=== PATIENT | female | born 1970 | race Caucasian/White ===

== ENCOUNTER 2016-04-28 16:58 | Emergency (ER) | payer SELFPAY ==
[~2016-04-28] VITALS: Ht 162.6 cm; Wt 142.9 kg
[~2016-04-28 16:58] MED LIST: CALC-927 PO; CETI10TA20 PO; CITA20TA12 PO; CYAN250010 PO; FISH1CAP15 PO; HYDR-3729 PO; HYDR12.56 PO; IBUP-1773 PO; IBUP200C75 PO; LISI10TA2 PO; ORLI120C22 PO
--- NOTE | 2016-04-28 17:51 | ED Back Pain ---
General Chief Complaint: Back Problems Stated Complaint: BACK PAIN Nursing Triage Note: AMBULATED TO ROOM 03 WITH COMPLAINTS OF NON INJURY MID BACK PAIN X1 WEEK. Nursing Sepsis Screen: No Definite Risk Source of Information: Patient Exam Limitations: No Limitations History of Present Illness Time Seen by Provider: 17:48 Initial Comments 45-year-old female patient presents to the emergency department complaining to mid to low back pain beginning one week ago. Patient states symptoms began the evening have a mock trauma drill that she was involved in. Location: Lumbar Spine, Paraspinous Muscles Timing/Duration: 1 Week, Constant Pain/Injury Location: Back Radiation: Other Method of Injury: Unknown Modifying Factors: Improves With Immobilization, Worse With Movement Associated Symptoms: muscle spasmsNo fever, No weakness, No numbness in legs/ feet, No tingling in legs/feet, No sensory/motor loss, lower back painNo loss of bladder control, No loss of bowel control Allergies and Home Medications Allergies Coded Allergies: Vezqbzb-Hqf-Tdc Reductase Inhibitor (Verified Allergy, Intermediate, FATIGUE, 11/08/15) Home Medications Calcium Carb/Mag Ox/Zinc Sulf 1 Each Tablet 1 EACH PO DAILY (Reported) Cetirizine HCl 10 Mg Tablet 10 MG PO DAILY (Reported) Citalopram Hydrobromide 20 Mg Tablet 20 MG PO DAILY (Reported) Cyanocobalamin (Vitamin B-12) 2,500 Mcg Tablet 2,500 MCG PO DAILY (Reported) Fish Oil/Dha/Epa 1 Each Capsule 1 EACH PO DAILY (Reported) Hydrochlorothiazide 12.5 Mg Tablet 12.5 MG PO DAILY (Reported) Hydrocodone/Acetaminophen 1 Each Tablet #20 1-2 EACH PO Q4H PRN PRN PAIN Prescribed by: MAGNOLIA ADAM on 01/14/16 1232 Ibuprofen 600 Mg Tablet #30 600 MG PO Q6H Prescribed by: MAGNOLIA ADAM on 01/14/16 1232 Lisinopril 10 Mg Tablet 10 MG PO DAILY (Reported) Orlistat 120 Mg Capsule 120 MG PO TID (Reported) Prednisone 20 Mg Tab #10 40 MG PO DAILY Prescribed by: UNA BURKETT on 04/28/161913 Tramadol HCl 50 Mg Tablet #14 50 MG PO Q4H PRN PRN PAIN Prescribed by: UNA BURKETT on 04/28/161913 Constitutional: no symptoms reported Respiratory: no symptoms reported Cardiovascular: no symptoms reported Gastrointestinal: No abdominal pain, No constipation, No diarrhea, No nausea, No vomiting Genitourinary: No decreased output, No dysuria, No frequency, No hematuria, No pain Musculoskeletal: back painNo joint pain, No neck pain Skin: no symptoms reported Psychiatric/Neurological: Denies Numbness, Denies Paresthesia, Denies Tingling , Denies Weakness All Other Systems Reviewed Negative Unless Noted: Yes (Negative excepted noted.) Past Sgnmcvs-Ukkvmz-Sroqcz Hx Patient Social History Type Used: Cigarettes Recent Foreign Travel: No Contact w/Someone Who Travel: No Recent Infectious Disease Expo: No Recent Hopitalizations: No Seasonal Allergies Seasonal Allergies: Yes Surgeries HX Surgeries: Yes (PINS IN LEFT HIP, BOWEL REPAIR FROM C-SECTON, FATTY TUMOR ABDOMEN, WISDOM T) Surgeries: Section Respiratory Hx Respiratory Disorders: Yes (SEASONAL) Respiratory Disorders: Asthma Cardiovascular Hx Cardiac Disorders: Yes Cardiac Disorders: Hypertension Neurological Hx Neurological Disorders: No Reproductive System Hx Reproductive Disorders: Yes (MENORRHAGIA) Sexually Transmitted Disease: No HIV/AIDS: No Female Reproductive Disorders: Menstrual Problems, Endometriosis Genitourinary Hx Genitourinary Disorders: No Gastrointestinal Hx Gastrointestinal Disorders: Yes (FATTY LIVER) Gastrointestinal Disorders: Chronic Constipation Musculoskeletal Hx Musculoskeletal Disorders: Yes (HIP PAIN) Musculoskeletal Disorders: Arthritis Endocrine Hx Endocrine Disorders: Yes (HYPOGLYCEMIC EPISODES) HEENT HX ENT Disorders: Yes (PARTIAL) Loss of Vision: Denies Hearing Impairment: Denies Cancer Hx Cancer: No Psychosocial Hx Psychiatric Problems: Yes Behavioral Health Disorders: Anxiety Integumentary HX Skin/Integumentary Disorder: Yes (STRESS RELATED) Skin/Integumentary Disorders: Eczema Blood Transfusions Hx Blood Disorders: Yes (HX ANEMIA) Adverse Reaction to a Blood Tr: No Reviewed Nursing Assessment Reviewed/Agree w Nursing PMH: Yes Family Medical History Significant Family History: No Pertinent Family Hx Physical Exam Vital Signs Vital Sign - Last 12Hours 04/28/16 17:15 Temp 98.0 Pulse 81 Resp 16 B/P 147/87 Pulse Ox 98 Capillary Refill : Less Than 3 Seconds General Appearance: No Apparent Distress WD/WN Cardiovascular: Regular Rate, Rhythm No Edema No Murmur Normal Peripheral Pulses Respiratory: Lungs Clear Normal Breath Sounds No Respiratory Distress Peripheral Pulses: 2+ Dorsalis Pedis (R), 2+ Left Dors-Pedis (L) Gastrointestinal: Non Tender SoftNo Distended Back: Normal Inspection Decreased Range of Motion Muscle Spasm Vertebral Tenderness (lumbar tenderness. ) Extremity: Normal Capillary Refill Normal Inspection Normal Range of Motion Non Tender Neurologic/Psychiatric: Alert Oriented x3 No Motor/Sensory Deficits Normal Mood/Affect Skin: Normal Color Warm/Dry Progress/Results/Core Measures Results/Orders My Orders Orders-UNA BURKETT Hydrocodone/Apap 5/325 Tablet (Lortab 5 (04/28/16 18:26) T-Spine 3v-Ap, Lat, Swimmers (04/28/16 18:26) Vital Signs/I&O Vital Sign - Last 12Hours 04/28/16 04/28/16 17:15 19:32 Temp 98.0 98.0 Pulse 81 81 Resp 16 16 B/P 147/87 Pulse Ox 98 98 Blood Pressure Mean: 107 Diagnostic Imaging Diagonstic Imaging: Xray Plain Films/CT/US/NM/MRI: other (thoracic spine) Comments FINDINGS: Alignment of the thoracic spine appears within normal limits. The vertebral body heights appear maintained. There are multilevel degenerative endplate changes present as well as some anterolateral mid thoracic osteophytes. The visualized portion of lungs is clear. Heart size appears normal. IMPRESSION: 1. Normal height and alignment of the thoracic spine. 2. Multilevel degenerative endplate changes with multilevel anterolateral bridging osteophytes. Dictated on workstation # [id number] Reviewed: Reviewed by Me (radiology report reviewed by me) Departure Communication Progress Notes Diagnostic findings discussed with the patient. Patient reports improvement in symptoms with medications. Plan for discharge to home. All return precautions were discussed with the patient as described in the discharge instructions of this report. Patient voices understanding and agrees with the treatment plan. Impression Impression: Primary Impression: Thoracic back pain Qualified Code: M54.6 - Pain in thoracic spine Disposition: HOME, SELF-CARE Condition: Improved Departure-Patient Inst. Decision time for Depature: 19:12 Referrals: HEIDY SHIPMAN DO (PCP) Primary Care Physician DIANN OROZCO (Family) Primary Care Physician Patient Instructions: Upper Back Pain (DC), Muscle Strain (DC) Add. Discharge Instructions: All discharge instructions reviewed with patient and/or family. Voiced understanding. Medications as instructed. Ibuprofen 800 mg by mouth every 8 hours as needed for pain. Ice packs or heating pads as needed for pain. No heavy lifting, pushing, pulling, twisting, bending, climbing 7 days. Follow- up with her family practitioner if no improvement in symptoms in 7-10 days. Return to the emergency department for worsened pain, numbness, weakness, bowel incontinence, bladder incontinence, or any other concerns. Scripts Tramadol HCl 50 Mg Bnvblj36 Mg PO Q4H PRN PAIN #14 TAB Ref 0 Prov:UNA BURKETT 04/28/16 Prednisone 20 Mg Tab40 Mg PO DAILY #10 TAB Ref 0 Prov:UNA BURKETT 04/28/16 UNA BURKETT Apr 28, 2016 17:51
[2016-04-28] MEDS ORDERED: HYDROcodone/APAP 5 MG/325 MG (LORTAB) TAB PO STA (18:26)
--- NOTE | 2016-04-28 19:05 | Diagnostic Imaging Report ---
INDICATION: Upper back pain. No known trauma. FINDINGS: Alignment of the thoracic spine appears within normal limits. The vertebral body heights appear maintained. There are multilevel degenerative endplate changes present as well as some anterolateral mid thoracic osteophytes. The visualized portion of lungs is clear. Heart size appears normal. IMPRESSION: 1. Normal height and alignment of the thoracic spine. 2. Multilevel degenerative endplate changes with multilevel anterolateral bridging osteophytes. Dictated by: Dictated on workstation # [id number]
[2016-04-28] MEDS ORDERED: PRD20T PO (19:14)
[2016-04-28] MEDS ORDERED: TRAM50TA2 PO (19:14)
[2016-04-28 19:32] VITALS: BP 147/87
== END 2016-04-28 19:32 | disposition home or self-care (01) ==
LOC: EDUNIT# 16:58 → ER 17:00
DX: M47.814 Spondylosis without myelopathy or radiculopathy, thoracic region (principal); I10 Essential (primary) hypertension; Z79.899 Other long term (current) drug therapy
CPT/HCPCS: 72072; 99281

== ENCOUNTER → 2017-07-25 | Outpatient (CLI) | payer SELFPAY ==
[~2017-07-25] MED LIST changes: +PRD20T PO; +TRAM50TA2 PO
--- NOTE | 2017-07-25 10:15 | Diagnostic Imaging Report ---
EXAMINATION: Two views of the left hip INDICATION: Left hip pain. FINDINGS: There has been prior fixation of the left femoral neck. There is abnormal morphology demonstrated of the humeral head with a flattened superior margin and advanced arthritic changes present within the left hip with acetabular osteophyte formation and sclerosis. There is no evidence of an acute fracture or suspicious bone lesion. IMPRESSION: 1. Remote fixation of the left femoral neck, with morphologically abnormal left femoral head and advanced secondary left hip osteoarthritic changes. Dictated by: Dictated on workstation # [id number]
--- NOTE | 2017-07-25 10:19 | Diagnostic Imaging Report ---
EXAMINATION: Two views of the right hip INDICATION: Right hip pain. FINDINGS: There are some mild osteoarthritic changes within the right hip. There is no dislocation. There is no acute fracture. There is some small calcification at the acetabular roof which could relate to underlying labral pathology. Visualized portions of the pelvic ring unremarkable. IMPRESSION: 1. Mild right hip osteoarthritic changes without evidence of an acute fracture or dislocation. Some calcification at the lateral acetabular roof may be reflective of underlying acetabular labral pathology. Dictated by: Dictated on workstation # [id number]
== END ==
LOC: RAD 08:41
PROVIDERS: ATTEND Nurse Practitioner Family
DX: M16.0 Bilateral primary osteoarthritis of hip (principal)
CPT/HCPCS: 73502

== ENCOUNTER 2018-06-10 17:00 | Emergency (ER) | payer SELFPAY ==
[~2018-06-10] VITALS: Ht 162.6 cm; Wt 143.8 kg
[~2018-06-10 17:00] MED LIST changes: +IBUP-2185 PO; -IBUP200C75 PO
--- OUTSIDE RECORDS SUMMARY | 2018-06-10 17:05 | XMS REPORT ---
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 Role Phone DIANN OROZCO Unavailable PROBLEMS Type Condition ICD9-CM Code LTD84-FJ Code Onset Dates Condition Status SNOMED Code Problem Anxiety F41.9 Active 91411782 Problem Colon cancer screening Z12.11 Active 864225637 Problem Metabolic syndrome X E88.81 Active 677985220 Problem Primary osteoarthritis of left hip M16.12 Active 336593938 Problem Slow transit constipation K59.01 Active 56794415 Problem BMI 45.0-49.9, adult Z68.42 Active 177520478 Problem Essential (primary) hypertension I10 Active 90958396 Problem Breast cancer screening Z12.31 Active 002586027 Problem Gynecologic exam normal Z01.419 Active 773170160 Problem Influenza A J10.1 Active 885818588 Problem External hemorrhoid, bleeding K64.4 Active 66747052 Problem Right upper quadrant abdominal pain R10.11 Active 695989295 Problem Constipation, chronic K59.00 Active 055063632 Problem Fatty liver K76.0 Active 606576243 Problem Hip pain, left M25.552 Active 16498988 Problem Maida-menopausal N95.1 Active 389556620718813 Problem Morbid obesity, unspecified obesity type E66.01 Active 780418041 Problem Right lateral abdominal pain R10.9 Active 458129430 Problem Vaginal candidiasis B37.3 Active 58375558 Problem Urinary incontinence, unspecified type R32 Active 064174308 Problem Lumbago with sciatica, left side M54.42 Active 781398611 ALLERGIES No Information ENCOUNTERS [facility]counter Location Date [facility] [address] [id number] [place] [id number] Jan, [facility] [address] [id number] [place] [id number] Jan, Encounter for immunization Z23 [facility] [address] [id number][place] [id number] Dec, [facility] [address] [id number], [place] [id number] Dec, Dyshidrotic eczema L30.1 [facility] [address] [facility] [id number] [place] [address] Sep, Primary osteoarthritis of left hip M16.12 and Trochanteric bursitis, left hip M70.[address] [facility] [address] [id number], [place] [id number] Sep, [facility] [address] [id number][place] [address] Aug, Hip pain, left M25.552 [facility] [address] [id number][place] [id number] Jul, Hip pain, left M25.[address] [facility] [address] [id number], [place] [id number] Jul, Metabolic syndrome X E88.81 ; Hip pain, left M25.552 ; Morbid obesity, unspecified obesity type E66.01 and BMI 50.0-59.9, adult Z68.[address] [facility] [address] [id number][place] [id number] Apr, [facility] [address] [id number], [place] [id number] Apr, Lumbago with sciatica, left side M54.42 [facility] [address] [id number], [place] [id number] Apr, [facility] [address] [id number], [place] [id number] Mar, Metabolic syndrome X E88.81 ; Anxiety F41.9 ; BMI 45.0-49.9, adult Z68.42 and Encounter for [facility] Z23 [facility] [address] [id number], [place] [id number] Jan, Influenza A J10.1 ; BMI 45.0-49.9, adult Z68.42 and External hemorrhoid, bleeding K64.[address] [facility] [address] [id number], [place] [address] Jan, Colon cancer screening Z12.11 [facility] [address] [id number], [place] [id number] Jan, Gynecologic exam normal Z01.419 ; Breast cancer screening Z12.31 ; Colon cancer screening Z12.11 and BMI 50.0-59.9, adult Z68.[address] [facility] [address] [id number], [place] [id number] Jan, [facility] [address] [id number], [place] [id number] Jan, [facility] [address] [id number], [place] [id number] Nov, Lumbago with sciatica, left side M54.42 [facility] [id number], [place] [id number] Nov, Lumbago with sciatica, left side M54.42 [facility] [address] [id number], [place] [id number] Sep, Metabolic syndrome X E88.81 ; Anxiety F41.9 and Lumbago with sciatica, left side M54.[address] [facility] [address] [id number], [place] [id number] Sep, [facility] [address] [id number], [place] [address] Sep, [facility] [address] [id number], [place] [id number] Sep, Lumbago with sciatica, left side M54.42 [facility] [address] [id number], [place] [id number] Aug, [facility] [address] [id number], [place] [id number] Aug, [facility] [address] [id number], [place] [id number] Jul, Lumbago with sciatica, left side M54.[address] [facility] [address] [id number], [place] [id number] Jul, Anxiety F41.[address] [facility] [address] [id number], [place] [id number] Jul, Lumbago with sciatica, left side M54.42 and Anxiety F41.[address] [facility] [address] [id number] [place] [id number] May, Lumbago with sciatica, left side M54.[address] [facility] [address] [id number], [place] [id number] Feb, Dermatitis L30.9 and Dysuria R30.[address] [facility] [address] [id number], [place] [id number] Jan, Vaginal candidiasis B37.[address] [facility] [address] [id number], [place] [id number] Dec, [facility] [address] [id number], [place] [id number] Dec, Dyshidrotic eczema L30.1 [facility] [address] [address] [id number], [place] [id number] Nov, [facility] [address] [id number], [place] [address] Nov, Unexplained endometrial cells on cervical Pap smear R87.618 and Maida-menopausal N95.1 [facility] [address] [id number], [place] [id number] Oct, Well woman exam with routine gynecological exam Z01.419 ; Urinary incontinence, unspecified type R32 ; Breast cancer screening Z12.39 ; Morbid obesity, unspecified obesity type E66.01 and Maida-menopausal N95.1 [facility] [address] [id number], [place] [id number] Sep, Right lateral abdominal pain R10.9 [facility] [address] [id number][place] [id number] Aug, Fatigue, unspecified type R53.[address] [facility] [address] [id number], [place] [address] Aug, [facility] [address] [id number], [place] [id number] Jul, Essential (primary) hypertension I10 and Right upper quadrant pain R10.[address] [facility] [address] [id number], [place] [id number] Jul, [facility] [address] [address] [id number], [place] [id number] Jul, Acute pain of right knee M25.561 ; Slow transit constipation K59.01 and Fatty liver K76.0 [facility] [address] [id number], [place] [id number] May, [facility] [address] [id number], [place] [id number] Apr, Dental examination Z01.20 [facility] [address] [id number], [place] [id number] Apr, Encounter for dental examination Z01.20 and Dental caries, unspecified K02.9 [facility] [address] [address] [id number], [place] [id number] Mar, Encounter for dental examination Z01.20 [facility] [address] [id number], [place] [id number] Feb, Encounter for dental examination Z01.[address] [facility] [address] [id number], [place] [id number] Jan, [facility] [address] [address] [id number], [place] [id number] Jan, Encounter for dental examination Z01.20 [facility] [address] [place] [address] AVE [id number], [place] [id number] Jan, Right upper quadrant abdominal pain R10.11 ; Fatty liver K76.0 ; Constipation, chronic K59.00 and Morbid obesity due to excess calories E66.01 [facility] [id number], [place] [id number] Dec, [facility] [address] [id number], [place] [id number] Dec, Fatty liver K76.0 ; Slow transit constipation K59.01 and Hip pain , left M25.552 [facility] [id number], [place] [id number] Nov, [facility] [id number], [place] [id number] Nov, Essential (primary) hypertension I10 [facility] [id number], [place] [id number] Oct, [facility] [address] [id number], [place] [id number] Oct, Abdominal pain, right upper quadrant 789.01 ; Constipation 564.00 and Hypertension 401.9 [facility] [address] [id number], [place] [id number] Sep, Right upper quadrant abdominal pain 789.01 IMMUNIZATIONS No Known Immunizations SOCIAL HISTORY Never Assessed REASON FOR VISIT multiple refills PLAN OF CARE VITAL SIGNS MEDICATIONS Medication Instructions Dosage Frequency Start Date End Date Duration Status Gabapentin 300 MG TAKE ONE CAPSULE BY MOUTH ONCE DAILY AT BEDTIME 90 Active Lisinopril 2.5 MG TAKE 1 TABLET BY MOUTH ONCE DAILY 90 Active Hydrochlorothiazide 12.5 MG TAKE 1 CAPSULE BY MOUTH ONCE DAILY 90 Active RESULTS No Results PROCEDURES No Known procedures INSTRUCTIONS MEDICATIONS ADMINISTERED No Known Medications MEDICAL (GENERAL) HISTORY Type Description Date Medical History hypertension Medical History anxiety Medical History asthma Medical History obesity Medical History constipation Medical History fatty liver disease Medical History CT of the abdomen showing fatty liver disease and mild spleenomeagly Medical History high blood pressure Medical History external hemorrhoids Surgical History left hip repair age 11 Surgical History section 1994 Surgical History bowel surgery 1996 Surgical History fatty tumor abdomen 1999 Surgical History Colonscopy Normal 11/2015 Surgical History DNC and Biopsy 2016 Hospitalization History Surgery(s)/Childbirth(s)
--- OUTSIDE RECORDS SUMMARY | 2018-06-10 17:05 | XMS REPORT ---
Author Author DIANN OROZCO [facility] Address [address] [place] [address] Care Team Providers Care Flow Manager Name Role Phone DIANN OROZCO Unavailable PROBLEMS Type Condition ICD9-CM Code AIV63-TY Code Onset Dates Condition Status SNOMED Code Problem Anxiety F41.9 Active 85782562 Problem Colon cancer screening Z12.11 Active 097770220 Problem Metabolic syndrome X E88.81 Active 770027049 Problem Primary osteoarthritis of left hip M16.12 Active 950068071 Problem Slow transit constipation K59.01 Active 97429712 Problem BMI 45.0-49.9, adult Z68.42 Active 063423116 Problem Essential (primary) hypertension I10 Active 15054868 Problem Breast cancer screening Z12.31 Active 023560510 Problem Gynecologic exam normal Z01.419 Active 836133733 Problem Influenza A J10.1 Active 096877660 Problem External hemorrhoid, bleeding K64.4 Active 07827358 Problem Right upper quadrant abdominal pain R10.11 Active 392131892 Problem Constipation, chronic K59.00 Active 924887281 Problem Fatty liver K76.0 Active 445119010 Problem Hip pain, left M25.552 Active 70225127 Problem Maida-menopausal N95.1 Active 796682648245711 Problem Morbid obesity, unspecified obesity type E66.01 Active 337224780 Problem Right lateral abdominal pain R10.9 Active 270803403 Problem Vaginal candidiasis B37.3 Active 40510675 Problem Urinary incontinence, unspecified type R32 Active 126217602 Problem Lumbago with sciatica, left side M54.42 Active 152440058 ALLERGIES No Information ENCOUNTERS Encounter Location Date Diagnosis [facility] [address] [address] [id number] [place] [id number] Jan, [facility] [address] [id number] [place] [id number] Jan, Encounter for immunization Z23 [facility] [address] [id number] [id number] Dec, [facility] [address] [id number], [place] [id number] Dec, Dyshidrotic eczema L30.1 [facility] [address] [facility] [id number] [place] [address] Sep, Primary osteoarthritis of left hip M16.12 and Trochanteric bursitis, left hip M70.[address] [facility] [address] [id number][place] [id number] Sep, [facility] [address] [id number], [place] 986391570 Aug, Hip pain, left M25.552 [facility] [address] [id number], [place] 259639093 Jul, Hip pain, left M25.[address] [facility] [address] [id number], [place] 158278574 Jul, Metabolic syndrome X E88.81 ; Hip pain, left M25.552 ; Morbid obesity, unspecified obesity type E66.01 and BMI 50.0-59.9, adult Z68.[address] [facility] [address] [id number], [place] [id number] Apr, [facility] [address] [id number], [place] [id number] Apr, Lumbago with sciatica, left side M54.42 [facility] [address] [id number], [place] [id number] Apr, [facility] [address] [id number], [place] [id number] Mar, Metabolic syndrome X E88.81 ; Anxiety F41.9 ; BMI 45.0-49.9, adult Z68.42 and Encounter for immunization Z23 [facility] [address] [id number], [place] [id number] Jan, Influenza A J10.1 ; BMI 45.0-49.9, adult Z68.42 and External hemorrhoid, bleeding K64.[address] [facility] [address] [id number], [place] 579412115 Jan, Colon cancer screening Z12.11 [facility] [address] [id number], [place] [id number] Jan, Gynecologic exam normal Z01.419 ; Breast cancer screening Z12.31 ; Colon cancer screening Z12.11 and BMI 50.0-59.9, adult Z68.[address] [facility] [address] [id number], [place] [id number] Jan, [facility] [address] [id number], [place] [id number] Jan, [facility] [address] [id number], [place] [id number] Nov, Lumbago with sciatica, left side M54.42 [facility] [address] [id number], [place] [id number] Nov, Lumbago with sciatica, left side M54.42 [facility] [address] [id number], [place] [id number] Sep, Metabolic syndrome X E88.81 ; Anxiety F41.9 and Lumbago with sciatica, left side M54.[address] [facility] [address] [id number], [place] 190815625 Sep, [facility] [address] [id number], [place] 115497021 Sep, [facility] [address] [id number], [place] 407404012 Sep, Lumbago with sciatica, left side M54.42 [facility] [address] [id number], [place] [id number] Aug, [facility] [address] [id number], [place] [id number] Aug, [facility] [address] [id number], [place] 456979932 Jul, Lumbago with sciatica, left side M54.[address] [facility] [address] [id number], [place] 813669030 Jul, Anxiety F41.9 [facility] [address] [id number], [place] [id number] Jul, Lumbago with sciatica, left side M54.42 and Anxiety F41.9 [facility] [address] [id number] [facility] [id number] May, Lumbago with sciatica, left side M54.[address] [facility] [address] [id number], [place] 520587731 Feb, Dermatitis L30.9 and Dysuria R30.[address] [facility] [address] [id number], [place] 287993893 Jan, Vaginal candidiasis B37.[address] [facility] [address] [id number], [place] 193538884 Dec, [facility] [address] [id number], [place] [id number] Dec, Dyshidrotic eczema L30.1 [facility] [address] [id number], [place] [id number] Nov, [facility] [address] [id number], [place] 855512599 Nov, Unexplained endometrial cells on cervical Pap smear R87.618 and Maida-menopausal N95.1 [facility] [address] [id number], [place] 476915933 Oct, Well woman exam with routine gynecological exam Z01.419 ; Urinary incontinence, unspecified type R32 ; Breast cancer screening Z12.39 ; Morbid obesity, unspecified obesity type E66.01 and Maida-menopausal N95.1 [facility] [address] [id number], [place] 739350137 Sep, Right lateral abdominal pain R10.9 [facility] [address] [id number], [place] [id number] Aug, Fatigue, unspecified type R53.[address] [facility] [address] [id number], [place] 955062204 Aug, [facility] [address] [id number], [place] 933314855 Jul, Essential (primary) hypertension I10 and Right upper quadrant pain R10.[address] [facility] [address] [id number], [place] 407743157 Jul, [facility] [address] [id number], [place] 067505365 Jul, Acute pain of right knee M25.561 ; Slow transit constipation K59.01 and Fatty liver K76.0 [facility] [address] [id number], [place] [id number] May, [facility] [address] [id number], [place] [id number] Apr, Dental examination Z01.20 [facility] [address] [id number], [place] 854383031 Apr, Encounter for dental examination Z01.20 and Dental caries, unspecified K02.9 [facility] [address] [id number], [place] 784836707 Mar, Encounter for dental examination Z01.20 [facility] [address] [id number], [place] 428145780 Feb, Encounter for dental examination Z01.[address] [facility] [address] [id number], [place] [id number] Jan, [facility] [address] [id number], [place] 852741719 Jan, Encounter for dental examination Z01.20 [facility] Sam[facility]go [facility] [address] [id number], [place] 691669771 Jan, Right upper quadrant abdominal pain R10.11 ; Fatty liver K76.0 ; Constipation, chronic K59.00 and Morbid obesity due to excess calories E66.01 [facility] R[address]am[address] [place] [address] AVE [id number], [place] [id number] Dec, [facility] LabsRODRIGUEZ[address] [id number], [place] 284036043 Dec, Fatty liver K76.0 ; Slow transit constipation K59.01 and Hip pain , left M25.552 [facility] Banegas[address] [place] [address] AVE [id number], [place] [id number] Nov, [facility] [address] [id number], [place] 887066383 Nov, Essential (primary) hypertension I10 [facility] LabsRODRIGUEZ [employer] [place] [address] AVE [id number], [place] [id number] Oct, [facility] [address] [id number], [place] 750776960 Oct, Abdominal pain, right upper quadrant 789.01 ; Constipation 564.00 and Hypertension 401.9 [facility] [address] [id number], [place] 991138649 Sep, Right upper quadrant abdominal pain 789.01 IMMUNIZATIONS Vaccine Route Administration Date Status FLULAVAL QUAD 0.5ML (6 MO AND UP) 2017 IM Intramuscular Jan 12, 2018 Administered SOCIAL HISTORY Never Assessed REASON FOR VISIT Flu injection Loraine RN PLAN OF CARE VITAL SIGNS MEDICATIONS Unknown Medications RESULTS No Results PROCEDURES Procedure Date Ordered Result Body Site FLULAVAL QUAD 0.5ML (6 MO AND UP) 2018 Jan 12, 2018 SINGLE IMMUNIZATION ADMIN Jan 12, 2018 INSTRUCTIONS MEDICATIONS ADMINISTERED No Known Medications MEDICAL [...]
--- OUTSIDE RECORDS SUMMARY | 2018-06-10 17:06 | XMS REPORT ---
Author Author DIANN OROZCO [facility] Address [address] [place] [address] Care Team Providers Care Wood Boat Builder Supervisor Name Role Phone DIANN OROZCO Unavailable PROBLEMS Type Condition ICD9-CM Code ONM29-BR Code Onset Dates Condition Status SNOMED Code Problem Anxiety F41.9 Active 96208098 Problem Colon cancer screening Z12.11 Active 714072345 Problem Metabolic syndrome X E88.81 Active 817651392 Problem Primary osteoarthritis of left hip M16.12 Active 156399224 Problem Slow transit constipation K59.01 Active 58592779 Problem BMI 45.0-49.9, adult Z68.42 Active 442617919 Problem Essential (primary) hypertension I10 Active 29971621 Problem Breast cancer screening Z12.31 Active 982237607 Problem Gynecologic exam normal Z01.419 Active 312674160 Problem Influenza A J10.1 Active 993874723 Problem External hemorrhoid, bleeding K64.4 Active 45538943 Problem Right upper quadrant abdominal pain R10.11 Active 933708583 Problem Constipation, chronic K59.00 Active 296670730 Problem Fatty liver K76.0 Active 823761187 Problem Hip pain, left M25.552 Active 39223631 Problem Maida-menopausal N95.1 Active 371985086243724 Problem Morbid obesity, unspecified obesity type E66.01 Active 690547306 Problem Right lateral abdominal pain R10.9 Active 008639063 Problem Vaginal candidiasis B37.3 Active 70984715 Problem Urinary incontinence, unspecified type R32 Active 153441884 Problem Lumbago with sciatica, left side M54.42 Active 043886056 ALLERGIES No Information ENCOUNTERS Encounter Location Date Diagnosis [facility] [address] [facility] [id number] [place] [address] Sep, Primary osteoarthritis of left hip M16.12 and Trochanteric bursitis, left hip M70.62 [facility] [address] [id number], [place] [id number] Sep, [facility] [id number], [place] [id number] Aug, Hip pain, left M25.552 [facility] [address] [id number], [place] [id number] Jul, Hip pain, left M25.552 [facility] MICHAEL Banegas[address] [place] [address] AVE [id number], [place] 123238950 Jul, Metabolic syndrome X E88.81 ; Hip pain, left M25.552 ; Morbid obesity, unspecified obesity type E66.01 and BMI 50.0-59.9, adult Z68.43 [facility] [address] [id number], [place] [id number] Apr, [facility] Banegas[address] [place] [address] AVE [id number], [place] 636672473 Apr, Lumbago with sciatica, left side M54.42 [facility] Banegas[address] [place] [address] AVE [id number], [place] [id number] Apr, [facility] Baneg[address] [place] [address] AVE [id number], [place] 147735956 Mar, Metabolic syndrome X E88.81 ; Anxiety F41.9 ; BMI 45.0-49.9, adult Z68.42 and Encounter for immunization Z23 [facility] [address] [place] [address] AVE [id number], [place] [id number] Jan, Influenza A J10.1 ; BMI 45.0-49.9, adult Z68.42 and External hemorrhoid, bleeding K64.4 [facility] [employer] [place] [address] AVE [id number], [place] [id number] Jan, Colon cancer screening Z12.11 [facility] [employer] [place] [address] AVE [id number], [place] 241124637 Jan, Gynecologic exam normal Z01.419 ; Breast cancer screening Z12.31 ; Colon cancer screening Z12.11 and BMI 50.0-59.9, adult Z68.[address] [facility] [address] [id number] [place] [id number] Jan, [facility] [address] [id number] [facility] [place] [id number] Jan, [facility] [address] [id number] [place] [id number] Nov, Lumbago with sciatica, left side M54.[address] [facility] [address] [id number] [place] [id number] Nov, Lumbago with sciatica, left side M54.42 [facility] [address] [id number] [facility] [place] [address] Sep, Metabolic syndrome X E88.81 ; Anxiety F41.9 and Lumbago with sciatica, left side M54.42 [facility] [address] [id number] [facility] [place] [id number] Sep, [facility] [address] [id number] [facility] [place] [id number] Sep, [facility] [address] [id number] [facility] [address]571247[address] Sep, Lumbago with sciatica, left side M54.42 [facility] [address] [id number] [place] [id number] Aug, [facility] [address] [id number] [place] [id number] Aug, [facility] [address] [id number] [place] [id number] Jul, Lumbago with sciatica, left side M54.[address] [facility] [address] [id number] [place] [address] Jul, Anxiety F41.9 [facility] [address] [id number] [place] 667164582 Jul, Lumbago with sciatica, left side M54.42 and Anxiety F41.9 [facility] [address] [id number], [place] 039401092 May, Lumbago with sciatica, left side M54.[address] [facility] [address] [id number], [place] 217773745 Feb, Dermatitis L30.9 and Dysuria R30.[address] [facility] [address] [id number], [place] 182171385 Jan, Vaginal candidiasis B37.3 [facility] [address] [id number], [place] [id number] Dec, [facility] [address] [id number], [place] 976852482 Dec, Dyshidrotic eczema L30.[address] [facility] [address] [id number], [place] 940452277 Nov, [facility] [address] [id number], [place] 652238378 Nov, Unexplained endometrial cells on cervical Pap smear R87.618 and Maida-menopausal N95.1 [facility] [address] [id number], [place] 445498248 Oct, Well woman exam with routine gynecological exam Z01.419 ; Urinary incontinence, unspecified type R32 ; Breast cancer screening Z12.39 ; Morbid obesity, unspecified obesity type E66.01 and Maida-menopausal N95.1 [facility] [address] [id number], [place] 324408561 Sep, Right lateral abdominal pain R10.9 [facility] [address] [id number], [place] [id number] Aug, Fatigue, unspecified type R53.[address] [facility] [address] [id number], [place] 341265108 Aug, [facility] [address] [id number], [place] 351718917 Jul, Essential (primary) hypertension I10 and Right upper quadrant pain R10.11 [facility] [address] [id number], [place] 498675996 Jul, [facility] [address] [id number], [place] 936838278 Jul, Acute pain of right knee M25.561 ; Slow transit constipation K59.01 and Fatty liver K76.0 [facility] [address] [id number], [place] [id number] May, [facility] [address] [id number], [place] 715086809 Apr, Dental examination Z01.20 [facility] [address] [id number], [place] 567251206 Apr, Encounter for dental examination Z01.20 and Dental caries, unspecified K02.9 [facility] [address] [id number], [place] [id number] Mar, Encounter for dental examination Z01.20 [facility] [address] [id number], [place] 832396926 Feb, Encounter for dental examination Z01.20 [facility] [address] [id number], [place] [id number] Jan, [facility] [address] [id number], [place] [id number] Jan, Encounter for dental examination Z01.20 [facility] [address] [id number], [place] 059429460 Jan, Right upper quadrant abdominal pain R10.11 ; Fatty liver K76.0 ; Constipation, chronic K59.00 and Morbid obesity due to excess calories E66.[address] [facility] [address] [id number], [place] 582694974 Dec, [facility] [address] [id number], [place] 492797868 Dec, Fatty liver K76.0 ; Slow transit constipation K59.01 and Hip pain , left M25.552 [facility] [address] [id number], [place] 539676352 Nov, [facility] [address] [id number], [place] [id number] Nov, Essential (primary) hypertension I10 [facility] Banegas[address] [place] [address] AVE [id number], [place] [id number] Oct, [facility] [address] [id number], [place] 630442461 Oct, Abdominal pain, right upper quadrant 789.01 ; Constipation 564.00 and Hypertension 401.9 [facility] [address] [place] [address] AVE [id number] [place], [place] 122389131 Sep, Right upper quadrant abdominal pain 789.01 IMMUNIZATIONS No Known Immunizations SOCIAL HISTORY Never Assessed REASON FOR VISIT pals celebrex PLAN OF CARE VITAL SIGNS MEDICATIONS Medication Instructions Dosage Frequency Start Date End Date Duration Status Celebrex 200 mg Orally Once a day for pain 1 capsule with food May, Active RESULTS No Results PROCEDURES No Known [...]
--- OUTSIDE RECORDS SUMMARY | 2018-06-10 17:06 | XMS REPORT ---
Author Author DIANN OROZCO [facility] Address [address] [place] [address] Care Team Providers Care Mandolin Repair Person Name Role Phone DIANN OROZCO Unavailable PROBLEMS Type Condition ICD9-CM Code QNQ47-PM Code Onset Dates Condition Status SNOMED Code Problem Anxiety F41.9 Active 29013342 Problem Colon cancer screening Z12.11 Active 970947646 Problem Metabolic syndrome X E88.81 Active 852198803 Problem Primary osteoarthritis of left hip M16.12 Active 117960646 Problem Slow transit constipation K59.01 Active 26280832 Problem BMI 45.0-49.9, adult Z68.42 Active 502923857 Problem Essential (primary) hypertension I10 Active 68872481 Problem Breast cancer screening Z12.31 Active 301417033 Problem Gynecologic exam normal Z01.419 Active 045618931 Problem Influenza A J10.1 Active 155501325 Problem External hemorrhoid, bleeding K64.4 Active 78952259 Problem Right upper quadrant abdominal pain R10.11 Active 836379336 Problem Constipation, chronic K59.00 Active 834502645 Problem Fatty liver K76.0 Active 902366871 Problem Hip pain, left M25.552 Active 28580192 Problem Maida-menopausal N95.1 Active 904509714449371 Problem Morbid obesity, unspecified obesity type E66.01 Active 033590796 Problem Right lateral abdominal pain R10.9 Active 633732933 Problem Vaginal candidiasis B37.3 Active 18883513 Problem Urinary incontinence, unspecified type R32 Active 814273738 Problem Lumbago with sciatica, left side M54.42 Active 243790426 ALLERGIES No Information ENCOUNTERS Encounter Location Date Diagnosis [facility] [address] [facility] [id number] [place] [address] Sep, Primary osteoarthritis of left hip M16.12 and Trochanteric bursitis, left hip M70.62 [facility] [address] [id number], [place] [id number] Sep, [facility] [address] [id number], [place] [address] Aug, Hip pain, left M25.552 [facility] [address] [id number], [place] [id number] Jul, Hip pain, left M25.552 [facility] [address] [place] [address] AVE [id number], [place] 825888920 Jul, Metabolic syndrome X E88.81 ; Hip pain, left M25.552 ; Morbid obesity, unspecified obesity type E66.01 and BMI 50.0-59.9, adult Z68.43 [facility] [address] [id number], [place] [address]24230[address] Apr, [facility] [address] [place] [address] AVE [id number], [place] [id number] Apr, Lumbago with sciatica, left side M54.42 [facility] [address] [place] [address] AVE [id number], [place] [id number] Apr, [facility] [address] [place] [address] AVE [id number], [place] [id number] Mar, Metabolic syndrome X E88.81 ; Anxiety F41.9 ; BMI 45.0-49.9, adult Z68.42 and Encounter for immunization Z23 [facility] [address] [place] [address] AVE [id number], [place] [id number] Jan, Influenza A J10.1 ; BMI 45.0-49.9, adult Z68.42 and External hemorrhoid, bleeding K64.4 [facility] [address] [place] [address] AVE [id number], [place] 764477084 Jan, Colon cancer screening Z12.11 [facility] [address] [place] [address] AVE [id number], [place] 129452952 Jan, Gynecologic exam normal Z01.419 ; Breast cancer screening Z12.31 ; Colon cancer screening Z12.11 and BMI 50.0-59.9, adult Z68.[address] [facility] [address] [id number] [place]IG[place] [employer] [id number] Jan, [facility] [address] [id number] [facility] [place] [address] Jan, [facility] [address] [id number] [place] [employer], [place] [id number] Nov, Lumbago with sciatica, left side M54.[address] [facility] [address] [id number] [place] [address] Nov, Lumbago with sciatica, left side M54.[address] [facility] [address] [id number] [facility] [place] [id number] Sep, Metabolic syndrome X E88.81 ; Anxiety F41.9 and Lumbago with sciatica, left side M54.[address] [facility] [address] [id number] [facility] [place] [id number] Sep, [facility] [address] [id number] [facility] [place] [id number] Sep, [facility] [address] [id number]. [facility]ANCIS [facility] [id number] Sep, Lumbago with sciatica, left side M54.[address] [facility] [address] [id number] [place] [id number] Aug, [facility] [address] [id number] [place] [employer] [id number] Aug, [facility] [address] [id number] [place] [address] Jul, Lumbago with sciatica, left side M54.42 [facility] [address] [id number] RODRIGUEZ [employer] [id number] Jul, Anxiety F41.9 [facility] [address] [id number] [place] [employer], [place] [id number] Jul, Lumbago with sciatica, left side M54.42 and Anxiety F41.9 [facility] [address] [id number], [place] 932702544 May, Lumbago with sciatica, left side M54.[address] [facility] [address] [id number], [place] 953977793 Feb, Dermatitis L30.9 and Dysuria R30.[address] [facility] [address] [id number], [place] 5497296[address] Jan, Vaginal candidiasis B37.[address] [facility] [address] [id number], [place] 9877333[address] Dec, [facility] [address] [id number], [place] 023689476 Dec, Dyshidrotic eczema L30.[address] [facility] [address] [id number], [place] [address] Nov, [facility] [address] [id number], [place] 575[address]507 Nov, Unexplained endometrial cells on cervical Pap smear R87.618 and Maida-menopausal N95.[address] [facility] [address] [id number], [place] 055617894 Oct, Well woman exam with routine gynecological exam Z01.419 ; Urinary incontinence, unspecified type R32 ; Breast cancer screening Z12.39 ; Morbid obesity, unspecified obesity type E66.01 and Maida-menopausal N95.[address] [facility] [address] [id number], [place] 844947691 Sep, Right lateral abdominal pain R10.9 [facility] CRISTOPHER [address] [id number][place] [address]489[address] Aug, Fatigue, unspecified type R53.[address] [facility] [address] [id number], [place] 0795565[address] Aug, [facility] [address] [id number], [place] 379015524 Jul, Essential (primary) hypertension I10 and Right upper quadrant pain R10.11 [facility] [address] [id number], [place] 782407412 Jul, [facility] [address] [id number], [place] 821785776 Jul, Acute pain of right knee M25.561 ; Slow transit constipation K59.01 and Fatty liver K76.0 [facility] [address] [id number], [place] 178670141 May, [facility] [address] [id number], [place] [id number] Apr, Dental examination Z01.20 [facility] [address] [id number], [place] 343061455 Apr, Encounter for dental examination Z01.20 and Dental caries, unspecified K02.9 [facility] [address] [id number], [place] 957715691 Mar, Encounter for dental examination Z01.20 [facility] [address] [id number], [place] 514324331 Feb, Encounter for dental examination Z01.20 [facility] [address] [id number], [place] [id number] Jan, [facility] [address] [id number], [place] 163439735 Jan, Encounter for dental examination Z01.20 [facility] [address] [id number], [place] 302529307 Jan, Right upper quadrant abdominal pain R10.11 ; Fatty liver K76.0 ; Constipation, chronic K59.00 and Morbid obesity due to excess calories E66.[address] [facility] [address] [id number], [place] 989625602 Dec, [facility] [address] [id number], [place] [id number] Dec, Fatty liver K76.0 ; Slow transit constipation K59.01 and Hip pain , left M25.552 [facility] [address] [id number], [place] [id number] Nov, [facility] [address] [id number], [place] [id number] Nov, Essential (primary) hypertension I10 [facility] [address] [place] [address] AVE [id number], [place] [id number] Oct, [facility] [address] [id number], [place] 049305980 Oct, Abdominal pain, right upper quadrant 789.01 ; Constipation 564.00 and Hypertension 401.9 [facility] [address] [place] [address] AVE [id number] [place], [place] [id number] Sep, Right upper quadrant abdominal pain 789.01 IMMUNIZATIONS No Known Immunizations SOCIAL HISTORY Never Assessed REASON FOR VISIT Test results PLAN OF CARE VITAL SIGNS MEDICATIONS Unknown Medications RESULTS No Results PROCEDURES No Known procedures [...]
--- OUTSIDE RECORDS SUMMARY | 2018-06-10 17:06 | XMS REPORT ---
Author Author DIANN OROZCO [facility] Address [address] [place] [address] Care Team Providers Care Adding Machine Operator Name Role Phone DIANN OROZCO Unavailable PROBLEMS Type Condition ICD9-CM Code ZHB48-RF Code Onset Dates Condition Status SNOMED Code Problem Anxiety F41.9 Active 86732751 Problem Colon cancer screening Z12.11 Active 432588491 Problem Metabolic syndrome X E88.81 Active 232814345 Problem Primary osteoarthritis of left hip M16.12 Active 589185389 Problem Slow transit constipation K59.01 Active 32531721 Problem BMI 45.0-49.9, adult Z68.42 Active 917515393 Problem Essential (primary) hypertension I10 Active 40943792 Problem Breast cancer screening Z12.31 Active 311757626 Problem Gynecologic exam normal Z01.419 Active 459294250 Problem Influenza A J10.1 Active 106078920 Problem External hemorrhoid, bleeding K64.4 Active 84649859 Problem Right upper quadrant abdominal pain R10.11 Active 587962453 Problem Constipation, chronic K59.00 Active 451112917 Problem Fatty liver K76.0 Active 264569650 Problem Hip pain, left M25.552 Active 83250942 Problem Maida-menopausal N95.1 Active 403388858069428 Problem Morbid obesity, unspecified obesity type E66.01 Active 499653809 Problem Right lateral abdominal pain R10.9 Active 606938259 Problem Vaginal candidiasis B37.3 Active 11481602 Problem Urinary incontinence, unspecified type R32 Active 430722749 Problem Lumbago with sciatica, left side M54.42 Active 012838779 ALLERGIES No Information ENCOUNTERS Encounter Location Date Diagnosis [facility] [address] [id number] [place] [id number] Dec, Dyshidrotic eczema L30.1 [facility] [address] [facility] [id number] [place] [address] Sep, Primary osteoarthritis of left hip M16.12 and Trochanteric bursitis, left hip M70.62 [facility] [address] [id number], [place] [id number] Sep, [facility] [address] [address] [id number], [place] 379554991 Aug, Hip pain, left M25.552 [facility] [address] [id number], [place] [id number] Jul, Hip pain, left M25.552 [facility] [place] [address] AVE [id number], [place] 891274135 Jul, Metabolic syndrome X E88.81 ; Hip pain, left M25.552 ; Morbid obesity, unspecified obesity type E66.01 and BMI 50.0-59.9, adult Z68.43 [facility] [address] [id number], [place] [id number] Apr, [facility] [address] [employer] [id number], [place] 412980[address] Apr, Lumbago with sciatica, left side M54.42 [facility] [employer] [facility] [address] [id number], [place] [id number] Apr, [facility] R[facility] [address] [place] [address] AVE [id number], [place] 718672535 Mar, Metabolic syndrome X E88.81 ; Anxiety F41.9 ; BMI 45.0-49.9, adult Z68.42 and Encounter for immunization Z23 [facility] [employer] [facility] [address] [id number], [place] 567[address]8880 Jan, Influenza A J10.1 ; BMI 45.0-49.9, adult Z68.42 and External hemorrhoid, bleeding K64.4 [facility] [address] [id number], [place] 769869208 Jan, Colon cancer screening Z12.11 [facility] [address] [id number], [place] [id number] Jan, Gynecologic exam normal Z01.419 ; Breast cancer screening Z12.31 ; Colon cancer screening Z12.11 and BMI 50.0-59.9, adult Z68.43 [facility] [address] [id number] [place] 0490[address] Jan, [facility] [address] [address] [id number] [place] [id number] Jan, [facility] [address] [address] [id number] [place] 2440[address]641 Nov, Lumbago with sciatica, left side M54.[address] [facility] [address] [id number], [place] 921402322 Nov, Lumbago with sciatica, left side M54.42 [facility] [address] [id number], [place] 595666635 Sep, Metabolic syndrome X E88.81 ; Anxiety F41.9 and Lumbago with sciatica, left side M54.42 [facility] [address] [id number], [place] 678657277 Sep, [facility] [address] [id number], [place] [id number] Sep, [facility] [address] [address] [id number], [place] 234157791 Sep, Lumbago with sciatica, left side M54.42 [facility] [address] [id number], [place] [id number] Aug, [facility] [address] [id number], [place] [id number] Aug, [facility] [address] [id number], [place] 205013699 Jul, Lumbago with sciatica, left side M54.[address] [facility] [address] [id number], [place] 393643666 Jul, Anxiety F41.9 [facility] [address] [id number], [place] 181725462 Jul, Lumbago with sciatica, left side M54.42 and Anxiety F41.9 [facility] [address] [id number], [place] 375730225 May, Lumbago with sciatica, left side M54.42 [facility] [address] [id number], [place] 943315710 Feb, Dermatitis L30.9 and Dysuria R30.[address] [facility] [address] [id number], [place] [id number] Jan, Vaginal candidiasis B37.3 [facility] [address] [facility] [address] [id number], [place] 329734250 Dec, [facility] [address] [address] [id number], [place] [id number] Dec, Dyshidrotic eczema L30.1 [facility] [address] [facility] [address] [id number], [place] [id number] Nov, [facility] [address] [facility] [address] [id number], [place] 813279066 Nov, Unexplained endometrial cells on cervical Pap smear R87.618 and Maida-menopausal N95.1 [facility] [address] [facility] [address] [id number], [place] [id number] Oct, Well woman exam with routine gynecological exam Z01.419 ; Urinary incontinence, unspecified type R32 ; Breast cancer screening Z12.39 ; Morbid obesity, unspecified obesity type E66.01 and Maida-menopausal N95.1 [facility] [address] [id number], [place] 817765024 Sep, Right lateral abdominal pain R10.9 [facility] [address] [id number] [place] [address] Aug, Fatigue, unspecified type R53.83 [facility] [address] [id number], [place] 427092711 Aug, [facility] [address] [id number], [place] 448880423 Jul, Essential (primary) hypertension I10 and Right upper quadrant pain R10.11 [facility] [address] [id number], [place] 611546172 Jul, [facility] [address] [id number], [place] 302788194 Jul, Acute pain of right knee M25.561 ; Slow transit constipation K59.01 and Fatty liver K76.0 [facility] [address] [id number], [place] [id number] May, [facility] [address] [facility] [id number] [place] 146407032 Apr, Dental examination Z01.20 [facility] [address] [id number], [place] 897534837 Apr, Encounter for dental examination Z01.20 and Dental caries, unspecified K02.9 [facility] [address] [id number], [place] 786495624 Mar, Encounter for dental examination Z01.20 [facility] [address] [id number], [place] [id number] Feb, Encounter for dental examination Z01.20 [facility] [address] [id number], [place] [id number] Jan, [facility] [address] [id number], [place] 375377672 Jan, Encounter for dental examination Z01.20 [facility] [address] [id number], [place] [id number] Jan, Right upper quadrant abdominal pain R10.11 ; Fatty liver K76.0 ; Constipation, chronic K59.00 and Morbid obesity due to excess calories E66.01 [facility] [address] [id number] [place] [address]15[address] Dec, [facility] [address] [id number], [place] [id number] Dec, Fatty liver K76.0 ; Slow transit constipation K59.01 and Hip pain , left M25.552 [facility] [address] [id number], [place] [address]2091 Nov, [facility] [address] [id number], [place] [id number] Nov, Essential (primary) hypertension I10 [facility] [address]egas[address] [address] AVE [id number], [place] [id number] Oct, [facility] Sam[facility]go [facility] [id number], [place] 842147414 Oct, Abdominal pain, right upper quadrant 789.01 ; Constipation 564.00 and Hypertension 401.9 [facility] [address]egas[address] [address] AVE [id number], [place] 512654467 Sep, Right upper quadrant abdominal pain 789.01 IMMUNIZATIONS No Known Immunizations SOCIAL HISTORY Never Assessed REASON FOR VISIT med refill PLAN OF CARE VITAL SIGNS MEDICATIONS Medication Instructions Dosage Frequency Start Date End Date Duration Status Triamcinolone Acetonide 0.1 % Externally Twice a day 1 application to affected area 12h Dec, 10 days Active RESULTS No Results PROCEDURES No Known [...]
--- OUTSIDE RECORDS SUMMARY | 2018-06-10 17:06 | XMS REPORT ---
Author Author DIANN OROZCO [facility] Address [address] [place] [address] Care Team Providers Care Instructional Supervisor Name Role Phone DIANN OROZCO Unavailable PROBLEMS Type Condition ICD9-CM Code EAW38-OJ Code Onset Dates Condition Status SNOMED Code Problem Anxiety F41.9 Active 16743449 Problem Colon cancer screening Z12.11 Active 482575921 Problem Metabolic syndrome X E88.81 Active 216710125 Problem Primary osteoarthritis of left hip M16.12 Active 387232356 Problem Slow transit constipation K59.01 Active 27227460 Problem BMI 45.0-49.9, adult Z68.42 Active 922805185 Problem Essential (primary) hypertension I10 Active 64775971 Problem Breast cancer screening Z12.31 Active 656191777 Problem Gynecologic exam normal Z01.419 Active 045151705 Problem Influenza A J10.1 Active 143207845 Problem External hemorrhoid, bleeding K64.4 Active 17194699 Problem Right upper quadrant abdominal pain R10.11 Active 457170527 Problem Constipation, chronic K59.00 Active 391378798 Problem Fatty liver K76.0 Active 096581190 Problem Hip pain, left M25.552 Active 99545235 Problem Maida-menopausal N95.1 Active 676842781184580 Problem Morbid obesity, unspecified obesity type E66.01 Active 199331616 Problem Right lateral abdominal pain R10.9 Active 573628971 Problem Vaginal candidiasis B37.3 Active 00327016 Problem Urinary incontinence, unspecified type R32 Active 508402522 Problem Lumbago with sciatica, left side M54.42 Active 853513938 ALLERGIES No Information ENCOUNTERS Encounter Location Date Diagnosis [facility] [address] [id number] [place] [id number] Dec, [address] [id number] [place] [id number] Dec, Dyshidrotic eczema L30.1 [facility] [address] [facility] [id number] [place] [address] Sep, Primary osteoarthritis of left hip M16.12 and Trochanteric bursitis, left hip M70.62 [facility] [address] [id number], [place] [id number] Sep, [facility] [address] [id number], [place] [address] Aug, Hip pain, left M25.552 [facility] [address] [id number], [place] [id number] Jul, Hip pain, left M25.552 [facility] [address] [employer] [address] [id number], [place] [id number] Jul, Metabolic syndrome X E88.81 ; Hip pain, left M25.552 ; Morbid obesity, unspecified obesity type E66.01 and BMI 50.0-59.9, adult Z68.43 [facility] [address] [id number], [place] [id number] Apr, [facility] [address] [employer] [address] [id number], [place] [id number] Apr, Lumbago with sciatica, left side M54.42 [facility] [address] [place] [address] AVE [id number], [place] [id number] Apr, [facility] [address] [employer] [address] [id number], [place] [id number] Mar, Metabolic syndrome X E88.81 ; Anxiety F41.9 ; BMI 45.0-49.9, adult Z68.42 and Encounter for immunization Z23 [facility] [address] [employer] [address] [id number], [place] [address] Jan, Influenza A J10.1 ; BMI 45.0-49.9, adult Z68.42 and External hemorrhoid, bleeding K64.4 [facility] [address] [employer] [address] [id number], [place] [id number] Jan, Colon cancer screening Z12.[address] [facility] [address] [id number], [place] [address]65[address]53[address] Jan, Gynecologic exam normal Z01.419 ; Breast cancer screening Z12.31 ; Colon cancer screening Z12.11 and BMI 50.0-59.9, adult Z68.[address] [facility] [address] [id number], [place] [id number] Jan, [facility] [address] [id number], [place] [address] Jan, [facility] [address] [id number], [place] [id number] Nov, Lumbago with sciatica, left side M54.[address] [facility] [address] [id number], [place] [id number] Nov, Lumbago with sciatica, left side M54.[address] [facility] [address] [id number], [place] 675947577 Sep, Metabolic syndrome X E88.81 ; Anxiety F41.9 and Lumbago with sciatica, left side M54.[address] [facility] [address] [id number], [place] [address] Sep, [facility] [address] [id number], [place] [id number] Sep, [facility] [address] [id number], [place] [address]563718[address] Sep, Lumbago with sciatica, left side M54.[address] [facility] [address] [id number], [place] [id number] Aug, [facility] [address] [id number], [place] 360457637 Aug, [facility] [address] [id number], [place] [address] Jul, Lumbago with sciatica, left side M54.[address] [facility] [address] [id number] [place] [address] Jul, Anxiety F41.[address] [facility] [address] [id number], [place] [id number] Jul, Lumbago with sciatica, left side M54.42 and Anxiety F41.9 [facility] [address] [id number], [place] [address]57[address] May, Lumbago with sciatica, left side M54.[address] [facility] [address] [id number], [place] [address]684[address] Feb, Dermatitis L30.9 and Dysuria R30.[address] [facility] [address] [id number], [place] [address] Jan, Vaginal candidiasis B37.[address] [facility] [address] [id number], [place] [address] Dec, [facility] [address] [id number], [place] [address] Dec, Dyshidrotic eczema L30.1 [facility] [address] [id number], [place] [id number] Nov, [facility] [address] [facility] [address] [id number], [place] [address] Nov, Unexplained endometrial cells on cervical Pap smear R87.618 and Maida-menopausal N95.1 [facility] [address] [id number], [place] [id number] Oct, Well woman exam with routine gynecological exam Z01.419 ; Urinary incontinence, unspecified type R32 ; Breast cancer screening Z12.39 ; Morbid obesity, unspecified obesity type E66.01 and Maida-menopausal N95.[address] [facility] [address] [id number], [place] [address] Sep, Right lateral abdominal pain R10.9 [facility] [address] [id number], [place] [id number] Aug, Fatigue, unspecified type R53.83 [facility] [address] [id number], [place] [id number] Aug, [facility] [address] [id number], [place] [address] Jul, Essential (primary) hypertension I10 and Right upper quadrant pain R10.11 [facility] [address] [id number], [place] [id number] Jul, [facility] [address] [id number], [place] [address] Jul, Acute pain of right knee M25.561 ; Slow transit constipation K59.01 and Fatty liver K76.0 [facility] [address] [id number], [place] [id number] May, [facility] [address] [facility] [id number], [place] [id number] Apr, Dental examination Z01.20 [facility] [address] [id number], [place] [id number] Apr, Encounter for dental examination Z01.20 and Dental caries, unspecified K02.9 [facility] [address] [id number], [place] [id number] Mar, Encounter for dental examination Z01.20 [facility] [address] [id number], [place] [id number] Feb, Encounter for dental examination Z01.20 [facility] [address] [id number], [place] 720[address] Jan, [facility] [address] [id number], [place] [id number] Jan, Encounter for dental examination Z01.20 [facility] [address] [id number], [place] [address]34[address] Jan, Right upper quadrant abdominal pain R10.11 ; Fatty liver K76.0 ; Constipation, chronic K59.00 and Morbid obesity due to excess calories E66.01 [facility] [address] [id number], [place] [address] Dec, [facility] [address] [id number], [place] [id number] Dec, Fatty liver K76.0 ; Slow transit constipation K59.01 and Hip pain , left M25.552 [facility] [address] [id number], [place] [id number] Nov, [facility] [address] [id number], [place] [id number] Nov, Essential (primary) hypertension I10 [facility] [address] [place] [address] AVE [id number], [place] [id number] Oct, [facility] [address] [place] [address] AVE [id number], [place] [id number] Oct, Abdominal pain, right upper quadrant 789.01 ; Constipation 564.00 and Hypertension 401.9 [facility] [address] [place] [address] AVE [id number], [place] [id number] Sep, Right upper quadrant abdominal pain 789.01 IMMUNIZATIONS No Known Immunizations SOCIAL HISTORY Never Assessed REASON FOR VISIT pals arrived PLAN OF CARE VITAL SIGNS MEDICATIONS Unknown [...]
--- OUTSIDE RECORDS SUMMARY | 2018-06-10 17:06 | XMS REPORT ---
Author Author DIANN OROZCO [facility] Address [address] [place] [address] Care Team Providers Care Yeast Maker Name Role Phone DIANN OROZCO Unavailable PROBLEMS Type Condition ICD9-CM Code TPE38-KM Code Onset Dates Condition Status SNOMED Code Problem Anxiety F41.9 Active 47672665 Problem Colon cancer screening Z12.11 Active 287684942 Problem Metabolic syndrome X E88.81 Active 619786407 Problem Primary osteoarthritis of left hip M16.12 Active 610145539 Problem Slow transit constipation K59.01 Active 24883897 Problem BMI 45.0-49.9, adult Z68.42 Active 650199753 Problem Essential (primary) hypertension I10 Active 86264354 Problem Breast cancer screening Z12.31 Active 669596028 Problem Gynecologic exam normal Z01.419 Active 993991579 Problem Influenza A J10.1 Active 238173779 Problem External hemorrhoid, bleeding K64.4 Active 10406384 Problem Right upper quadrant abdominal pain R10.11 Active 556960222 Problem Constipation, chronic K59.00 Active 732615031 Problem Fatty liver K76.0 Active 821125793 Problem Hip pain, left M25.552 Active 57079706 Problem Maida-menopausal N95.1 Active 438619052371413 Problem Morbid obesity, unspecified obesity type E66.01 Active 705955497 Problem Right lateral abdominal pain R10.9 Active 588049318 Problem Vaginal candidiasis B37.3 Active 34186333 Problem Urinary incontinence, unspecified type R32 Active 069279209 Problem Lumbago with sciatica, left side M54.42 Active 453460193 ALLERGIES No Information ENCOUNTERS Encounter Location Date Diagnosis [facility] [address] [facility] [id number] [place] [address] Sep, Primary osteoarthritis of left hip M16.12 and Trochanteric bursitis, left hip M70.62 [facility] [address] [id number], [place] [id number] Sep, [facility] [address] [id number], [place] [id number] Aug, Hip pain, left M25.[address] [id number], [place] [id number] Jul, Hip pain, left M25.552 [facility] [address] [place] [address] AVE [id number], [place] [id number] Jul, Metabolic syndrome X E88.81 ; Hip pain, left M25.552 ; Morbid obesity, unspecified obesity type E66.01 and BMI 50.0-59.9, adult Z68.[address] [id number], [place] [id number] Apr, [facility] [address] [place] [address] AVE [id number], [place] [id number] Apr, Lumbago with sciatica, left side M54.42 [facility] [address] [place] [address] AVE [id number], [place] [id number] Apr, [facility] [address] [place] [address] AVE [id number], [place] [id number] Mar, Metabolic syndrome X E88.81 ; Anxiety F41.9 ; BMI 45.0-49.9, adult Z68.42 and Encounter for immunization Z23 [facility] [address] [place] [address] AVE [id number], [place] [id number] Jan, Influenza A J10.1 ; BMI 45.0-49.9, adult Z68.42 and External hemorrhoid, bleeding K64.4 [facility] [address] [place] [address] AVE [id number], [place] [id number] Jan, Colon cancer screening Z12.11 [facility] [employer] [place] [address] A[address] [id number], [place] [id number] Jan, Gynecologic exam normal Z01.419 ; Breast cancer screening Z12.31 ; Colon cancer screening Z12.11 and BMI 50.0-59.9, adult Z68.[address] [facility] [address] [id number] [place] [id number] Jan, [facility] [address] [id number] [facility] [place] [id number] Jan, [facility] [address] [id number] [place] [id number] Nov, Lumbago with sciatica, left side M54.[address] [facility] [address] [id number] [place] [address] Nov, Lumbago with sciatica, left side M54.[address] [facility] [address] [id number] [facility] [place] [address] Sep, Metabolic syndrome X E88.81 ; Anxiety F41.9 and Lumbago with sciatica, left side M54.42 [facility] [address] [id number] [facility] [id number] Sep, [facility] [address] [id number] [facility] [id number] Sep, [facility] [address] [id number] [id number] Sep, Lumbago with sciatica, left side M54.42 [facility] [address] [id number] [place] [id number] Aug, [facility] [address] [id number] [place] [id number] Aug, [facility] [address] [id number] [place] [address] Jul, Lumbago with sciatica, left side M54.[address] [facility] [address] [id number] [place] [address] Jul, Anxiety F41.9 [facility] [address] [id number] [place] [address] Jul, Lumbago with sciatica, left side M54.42 and Anxiety F41.9 [facility] [address] [id number], [place] [id number] May, Lumbago with sciatica, left side M54.[address] [facility] [address] [id number], [place] [address]40696162 Feb, Dermatitis L30.9 and Dysuria R30.[address] [facility] [address] [id number], [place] 084438391 Jan, Vaginal candidiasis B37.3 [facility] [address] [id number], [place] [id number] Dec, [facility] [address] [id number], [place] 696752599 Dec, Dyshidrotic eczema L30.[address] [facility] [address] [id number], [place] 485584482 Nov, [facility] [address] [id number], [place] 976278366 Nov, Unexplained endometrial cells on cervical Pap smear R87.618 and Maida-menopausal N95.1 [facility] [address] [id number], [place] 6658[address] Oct, Well woman exam with routine gynecological exam Z01.419 ; Urinary incontinence, unspecified type R32 ; Breast cancer screening Z12.39 ; Morbid obesity, unspecified obesity type E66.01 and Maida-menopausal N95.1 [facility] [address] [id number], [place] 46666[address] Sep, Right lateral abdominal pain R10.9 [facility] [address] [id number], [place] [id number] Aug, Fatigue, unspecified type R53.83 [facility] [address] [id number], [place] 108088276 Aug, [facility] [address] [id number], [place] [id number] Jul, Essential (primary) hypertension I10 and Right upper quadrant pain R10.11 [facility] [address] [id number], [place] [id number] Jul, [facility] [address] [id number], [place] 005341068 Jul, Acute pain of right knee M25.561 ; Slow transit constipation K59.01 and Fatty liver K76.0 [facility] [address] [id number], [place] [id number] May, [facility] [address] [id number], [place] [address] Apr, Dental examination Z01.20 [facility] [address] [id number], [place] [id number] Apr, Encounter for dental examination Z01.20 and Dental caries, unspecified K02.9 [facility] [address] [id number], [place] [id number] Mar, Encounter for dental examination Z01.20 [facility] [address] [id number], [place] [id number] Feb, Encounter for dental examination Z01.20 [facility] [address] [id number], [place] [id number] Jan, [facility] [address] [id number], [place] [id number] Jan, Encounter for dental examination Z01.20 [facility] [address] [id number], [place] 478238218 Jan, Right upper quadrant abdominal pain R10.11 ; Fatty liver K76.0 ; Constipation, chronic K59.00 and Morbid obesity due to excess calories E66.01 [facility] [address] [id number], [place] [id number] Dec, [facility] [address] [id number], [place] [id number] Dec, Fatty liver K76.0 ; Slow transit constipation K59.01 and Hip pain , left M25.552 [facility] [address] [id number], [place] 695[address] Nov, [facility] [address] [id number], [place] 844[address]13[address] Nov, Essential (primary) hypertension I10 [facility] [address] [id number], [place] [id number] Oct, [facility] [address] [id number], [place] [id number] Oct, Abdominal pain, right upper quadrant 789.01 ; Constipation 564.00 and Hypertension 401.9 [facility] [address] [place] [address] A[address] [id number] [place] [id number] Sep, Right upper quadrant abdominal pain 789.01 IMMUNIZATIONS No Known Immunizations SOCIAL HISTORY Never Assessed REASON FOR VISIT pals celebrex PLAN OF CARE VITAL SIGNS MEDICATIONS Unknown [...]
--- OUTSIDE RECORDS SUMMARY | 2018-06-10 17:07 | XMS REPORT ---
Author Author DIANN OROZCO Organization [facility]RODRIGUEZ Address [address] [place] [address] Care Team Providers Care Digital Media Planner Name Role Phone DIANN OROZCO Unavailable PROBLEMS Type Condition ICD9-CM Code PRB64-OV Code Onset Dates Condition Status SNOMED Code Problem Lumbago with sciatica, left side M54.42 Active 112638740 Problem Metabolic syndrome X E88.81 Active 289056503 Problem Anxiety F41.9 Active 87862679 Problem BMI 45.0-49.9, adult Z68.42 Active 880032666 Problem Essential (primary) hypertension I10 Active 66742087 Problem Influenza A J10.1 Active 765140606 Problem Gynecologic exam normal Z01.419 Active 098600253 Problem Colon cancer screening Z12.11 Active 446741173 Problem External hemorrhoid, bleeding K64.4 Active 81112277 Problem Breast cancer screening Z12.31 Active 743820548 Problem Hip pain, left M25.552 Active 28468806 Problem Right upper quadrant abdominal pain R10.11 Active 846466504 Problem Slow transit constipation K59.01 Active 14256343 Problem Fatty liver K76.0 Active 422403403 Problem Maida-menopausal N95.1 Active 297547106181051 Problem Urinary incontinence, unspecified type R32 Active 857014300 Problem Constipation, chronic K59.00 Active 342834624 Problem Morbid obesity, unspecified obesity type E66.01 Active 093469096 Problem Right lateral abdominal pain R10.9 Active 572766546 Problem Vaginal candidiasis B37.3 Active 80357454 ALLERGIES No Information ENCOUNTERS Encounter Location Date Diagnosis [facility] [address] [address] [id number] [place] [id number] Apr, [facility] [address] [id number] [place], [place] [id number] Apr, Lumbago with sciatica, left side M54.[address] [facility] [address] [id number], [place] [id number] Apr, [facility] [address] [place] [address] AVE [id number], [place] [id number] Mar, Metabolic syndrome X E88.81 ; Anxiety F41.9 ; BMI 45.0-49.9, adult Z68.42 and Encounter for immunization Z23 [facility] [address] [place] [address] AVE [id number], [place] [id number] Jan, Influenza A J10.1 ; BMI 45.0-49.9, adult Z68.42 and External hemorrhoid, bleeding K64.4 [facility] [address] [id number], [place] [id number] Jan, Colon cancer screening Z12.11 [facility] [address] [place] [address] AVE [id number], [place] [id number] Jan, Gynecologic exam normal Z01.419 ; Breast cancer screening Z12.31 ; Colon cancer screening Z12.11 and BMI 50.0-59.9, adult Z68.43 [facility] [address] [facility] [address] [id number], [place] [id number] Jan, [facility] [address] [place] [address] A[address] [id number], [place] [id number] Jan, [facility] [address] [place] [address] AVE [id number], [place] [id number] Nov, Lumbago with sciatica, left side M54.42 [facility] [address] [id number], [place] [id number] Nov, Lumbago with sciatica, left side M54.42 [facility] [address] [id number], [place] [address]86[address] Sep, Metabolic syndrome X E88.81 ; Anxiety F41.9 and Lumbago with sciatica, left side M54.42 [facility] [address] [id number], [place] [id number] Sep, [facility] [address] [id number] [place] [id number] Sep, [facility] [address] [id number] [place] [id number] Sep, Lumbago with sciatica, left side M54.[address] [facility] [address] [id number] [place] [id number] Aug, [facility] [address] [id number] [place] [id number] Aug, [facility] [address] [id number] [place] [id number] Jul, Lumbago with sciatica, left side M54.[address] [facility] [address] [id number] [place] [id number] Jul, Anxiety F41.9 [facility] [address] [id number] [place] [id number] Jul, Lumbago with sciatica, left side M54.42 and Anxiety F41.9 [facility] [address] [id number] HOSPITAL, [place] [id number] May, Lumbago with sciatica, left side M54.[address] [facility] [address] [id number] [facility]OSPITAL, [place] [id number] Feb, Dermatitis L30.9 and Dysuria R30.[address] [facility] [address] [id number], [place] [id number] Jan, Vaginal candidiasis B37.[address] [facility] [address] [id number] [place] [id number] Dec, [facility] [address] [id number] HOSPITAL, [place] [id number] Dec, Dyshidrotic eczema L30.[address] [facility] [address] [id number] [place] [address] Nov, [facility] [address] [id number], [place] [address] 13 Nov, 2015 Unexplained endometrial cells on cervical Pap smear R87.618 and Maida-menopausal N95.1 [facility] [address] [id number], [place] [id number] 28 Oct, 2015 Well woman exam with routine gynecological exam Z01.419 ; Urinary incontinence, unspecified type R32 ; Breast cancer screening Z12.39 ; Morbid obesity, unspecified obesity type E66.01 and Maida-menopausal N95.1 [facility] [address] [id number], [place] [address] Sep, Right lateral abdominal pain R10.9 [facility] CRISTOPHER [address] [id number], [place] [address] Aug, Fatigue, unspecified type R53.83 [facility] [address] [id number], [place] [id number] Aug, [facility] [address] [id number], [place] [address] Jul, Essential (primary) hypertension I10 and Right upper quadrant pain R10.11 [facility] [address] [id number], [place] [id number] Jul, [facility] [address] [id number], [place] [id number] Jul, Acute pain of right knee M25.561 ; Slow transit constipation K59.01 and Fatty liver K76.0 [facility] [address] [id number], [place] [id number] May, [facility] [address] [id number], [place] [id number] Apr, Dental examination Z01.20 [facility] [address] [id number], [place] [id number] 03 Apr, 2015 Encounter for dental examination Z01.20 and Dental caries, unspecified K02.9 [facility] [address] [id number], [place] [id number] Mar, Encounter for dental examination Z01.20 [facility] [address] [id number], [place] [id number] Feb, Encounter for dental examination Z01.[address] [facility] [address] [id number], [place] [id number] Jan, [facility] [address] [id number], [place] [id number] Jan, Encounter for dental examination Z01.20 [facility] [address] [id number], [place] [id number] Jan, Right upper quadrant abdominal pain R10.11 ; Fatty liver K76.0 ; Constipation, chronic K59.00 and Morbid obesity due to excess calories E66.01 [facility] [address] [id number], [place] [id number] Dec, [facility] [address] [address] [id number], [place] [address]26[address] Dec, Fatty liver K76.0 ; Slow transit constipation K59.01 and Hip pain , left M25.552 [facility] [address] [facility] [address] [id number], [place] [address] Nov, [facility] [address] [id number], [place] [id number] Nov, Essential (primary) hypertension I10 [facility] [address] [place] [address] AVE [id number], [place] [id number] Oct, [facility] [address] [id number], [place] [id number] Oct, Abdominal pain, right upper quadrant 789.01 ; Constipation 564.00 and Hypertension 401.9 [facility] R[facility] [address] [place] [address] AVE [id number], [place] 15068[address]70 Sep, Right upper quadrant abdominal pain 789.01 IMMUNIZATIONS No Known Immunizations SOCIAL HISTORY Never Assessed REASON FOR VISIT Baclofen refill PLAN OF CARE VITAL SIGNS MEDICATIONS Medication Instructions Dosage Frequency Start Date End Date Duration Status Baclofen 20 MG Orally every 8 hrs 1/2 tablet with food or milk as needed 8h 20 May, 2016 Active RESULTS No Results PROCEDURES No Known [...]
--- OUTSIDE RECORDS SUMMARY | 2018-06-10 17:07 | XMS REPORT ---
Author Author DIANN OROZCO Organization [employer] Address Unknown Phone Unavailable Care Team Providers Care Elderly Companion Name Role Phone DIANN OROZCO CP Unavailable Allergies No Known Allergies Problems Problem Type Condition Code Onset Dates Condition Status Problem Slow transit constipation K59.01 Active Problem Hip pain, left M25.552 Active Problem Fatty liver K76.0 Active Problem Essential (primary) hypertension I10 Active Medications No Known Medications Results No Known Results Summary Purpose [employer] Submission
--- OUTSIDE RECORDS SUMMARY | 2018-06-10 17:07 | XMS REPORT ---
Author Author DIANN OROZCO [facility] Address [address] [place] [address] Care Team Providers Care Blue Print Control Clerk Name Role Phone DIANN OROZCO Unavailable PROBLEMS Type Condition ICD9-CM Code QTX25-HC Code Onset Dates Condition Status SNOMED Code Problem Lumbago with sciatica, left side M54.42 Active 744234842 Problem Metabolic syndrome X E88.81 Active 142284784 Problem Anxiety F41.9 Active 59601272 Problem BMI 45.0-49.9, adult Z68.42 Active 013740253 Problem Essential (primary) hypertension I10 Active 64448456 Problem Influenza A J10.1 Active 818261935 Problem Gynecologic exam normal Z01.419 Active 234860399 Problem Colon cancer screening Z12.11 Active 272047246 Problem External hemorrhoid, bleeding K64.4 Active 86583696 Problem Breast cancer screening Z12.31 Active 729263125 Problem Hip pain, left M25.552 Active 04151941 Problem Right upper quadrant abdominal pain R10.11 Active 649041160 Problem Slow transit constipation K59.01 Active 97938797 Problem Fatty liver K76.0 Active 259878067 Problem Maida-menopausal N95.1 Active 078558084393742 Problem Urinary incontinence, unspecified type R32 Active 977929029 Problem Constipation, chronic K59.00 Active 444793065 Problem Morbid obesity, unspecified obesity type E66.01 Active 210624354 Problem Right lateral abdominal pain R10.9 Active 468706169 Problem Vaginal candidiasis B37.3 Active 71951513 ALLERGIES No Information ENCOUNTERS Encounter Location Date Diagnosis [facility] [address] [facility] [id number] [place] [address] Sep, [facility] [address] [facility] [address] [id number] [place] [id number] Aug, Hip pain, left M25.552 [facility] [address] [id number] [place] [id number] Jul, Hip pain, left M25.552 [facility] [address] [id number] [place] [address] Jul, Metabolic syndrome X E88.81 ; Hip pain, left M25.552 ; Morbid obesity, unspecified obesity type E66.01 and BMI 50.0-59.9, adult Z68.43 [facility] [address] [id number] [place] [id number] Apr, [facility] [address] [id number] [place] [id number] Apr, Lumbago with sciatica, left side M54.42 [facility] [address] [place] [address] AVE [id number] [place] [id number] Apr, [facility] [employer] [place] [address] AVE [id number] [place] 16087[address] Mar, Metabolic syndrome X E88.81 ; Anxiety F41.9 ; BMI 45.0-49.9, adult Z68.42 and Encounter for immunization Z23 [facility] [employer] [place] [address] AVE [id number] [place] [id number] Jan, Influenza A J10.1 ; BMI 45.0-49.9, adult Z68.42 and External hemorrhoid, bleeding K64.4 [facility] [employer] [place] [address] AVE [id number] [place] [id number] Jan, Colon cancer screening Z12.11 [facility] [employer] [place] [address] AVE [id number] [place] [id number] Jan, Gynecologic exam normal Z01.419 ; Breast cancer screening Z12.31 ; Colon cancer screening Z12.11 and BMI 50.0-59.9, adult Z68.43 [facility] [address] [employer])[address] [id number] [place] [id number] Jan, [facility] [address] [employer]) A[address] [id number] [place] [id number] Jan, [facility] [address] [id number] [place] [id number] Nov, Lumbago with sciatica, left side M54.[address] [facility] [address] [id number] [place] 919[address] Nov, Lumbago with sciatica, left side M54.[address] [facility] [address] [id number] [place] [id number] Sep, Metabolic syndrome X E88.81 ; Anxiety F41.9 and Lumbago with sciatica, left side M54.[address] [facility] [address] [id number] [place] [address] Sep, [facility] [address] [id number] [place] 880569226 Sep, [facility] [address] [id number] [place] [id number] Sep, Lumbago with sciatica, left side M54.[address] [facility] [address] [id number] [place] [id number] Aug, [facility] [address] [id number] [place] [id number] Aug, [facility] [address] [id number] [place] [id number] Jul, Lumbago with sciatica, left side M54.[address] [facility] [address] [id number] [place] [address] Jul, Anxiety F41.9 [facility] [address] [id number] [place] [id number] Jul, Lumbago with sciatica, left side M54.42 and Anxiety F41.9 [facility] [address] [id number] [place] [id number] May, Lumbago with sciatica, left side M54.[address] [facility] [address] [id number] [place] [address]80543461 Feb, Dermatitis L30.9 and Dysuria R30.0 [facility] [address] [id number] [place] 439383471 Jan, Vaginal candidiasis B37.3 [facility] [address] [place] [address] AVE [id number] [place] [id number] Dec, [facility] [address] [id number] [place] [id number] Dec, Dyshidrotic eczema L30.1 [facility] [address] [place] [address] AVE [id number] [place] [id number] Nov, [facility] R[address]Z [address] [place] [address] AVE [id number] [place] 038294819 Nov, Unexplained endometrial cells on cervical Pap smear R87.618 and Maida-menopausal N95.1 [facility] [address] [place] [address] AVE [id number] [place] [id number] Oct, Well woman exam with routine gynecological exam Z01.419 ; Urinary incontinence, unspecified type R32 ; Breast cancer screening Z12.39 ; Morbid obesity, unspecified obesity type E66.01 and Maida-menopausal N95.1 [facility] R[address] [place] [address] AV [id number] [place] 695[address]3359 Sep, Right lateral abdominal pain R10.9 [facility] [address] [id number] ANGELES, [place] 538[address] Aug, Fatigue, unspecified type R53.83 [facility] [address] [id number] [place] [id number] Aug, [facility] [address] [facility] [address] [id number] [place] [id number] Jul, Essential (primary) hypertension I10 and Right upper quadrant pain R10.11 [facility] [address] [id number] [place] [id number] Jul, [facility] [address] [id number] [place] 029152235 Jul, Acute pain of right knee M25.561 ; Slow transit constipation K59.01 and Fatty liver K76.0 [facility] [address] [id number] [place] [id number] May, [facility] [address] [facility] [id number] [place] [id number] Apr, Dental examination Z01.20 [facility] [address] [id number] [place] [id number] Apr, Encounter for dental examination Z01.20 and Dental caries, unspecified K02.9 [facility] [address] [id number] [place] [id number] Mar, Encounter for dental examination Z01.20 [facility] [address] [id number] [place] 855106449 Feb, Encounter for dental examination Z01.20 [facility] [address] [id number] [place] [id number] Jan, [facility] [address] [id number] [place] [id number] Jan, Encounter for dental examination Z01.20 [facility] [address] [id number] [place] 954[address]43[address] Jan, Right upper quadrant abdominal pain R10.11 ; Fatty liver K76.0 ; Constipation, chronic K59.00 and Morbid obesity due to excess calories E66.[address] [facility] [address] [id number] [place] 859[address]1440 Dec, [facility] [address] [id number] [place], [place] 515343807 Dec, Fatty liver K76.0 ; Slow transit constipation K59.01 and Hip pain , left M25.[address] [facility] [address] [id number] [place] [id number] Nov, [facility] [address] [id number] [place] [id number] Nov, Essential (primary) hypertension I10 [facility] [address] [facility] [address] [id number] [place] [id number] Oct, [facility] [facility] [address] [id number] [place] [address] Oct, Abdominal pain, right upper quadrant 789.01 ; Constipation 564.00 and Hypertension 401.9 [facility] [address] [id number] [place] [id number] Sep, Right upper quadrant abdominal pain 789.01 IMMUNIZATIONS No Known Immunizations SOCIAL HISTORY Never Assessed REASON FOR VISIT Medication refill request PLAN OF CARE VITAL SIGNS MEDICATIONS Medication Instructions Dosage Frequency Start Date End Date Duration Status Baclofen 10 mg Orally every 8 hrs as needed 1 tablet with food or milk May, Active RESULTS No Results PROCEDURES No [...]
--- OUTSIDE RECORDS SUMMARY | 2018-06-10 17:07 | XMS REPORT ---
Author Author PAM DIANN [facility] Address [address] [place] [address] Care Team Providers Care Sausage Mixer Name Role Phone DIANN OROZCO Unavailable PROBLEMS Type Condition ICD9-CM Code XSC07-SC Code Onset Dates Condition Status SNOMED Code Problem Anxiety F41.9 Active 85496216 Problem Colon cancer screening Z12.11 Active 886362931 Problem Metabolic syndrome X E88.81 Active 047353420 Problem Primary osteoarthritis of left hip M16.12 Active 245456965 Problem Slow transit constipation K59.01 Active 95354179 Problem BMI 45.0-49.9, adult Z68.42 Active 316881274 Problem Essential (primary) hypertension I10 Active 86844062 Problem Breast cancer screening Z12.31 Active 818441243 Problem Gynecologic exam normal Z01.419 Active 758146013 Problem Influenza A J10.1 Active 938250673 Problem External hemorrhoid, bleeding K64.4 Active 94565250 Problem Right upper quadrant abdominal pain R10.11 Active 503508650 Problem Constipation, chronic K59.00 Active 054719546 Problem Fatty liver K76.0 Active 024400329 Problem Hip pain, left M25.552 Active 09569177 Problem Maida-menopausal N95.1 Active 960731112406370 Problem Morbid obesity, unspecified obesity type E66.01 Active 540317225 Problem Right lateral abdominal pain R10.9 Active 685847991 Problem Vaginal candidiasis B37.3 Active 84094028 Problem Urinary incontinence, unspecified type R32 Active 031532868 Problem Lumbago with sciatica, left side M54.42 Active 094953684 ALLERGIES Substance Reaction Event Type Date Status Simvastatin fatigue Drug Allergy Jul, Active Lovastatin fatigue Drug Allergy Jul, Active ENCOUNTERS Encounter Location Date Diagnosis [facility] [address] [facility] [id number] [place] [address] Sep, Primary osteoarthritis of left hip M16.12 and Trochanteric bursitis, left hip M70.62 [facility] [address] [id number], [place] [address] Sep, [facility] [address] [id number], [place] [id number] Aug, Hip pain, left M25.552 [facility] [address] [place] [address] AVE [id number], [place] [id number] Jul, Hip pain, left M25.552 [facility] [address] [id number], [place] [address]7079[address] Jul, Metabolic syndrome X E88.81 ; Hip pain, left M25.552 ; Morbid obesity, unspecified obesity type E66.01 and BMI 50.0-59.9, adult Z68.43 [facility] [address] [place] [address] AVE [id number], [place] [id number] Apr, [facility] [address] [facility] A[address] [id number], [place] [id number] Apr, Lumbago with sciatica, left side M54.42 [facility] [address] [place] [address] AVE [id number], [place] [id number] Apr, [facility] [address] [place] [address] AVE [id number], [place] [id number] Mar, Metabolic syndrome X E88.81 ; Anxiety F41.9 ; BMI 45.0-49.9, adult Z68.42 and Encounter for immunization Z23 [facility] [address] [place] [address] AVE [id number], [place] [id number] Jan, Influenza A J10.1 ; BMI 45.0-49.9, adult Z68.42 and External hemorrhoid, bleeding K64.4 [facility] [address] [id number], [place] [id number] Jan, Colon cancer screening Z12.11 [facility] [address] [place] [address] AVE [id number], [place] 116016936 Jan, Gynecologic exam normal Z01.419 ; Breast cancer screening Z12.31 ; Colon cancer screening Z12.11 and BMI 50.0-59.9, adult Z68.[address] [facility] [address] [id number] [place] [address] Jan, [facility] [address] [id number] [place] [id number] Jan, [facility] [address] [id number] [place] [address]46[address] Nov, Lumbago with sciatica, left side M54.[address] [facility] [address] [id number] [place] 8989[address] Nov, Lumbago with sciatica, left side M54.[address] [facility] [address] [id number], [place] [id number] Sep, Metabolic syndrome X E88.81 ; Anxiety F41.9 and Lumbago with sciatica, left side M54.[address] [facility] [address] [id number], [place] [id number] Sep, [facility] [address] [id number], [place] [id number] Sep, [facility] [address] [id number], [place] [id number] Sep, Lumbago with sciatica, left side M54.42 [facility] [address] [id number], [place] [id number] Aug, [facility] [address] [id number] [place] 802807[address] Aug, [facility] [address] [id number], [place] 810962878 Jul, Lumbago with sciatica, left side M54.[address] [facility] [address] [id number], [place] 125201843 Jul, Anxiety F41.9 [facility] [address] [id number], [place] 309221977 Jul, Lumbago with sciatica, left side M54.42 and Anxiety F41.9 [facility] [address] [id number], [place] 503196275 May, Lumbago with sciatica, left side M54.[address] [facility] [address] [id number], [place] 956426785 Feb, Dermatitis L30.9 and Dysuria R30.[address] [facility] [address] [id number], [place] 926506741 Jan, Vaginal candidiasis B37.3 [facility] [address] [id number], [place] [address] Dec, [facility] [address] [id number], [place] 229878546 Dec, Dyshidrotic eczema L30.1 [facility] [address] [id number], [place] 401010113 Nov, [facility] [address] [address] [facility] [address] [id number], [place] 693[address] Nov, Unexplained endometrial cells on cervical Pap smear R87.618 and Maida-menopausal N95.1 [facility] [address] [facility] [address] [id number], [place] [id number] Oct, Well woman exam with routine gynecological exam Z01.419 ; Urinary incontinence, unspecified type R32 ; Breast cancer screening Z12.39 ; Morbid obesity, unspecified obesity type E66.01 and Maida-menopausal N95.1 [facility] [address] [id number], [place] [id number] Sep, Right lateral abdominal pain R10.9 [facility] CRISTOPHER [address] [id number], [place] [address]55969696 Aug, Fatigue, unspecified type R53.83 [facility] [address] [id number], [place] 355907741 Aug, [facility] [address] [id number], [place] 502506739 Jul, Essential (primary) hypertension I10 and Right upper quadrant pain R10.11 [facility] [address] [id number], [place] 920372324 Jul, [facility] [address] [place] [address] AVE [id number], [place] 022872892 Jul, Acute pain of right knee M25.561 ; Slow transit constipation K59.01 and Fatty liver K76.0 [facility] [address] [id number], [place] [id number] May, [facility] [address] [facility] [id number] [place] 53488[address] Apr, Dental examination Z01.20 [facility] [address] [id number], [place] 730581231 Apr, Encounter for dental examination Z01.20 and Dental caries, unspecified K02.9 [facility] [address] [id number], [place] 820484728 Mar, Encounter for dental examination Z01.20 [facility] [address] [id number], [place] [id number] Feb, Encounter for dental examination Z01.20 [facility] [address] [id number], [place] [id number] Jan, [facility] [address] [id number], [place] 343879314 Jan, Encounter for dental examination Z01.20 [facility] [address] [id number], [place] 189168968 Jan, Right upper quadrant abdominal pain R10.11 ; Fatty liver K76.0 ; Constipation, chronic K59.00 and Morbid obesity due to excess calories E66.01 [facility] [address] [id number], [place] [address]23204926 Dec, [facility] [id number], [place] 460366813 Dec, Fatty liver K76.0 ; Slow transit constipation K59.01 and Hip pain , left M25.552 [facility] [address] [id number], [place] [id number] Nov, [facility]goRODRIGUEZ[address]ISCOLL[address] [place] [address] AVE [id number], [place] [id number] Nov, Essential (primary) hypertension I10 [facility] [address] [place] [address] AVE [id number], [place] [id number] Oct, [facility] [address] [place] [address] AVE [id number], [place] 453209900 Oct, Abdominal pain, right upper quadrant 789.01 ; Constipation 564.00 and Hypertension 401.9 [facility] [address] [id number], [place] [id number] Sep, Right upper quadrant abdominal pain 789.01 IMMUNIZATIONS No Known Immunizations SOCIAL HISTORY Never Assessed REASON FOR VISIT Diabetes bferrisma PLAN OF CARE Activity Details Follow Up 6 Months Reason:metabolic syndrome VITAL SIGNS Height 65.25 in 2017-07-21 Weight 309.5 lbs 2017-07-21 Temperature 98.1 degrees Fahrenheit 2017-07-21 Heart Rate 76 bpm 2017-07-21 Respiratory Rate 16 2017-07-21 Oximetry 96 % 2017-07-21 BMI 51.10 kg/m2 2017-07-21 Blood pressure systolic 118 mmHg 2017-07-21 Blood pressure diastolic 76 mmHg 2017-07-21 MEDICATIONS Medication Instructions Dosage Frequency Start Date End Date Duration Status Triamcinolone Acetonide 0.1 % Externally Twice a day 1 application to affected area 12h Dec, 10 days Active Albuterol Sulfate (2.5 MG/3ML) 0.083% Inhalation every 6 hrs as needed 3 ml Aug, 30 days Active Celebrex 200 mg Orally Once a day for pain 1 capsule with food May, Active ProAir HFA 108 (90 Base) MCG/ACT Inhalation every 4 hrs 2 puffs as needed 4h Active BusPIRone HCl 10 mg Orally Twice a day 1 tablet 12h Jul, Active Baclofen 10 mg Orally every 8 hrs as needed 1 tablet with food or milk May, Active Xenical 120 MG Orally 3 times a day with meals 1 capsule with meals Jan, 17 Oct, 2017 90 days Active Gabapentin 300 MG TAKE ONE CAPSULE BY MOUTH ONCE DAILY AT BEDTIME 90 Active Lisinopril 2.5 MG TAKE 1 TABLET BY MOUTH ONCE DAILY 90 Active Promethazine VC/Codeine 6.25-5-10 MG/5ML Orally every 6 hrs 5 ml as needed for congestion and cough 6h 19 Jan, 2017 Active Citalopram Hydrobromide 20 MG TAKE ONE TABLET BY MOUTH DAILY. 90 Active Ultram 50 mg Orally 2 times a day 1 tablet as needed for severe back pain only 12h Jul, Active Voltaren 1 % Transdermal 4 times a day as directed 6h Dec, Active Hydrochlorothiazide 12.5 MG TAKE 1 CAPSULE BY MOUTH ONCE DAILY 90 Active Zyrtec Allergy 10 MG Active Ibuprofen 800 MG TAKE ONE TABLET BY MOUTH THREE TIMES DAILY NEEDED FOR PAIN. 30 Not-Taking RESULTS Name Result Date Reference Range A1C (IN HOUSE) 2017-07-21 A1C IN HOUSE 5.4 4.3 - 5.6 % Previous A1c 6.3 Lot [id number] Exp date 05/29 PROCEDURES Procedure Date Ordered Result Body Site GLYCATED HEMOGLOBIN TEST July 21, 2017 INSTRUCTIONS MEDICATIONS ADMINISTERED No Known Medications MEDICAL [...]
--- OUTSIDE RECORDS SUMMARY | 2018-06-10 17:07 | XMS REPORT ---
Author Author DIANN OROZCO [facility] Address [address] [place] [address] Care Team Providers Care Knitter Operator Name Role Phone DIANN OROZCO Unavailable PROBLEMS Type Condition ICD9-CM Code RNH78-DL Code Onset Dates Condition Status SNOMED Code Problem Lumbago with sciatica, left side M54.42 Active 578037349 Problem Metabolic syndrome X E88.81 Active 751984677 Problem Anxiety F41.9 Active 35771007 Problem BMI 45.0-49.9, adult Z68.42 Active 807109462 Problem Essential (primary) hypertension I10 Active 45183929 Problem Influenza A J10.1 Active 609125885 Problem Gynecologic exam normal Z01.419 Active 901408052 Problem Colon cancer screening Z12.11 Active 939578850 Problem External hemorrhoid, bleeding K64.4 Active 47772342 Problem Breast cancer screening Z12.31 Active 516867611 Problem Hip pain, left M25.552 Active 51662431 Problem Right upper quadrant abdominal pain R10.11 Active 100414162 Problem Slow transit constipation K59.01 Active 19042170 Problem Fatty liver K76.0 Active 063210101 Problem Maida-menopausal N95.1 Active 368762231960776 Problem Urinary incontinence, unspecified type R32 Active 301628570 Problem Constipation, chronic K59.00 Active 665044641 Problem Morbid obesity, unspecified obesity type E66.01 Active 930368362 Problem Right lateral abdominal pain R10.9 Active 550178696 Problem Vaginal candidiasis B37.3 Active 91427934 ALLERGIES No Information ENCOUNTERS Encounter Location Date Diagnosis [facility] [address] [facility] [id number] [place] [address] Sep, [facility] [address] [facility] [address] [id number] [place] 117[address] Aug, Hip pain, left M25.552 [facility] [address] [id number] FALLS[place] [id number] Jul, Hip pain, left M25.552 [facility] [address] [id number] FALLS, [place] 283789453 Jul, Metabolic syndrome X E88.81 ; Hip pain, left M25.552 ; Morbid obesity, unspecified obesity type E66.01 and BMI 50.0-59.9, adult Z68.43 [facility] [address] [id number] FALLS, [place] 814400887 Apr, [facility] [address] [id number] [place]ALLS, [place] 590707712 Apr, Lumbago with sciatica, left side M54.42 [facility] [address] [place] [address] AVE [id number] FALLS, [place] [id number] Apr, [facility] [address] [place] [address] AVE [id number] [place]ALLS, [place] 897993993 Mar, Metabolic syndrome X E88.81 ; Anxiety F41.9 ; BMI 45.0-49.9, adult Z68.42 and Encounter for immunization Z23 [facility] [address] [place] [address] AVE [id number] FALLS, [place] [id number] Jan, Influenza A J10.1 ; BMI 45.0-49.9, adult Z68.42 and External hemorrhoid, bleeding K64.4 [facility] [address] [place] [address] AVE [id number] FALLS, [place] [id number] Jan, Colon cancer screening Z12.11 [facility] [address] [place] [address] AVE [id number] FALLS, [place] 549549569 Jan, Gynecologic exam normal Z01.419 ; Breast cancer screening Z12.31 ; Colon cancer screening Z12.11 and BMI 50.0-59.9, adult Z68.43 [facility] [address] [id number] [place]ALLS, [place] 034939[address] Jan, [facility] [address] [id number] FALLS, [place] 627453819 Jan, [facility] [address] [id number] [place] 9408892[address] Nov, Lumbago with sciatica, left side M54.[address] [facility] [address] [id number] [place] 528729[address] Nov, Lumbago with sciatica, left side M54.[address] [facility] [address] [id number] [place] [address] Sep, Metabolic syndrome X E88.81 ; Anxiety F41.9 and Lumbago with sciatica, left side M54.42 [facility] [address] [id number] [place] [address] Sep, [facility] [address] [id number] FALLS, [place] [id number] Sep, [facility] [address] [id number] FALLS, [place] 880746135 Sep, Lumbago with sciatica, left side M54.42 [facility] [address] [id number] [place] [id number] Aug, [facility] [address] [id number] FALLS, [place] 786388385 Aug, [facility] [address] [id number] [place] [address]76[address] Jul, Lumbago with sciatica, left side M54.[address] [facility] [address] [id number] [place], [place] 536843428 Jul, Anxiety F41.9 [facility] [address] [id number] [place] 129641603 Jul, Lumbago with sciatica, left side M54.42 and Anxiety F41.9 [facility] [address] [id number] [place] [address] May, Lumbago with sciatica, left side M54.42 [facility] [address] [id number] FALLS, [place] 196503846 Feb, Dermatitis L30.9 and Dysuria R30.0 [facility] [address] [id number] FALLS, [place] 569615228 Jan, Vaginal candidiasis B37.3 [facility] [address] [place] [address] AVE [id number] FALLS, [place] 782467786 Dec, [facility] [address] [id number] [place]ALLS, [place] 835145488 Dec, Dyshidrotic eczema L30.1 [facility] [address] [place] [address] AVE [id number] FALLS, [place] [id number] Nov, [facility] [address] [place] [address] AVE [id number] FALLS, [place] 629642941 Nov, Unexplained endometrial cells on cervical Pap smear R87.618 and Maida-menopausal N95.1 [facility] [address] [place] [address] AVE [id number] FALLS, [place] 010994868 Oct, Well woman exam with routine gynecological exam Z01.419 ; Urinary incontinence, unspecified type R32 ; Breast cancer screening Z12.39 ; Morbid obesity, unspecified obesity type E66.01 and Maida-menopausal N95.1 [facility] Development[facility] [address] [place] [address] AV [id number] FALLS, [place] [id number] Sep, Right lateral abdominal pain R10.9 [facility] [address] [id number], [place] [address]74503395 Aug, Fatigue, unspecified type R53.83 [facility] [address] [id number] [place]ALLS, [place] 484951764 Aug, [facility] [address] [facility] [address] [id number] [place]ALLS, [place] 957139071 Jul, Essential (primary) hypertension I10 and Right upper quadrant pain R10.11 [facility] [address] [id number] FALLS, [place] [id number] Jul, [facility] [address] [id number] FALLS, [place] 909675717 Jul, Acute pain of right knee M25.561 ; Slow transit constipation K59.01 and Fatty liver K76.0 [facility] [address] [id number] FALLS, [place] [id number] May, [facility] [address] [facility] [id number] [place] [address] Apr, Dental examination Z01.20 [facility] [address] [id number] FALLS, [place] [id number] Apr, Encounter for dental examination Z01.20 and Dental caries, unspecified K02.9 [facility] [address] [id number] FALLS, [place] 725409795 Mar, Encounter for dental examination Z01.20 [facility] [address] [id number] [place]ALLS, [place] [id number] Feb, Encounter for dental examination Z01.20 [facility] [address] [id number] [place]ALLS, [place] 729107611 Jan, [facility] [address] [id number] FALLS, [place] [id number] Jan, Encounter for dental examination Z01.20 [facility] [address] [id number] FALLS, [place] 952999720 Jan, Right upper quadrant abdominal pain R10.11 ; Fatty liver K76.0 ; Constipation, chronic K59.00 and Morbid obesity due to excess calories E66.01 [facility] [address] [id number] FALLS, [place] [id number] Dec, [facility] [address] [id number] FALLS, [place] 779012369 Dec, Fatty liver K76.0 ; Slow transit constipation K59.01 and Hip pain , left M25.552 [facility] [address] [id number] FALLS, [place] 344493707 Nov, [facility] [address] [id number] [place] [id number] Nov, Essential (primary) hypertension I10 [facility] Sam[facility] [address] [id number] FALLS, [place] [id number] Oct, [facility] [address] [id number] [place] [id number] Oct, Abdominal pain, right upper quadrant 789.01 ; Constipation 564.00 and Hypertension 401.9 [facility] [address] [id number] [place] 608748985 Sep, Right upper quadrant abdominal pain 789.01 IMMUNIZATIONS No Known Immunizations SOCIAL HISTORY Never Assessed REASON FOR VISIT PLAN OF CARE VITAL SIGNS MEDICATIONS Unknown [...]
--- OUTSIDE RECORDS SUMMARY | 2018-06-10 17:07 | XMS REPORT ---
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 Name Role Phone DIANN OROZCO Unavailable PROBLEMS Type Condition ICD9-CM Code OWU85-PQ Code Onset Dates Condition Status SNOMED Code Problem Lumbago with sciatica, left side M54.42 Active 260157970 Problem Metabolic syndrome X E88.81 Active 184485241 Problem Anxiety F41.9 Active 95405931 Problem BMI 45.0-49.9, adult Z68.42 Active 834046018 Problem Essential (primary) hypertension I10 Active 03052216 Problem Influenza A J10.1 Active 979526900 Problem Gynecologic exam normal Z01.419 Active 650653162 Problem Colon cancer screening Z12.11 Active 789906557 Problem External hemorrhoid, bleeding K64.4 Active 72937166 Problem Breast cancer screening Z12.31 Active 142482797 Problem Hip pain, left M25.552 Active 70000294 Problem Right upper quadrant abdominal pain R10.11 Active 093154485 Problem Slow transit constipation K59.01 Active 51845739 Problem Fatty liver K76.0 Active 732753651 Problem Maida-menopausal N95.1 Active 494066886954030 Problem Urinary incontinence, unspecified type R32 Active 122556794 Problem Constipation, chronic K59.00 Active 988612468 Problem Morbid obesity, unspecified obesity type E66.01 Active 545504374 Problem Right lateral abdominal pain R10.9 Active 158018130 Problem Vaginal candidiasis B37.3 Active 04951270 ALLERGIES No Information ENCOUNTERS Encounter Location Date Diagnosis [facility] [address] [facility] [id number] [place] [address] Sep, [facility] [address] [facility] [address] [id number] [place] [id number] Aug, Hip pain, left M25.552 [facility] [address] [id number], [place] [id number] Jul, Hip pain, left M25.552 [facility] [address] [id number], [place] 288217817 Jul, Metabolic syndrome X E88.81 ; Hip pain, left M25.552 ; Morbid obesity, unspecified obesity type E66.01 and BMI 50.0-59.9, adult Z68.43 [facility] [address] [id number], [place] [id number] Apr, [facility] [address] [id number], [place] [address]75[address] Apr, Lumbago with sciatica, left side M54.42 [facility] [address] [place] [address] AVE [id number], [place] [id number] Apr, [facility] [address] [place] [address] AVE [id number], [place] 436145401 Mar, Metabolic syndrome X E88.81 ; Anxiety F41.9 ; BMI 45.0-49.9, adult Z68.42 and Encounter for immunization Z23 [facility] [address] [place] [address] AVE [id number], [place] [id number] Jan, Influenza A J10.1 ; BMI 45.0-49.9, adult Z68.42 and External hemorrhoid, bleeding K64.4 [facility] [address] [place] [address] AVE [id number], [place] 923605835 Jan, Colon cancer screening Z12.11 [facility] [address] [place] [address] AVE [id number], [place] [id number] Jan, Gynecologic exam normal Z01.419 ; Breast cancer screening Z12.31 ; Colon cancer screening Z12.11 and BMI 50.0-59.9, adult Z68.43 [facility] [address] [id number], [place] [id number] Jan, [facility] [address] [id number], [place] [id number] Jan, [facility] [address] [id number] [place] [id number] Nov, Lumbago with sciatica, left side M54.[address] [facility] [address] [id number] [place] [id number] Nov, Lumbago with sciatica, left side M54.[address] [facility] [address] [id number] [place] [id number] Sep, Metabolic syndrome X E88.81 ; Anxiety F41.9 and Lumbago with sciatica, left side M54.[address] [facility] [address] [id number] [place] [address] Sep, [facility] [address] [id number], [place] [id number] Sep, [facility] [address] [id number], [place] [id number] Sep, Lumbago with sciatica, left side M54.[address] [facility] [address] [id number] [place] [address] Aug, [facility] [address] [id number], [place] 607955021 Aug, [facility] [address] [id number] [place] [id number] Jul, Lumbago with sciatica, left side M54.[address] [facility] [address] [id number] [place] [address] Jul, Anxiety F41.9 [facility] [address] [id number] [place] [address] Jul, Lumbago with sciatica, left side M54.42 and Anxiety F41.9 [facility] [address] [id number] [place] [address] May, Lumbago with sciatica, left side M54.[address] [facility] [address] [id number], [place] 808143071 Feb, Dermatitis L30.9 and Dysuria R30.0 [facility] [address] [id number], [place] 872248864 Jan, Vaginal candidiasis B37.3 [facility] [address] [place] [address] AVE [id number], [place] 9286865[address] Dec, [facility] [address] [id number], [place] [id number] Dec, Dyshidrotic eczema L30.1 [facility] [address] [place] [address] AVE [id number], [place] [id number] Nov, [facility] [address] [place] [address] AVE [id number], [place] 22789[address]46 Nov, Unexplained endometrial cells on cervical Pap smear R87.618 and Maida-menopausal N95.1 [facility] [address] [place] [address] AVE [id number], [place] [id number] Oct, Well woman exam with routine gynecological exam Z01.419 ; Urinary incontinence, unspecified type R32 ; Breast cancer screening Z12.39 ; Morbid obesity, unspecified obesity type E66.01 and Maida-menopausal N95.1 [facility]in[facility]condK [address] [place] [address] AV [id number], [place] [id number] Sep, Right lateral abdominal pain R10.9 [facility] ERIE [address] [id number], [place] [id number] Aug, Fatigue, unspecified type R53.83 [facility] [address] [id number], [place] [id number] Aug, [facility] [address] [facility] [address] [id number], [place] [address]46[address] Jul, Essential (primary) hypertension I10 and Right upper quadrant pain R10.11 [facility] [address] [id number], [place] [address]57 Jul, [facility] [address] [id number], [place] 110903143 Jul, Acute pain of right knee M25.561 ; Slow transit constipation K59.01 and Fatty liver K76.0 [facility] [address] [id number], [place] [id number] May, [facility] [address] [facility] [id number] [place] [id number] Apr, Dental examination Z01.20 [facility] [address] [id number], [place] 479003540 Apr, Encounter for dental examination Z01.20 and Dental caries, unspecified K02.9 [facility] [address] [id number], [place] 570408465 Mar, Encounter for dental examination Z01.20 [facility] [address] [id number], [place] 707882387 Feb, Encounter for dental examination Z01.[address] [facility] [address] [id number], [place] [id number] Jan, [facility] [address] [id number], [place] 15[address]14935 Jan, Encounter for dental examination Z01.20 [facility] [address] [id number], [place] 082245549 Jan, Right upper quadrant abdominal pain R10.11 ; Fatty liver K76.0 ; Constipation, chronic K59.00 and Morbid obesity due to excess calories E66.[address] [facility] [address] [id number], [place] 956719737 Dec, [facility] [address] [id number], [place] 050095015 Dec, Fatty liver K76.0 ; Slow transit constipation K59.01 and Hip pain , left M25.552 [facility] [address] [id number], [place] 993816512 Nov, [facility] [address] [id number] [place] [address] Nov, Essential (primary) hypertension I10 [facility] [address] [id number] [place] [address] Oct, [facility] [address] [id number] [place] [address] Oct, Abdominal pain, right upper quadrant 789.01 ; Constipation 564.00 and Hypertension 401.9 [facility] [address] [facility] [address] [id number] [place] [address] Sep, Right upper quadrant abdominal pain 789.01 IMMUNIZATIONS No Known Immunizations SOCIAL HISTORY Never Assessed REASON FOR VISIT Xenical question PLAN OF CARE VITAL SIGNS MEDICATIONS Medication Instructions Dosage Frequency Start Date End Date Duration Status Xenical 120 MG Orally 3 times a day with meals 1 capsule with meals Jan, Oct, 90 days Active RESULTS No Results PROCEDURES No [...] Normal 11/2015 Surgical History DNC and Biopsy 2015 Hospitalization History Surgery(s)/Childbirth(s)
--- OUTSIDE RECORDS SUMMARY | 2018-06-10 17:07 | XMS REPORT ---
Author Author DIANN OROZCO Organization [employer] Address Unknown Phone Unavailable Care Team Providers Care Sales Advisor Name Role Phone DIANN OROZCO CP Unavailable Allergies No Known Allergies Problems Problem Type Condition ICD-9 Code Onset Dates Condition Status Problem Hypertension 401.9 Active Medications No Known Medications Results No Known Results Summary Purpose [employer] Submission
--- OUTSIDE RECORDS SUMMARY | 2018-06-10 17:08 | XMS REPORT ---
Author Author DIANN OROZCO Organization [employer] Address Unknown Phone Unavailable Care Team Providers Care Rn Otolaryngology Name Role Phone DIANN OROZCO CP Unavailable Allergies No Known Allergies Problems Problem Type Condition Code Onset Dates Condition Status Problem Constipation, chronic K59.00 Active Problem Morbid obesity due to excess calories E66.01 Active Problem Right upper quadrant abdominal pain R10.11 Active Problem Hip pain, left M25.552 Active Problem Essential (primary) hypertension I10 Active Problem Fatty liver K76.0 Active Problem Slow transit constipation K59.01 Active Medications Medication Code System Code Instructions Start Date End Date Status Dosage ProAir HFA [facility] [address]-21 108 (90 Base) MCG/ACT Inhalation every 4 hrs 2 puffs as needed Results No Known Results Summary Purpose [employer] Submission
--- OUTSIDE RECORDS SUMMARY | 2018-06-10 17:08 | XMS REPORT ---
Author Author DIANN OROZCO Organization [facility] Address [address] [place] [address] Care Team Providers Care Baker Bench Name Role Phone DIANN OROZCO Unavailable PROBLEMS Type Condition ICD9-CM Code CJR10-KT Code Onset Dates Condition Status SNOMED Code Problem Lumbago with sciatica, left side M54.42 Active 033851178 Problem Metabolic syndrome X E88.81 Active 160230633 Problem Anxiety F41.9 Active 38309527 Problem BMI 45.0-49.9, adult Z68.42 Active 741887339 Problem Essential (primary) hypertension I10 Active 09884309 Problem Influenza A J10.1 Active 825372304 Problem Gynecologic exam normal Z01.419 Active 622197957 Problem Colon cancer screening Z12.11 Active 680138948 Problem External hemorrhoid, bleeding K64.4 Active 81882699 Problem Breast cancer screening Z12.31 Active 759179625 Problem Hip pain, left M25.552 Active 09300449 Problem Right upper quadrant abdominal pain R10.11 Active 955342424 Problem Slow transit constipation K59.01 Active 53240748 Problem Fatty liver K76.0 Active 802282416 Problem Maida-menopausal N95.1 Active 660351711389591 Problem Urinary incontinence, unspecified type R32 Active 222389689 Problem Constipation, chronic K59.00 Active 834845017 Problem Morbid obesity, unspecified obesity type E66.01 Active 965470675 Problem Right lateral abdominal pain R10.9 Active 952819469 Problem Vaginal candidiasis B37.3 Active 98225915 ALLERGIES No Information ENCOUNTERS Encounter Location Date Diagnosis [facility] [address] [id number] [place] [id number] Apr, [facility] [address] [id number] [place] [id number] Apr, Lumbago with sciatica, left side M54.[address] [facility] [address] [id number] ONGE, [place] [address]409780[address] Apr, [facility] [address] [place] [address] AVE [id number] ONGE[place] [id number] Mar, Metabolic syndrome X E88.81 ; Anxiety F41.9 ; BMI 45.0-49.9, adult Z68.42 and Encounter for immunization Z23 [facility] [address] [place] [address] AVE [id number] ON[place] [id number] Jan, Influenza A J10.1 ; BMI 45.0-49.9, adult Z68.42 and External hemorrhoid, bleeding K64.4 [facility] [address] [id number] ONGE, [place] 885507[address] Jan, Colon cancer screening Z12.11 [facility] [address] [place] [address] AVE [id number] ONGE, [place] 995585979 Jan, Gynecologic exam normal Z01.419 ; Breast cancer screening Z12.31 ; Colon cancer screening Z12.11 and BMI 50.0-59.9, adult Z68.43 [facility] [address] [facility] [address] [id number] ONGE, [place] [id number] Jan, [facility] [address] [place] [address] AVE [id number] ONGE[place] [id number] Jan, [facility] [address] [place] [address] AVE [id number] ONGE[place] 845224760 Nov, Lumbago with sciatica, left side M54.42 [facility] [address] [id number] ONGE, [place] [address]36125957 Nov, Lumbago with sciatica, left side M54.42 [facility] [address] [id number] ONGE, [place] 753113999 Sep, Metabolic syndrome X E88.81 ; Anxiety F41.9 and Lumbago with sciatica, left side M54.42 [facility] [address] [id number] ONGE, [place] [id number] Sep, [facility] [address] [id number] [place] [id number] Sep, [facility] [address] [id number] [place] [id number] Sep, Lumbago with sciatica, left side M54.[address] [facility] [address] [id number] [place] [id number] Aug, [facility] [address] [id number] [place] [id number] Aug, [facility] [address] [id number] [place] [id number] Jul, Lumbago with sciatica, left side M54.[address] [facility] [address] [id number] [place] [id number] Jul, Anxiety F41.9 [facility] [address] [id number] [facility] [id number] Jul, Lumbago with sciatica, left side M54.42 and Anxiety F41.9 [facility] [address] [id number] RECOVERY [facility] [id number] May, Lumbago with sciatica, left side M54.[address] [facility] [address] [id number] RECOV[facility] [id number] Feb, Dermatitis L30.9 and Dysuria R30.[address] [facility] [address] [id number] ONGE, [place] [id number] Jan, Vaginal candidiasis B37.[address] [facility] [address] [id number] [place] [id number] Dec, [facility] [address] [id number] RECOVERY [facility] [id number] Dec, Dyshidrotic eczema L30.[address] [facility] [address] [id number] [place] [id number] Nov, [facility] [address] [id number] ONGE, [place] [id number] 13 Nov, 2015 Unexplained endometrial cells on cervical Pap smear R87.618 and Maida-menopausal N95.1 [facility] [address] [id number] ONGE, [place] 434299781 28 Oct, 2015 Well woman exam with routine gynecological exam Z01.419 ; Urinary incontinence, unspecified type R32 ; Breast cancer screening Z12.39 ; Morbid obesity, unspecified obesity type E66.01 and Maida-menopausal N95.1 [facility] [address] [id number] ONGE, [place] 374432303 Sep, Right lateral abdominal pain R10.9 [facility] CRISTOPHER [address] [id number], [place] [address] Aug, Fatigue, unspecified type R53.83 [facility] [address] [id number] ONGE, [place] [address] Aug, [facility] [address] [id number] ONGE, [place] 818[address]358 Jul, Essential (primary) hypertension I10 and Right upper quadrant pain R10.11 [facility] [address] [id number] ONGE, [place] [address]1995[address] Jul, [facility] [address] [id number] ONGE, [place] [address]5035[address] Jul, Acute pain of right knee M25.561 ; Slow transit constipation K59.01 and Fatty liver K76.0 [facility] [address] [id number] ONGE, [place] [address]47[address] May, [facility] [address] [id number], [place] [id number] Apr, Dental examination Z01.20 [facility] [address] [id number] ONGE, [place] 317589745 03 Apr, 2015 Encounter for dental examination Z01.20 and Dental caries, unspecified K02.9 [facility] [address] [id number] [place], [place] 819876677 Mar, Encounter for dental examination Z01.20 [facility] [address] [id number] ONGE, [place] 648[address]616 Feb, Encounter for dental examination Z01.20 [facility] [address] [id number] ONGE, [place] 570220090 Jan, [facility] [address] [id number] ONGE, [place] 788[address]95 Jan, Encounter for dental examination Z01.20 [facility] [address] [id number] ONGE, [place] [id number] Jan, Right upper quadrant abdominal pain R10.11 ; Fatty liver K76.0 ; Constipation, chronic K59.00 and Morbid obesity due to excess calories E66.01 [facility] MICHAEL [address] [place] [address] A[place] [id number] ONGE, [place] [id number] Dec, [facility] [address] [place] [address] AVE [id number] ONGE, [place] [address]84378857 Dec, Fatty liver K76.0 ; Slow transit constipation K59.01 and Hip pain , left M25.552 [facility] [address] [place] [address] AVE [id number] ONGE, [place] [id number] Nov, [facility] [address] [place] [address] A[address] [id number] ONGE, [place] [id number] Nov, Essential (primary) hypertension I10 [facility] [address] [place] [address] AVE [id number] ONGE, [place] [id number] Oct, [facility] [address] [id number] ONGE, [place] 787386258 Oct, Abdominal pain, right upper quadrant 789.01 ; Constipation 564.00 and Hypertension 401.9 [facility] [address] [place] [address] AVE [id number] ONGE, [place] [id number] Sep, Right upper quadrant abdominal pain 789.01 IMMUNIZATIONS No Known Immunizations SOCIAL HISTORY Never Assessed REASON FOR VISIT refill PLAN OF CARE VITAL SIGNS MEDICATIONS Medication Instructions Dosage Frequency Start Date End Date Duration Status Baclofen 10 mg Orally every 8 hrs 1 tablet with food or milk as needed [...]
--- OUTSIDE RECORDS SUMMARY | 2018-06-10 17:08 | XMS REPORT ---
Author Author YUMIKO NUÑEZ [facility] Address [address] [place] [address] Care Team Providers Care Wool Grader Name Role Phone YUMIKO NUÑEZ Unavailable PROBLEMS Type Condition ICD9-CM Code JDW90-XW Code Onset Dates Condition Status SNOMED Code Problem Constipation, chronic K59.00 Active 572258775 Problem Maida-menopausal N95.1 Active 242336847004706 Problem Right lateral abdominal pain R10.9 Active 988645115 Problem Metabolic syndrome X E88.81 Active 430321599 Problem Anxiety F41.9 Active 40782285 Problem Morbid obesity, unspecified obesity type E66.01 Active 670845663 Problem Urinary incontinence, unspecified type R32 Active 579208334 Problem Lumbago with sciatica, left side M54.42 Active 726950445 Problem Vaginal candidiasis B37.3 Active 88094554 Problem Slow transit constipation K59.01 Active 80092422 Problem Fatty liver K76.0 Active 753187794 Problem Hip pain, left M25.552 Active 95171485 Problem Essential (primary) hypertension I10 Active 48082425 Problem Right upper quadrant abdominal pain R10.11 Active 845503023 ALLERGIES Substance Reaction Event Type Date Status Simvastatin fatigue Drug Allergy Feb, Active Lovastatin fatigue Drug Allergy Feb, Active SOCIAL HISTORY No smoking Hx information available PLAN OF CARE Activity Details Follow Up 1 Week Reason: VITAL SIGNS Height 65.25 in 2016-02-15 Weight 307.6 lbs 2016-02-15 Temperature 98.6 degrees Fahrenheit 2016-02-15 Heart Rate 87 bpm 2016-02-15 Respiratory Rate 16 2016-02-15 BMI 50.79 kg/m2 2016-02-15 Blood pressure systolic 118 mmHg 2016-02-15 Blood pressure diastolic 82 mmHg 2016-02-15 MEDICATIONS Medication Instructions Dosage Frequency Start Date End Date Duration Status Zyrtec Allergy 10 MG Active ProAir HFA 108 (90 Base) MCG/ACT Inhalation every 4 hrs 2 puffs as needed 4h Active Triamcinolone Acetonide 0.1 % Externally Twice a day 1 application to affected area 12h Dec, 10 days Active Hydrochlorothiazide 12.5 MG TAKE ONE CAPSULE BY MOUTH ONCE DAILY 90 Active Voltaren 1 % Transdermal 4 times a day as directed 6h Dec, Active Xenical 120 MG Orally 3 times a day with meals 1 capsule with meals Jan, Active Nystatin-Triamcinolone 766328-3.1 UNIT/GM Externally Twice a day 1 application to affected area 12h Feb, Feb, 10 days Active Ibuprofen 800 MG TAKE ONE TABLET BY MOUTH THREE TIMES DAILY NEEDED FOR PAIN. 30 Active Citalopram Hydrobromide 20 MG TAKE ONE TABLET BY MOUTH DAILY. 90 Active Lisinopril 2.5 MG TAKE ONE TABLET BY MOUTH DAILY. 90 Active RESULTS Name Result Date Reference Range UA LONG DIP (IN HOUSE) 2016-02-15 Lot # [id number] Exp date 09/25 Clarity clear Color dark yellow Odor none GLU neg ZOILA neg KET neg SG 1.025 BLO Trace-intact pH 5.5 Protein neg URO 0.2 E.U./dL NIT neg MEGHNA 1+ Lot # Exp date CULTURE, URINE 2016-02-15 Urine Culture, Routine Final report Result 1 No growth PROCEDURES Procedure Date Ordered Related Diagnosis Body Site Office Visit, Est Pt., Level 3 Feb 15, 2016 URINALYSIS, AUTO, W/O SCOPE Feb 15, 2016 URINE CULTURE/COLONY COUNT Feb 15, 2016 IMMUNIZATIONS No Known Immunizations
--- OUTSIDE RECORDS SUMMARY | 2018-06-10 17:08 | XMS REPORT ---
Author DONNY Elise [facility] Address [address] [place] [address] Care Team Providers Care Manager Forensic Name Role Phone DONNY CLAY Unavailable PROBLEMS Type Condition ICD9-CM Code PPQ20-RP Code Onset Dates Condition Status SNOMED Code Problem Hip pain, left M25.552 Active 83923732 Problem Fatty liver K76.0 Active 817130816 Problem Slow transit constipation K59.01 Active 65031644 Assessment Breast cancer screening Z12.39 Oct, Active 519473399 Assessment Well woman exam with routine gynecological exam Z01.419 Oct Active 164089205 Problem Essential (primary) hypertension I10 Active 72821436 Problem Urinary incontinence, unspecified type R32 Active 786812284 Problem Morbid obesity, unspecified obesity type E66.01 Active 815967852 Problem Right upper quadrant abdominal pain R10.11 Active 506368124 Problem Constipation, chronic K59.00 Active 662113259 Problem Maida-menopausal N95.1 Active 582319672948325 Problem Right lateral abdominal pain R10.9 Active 192156369 ALLERGIES Substance Reaction Event Type Date Status Simvastatin fatigue Drug Allergy Oct, Active Lovastatin fatigue Drug Allergy Oct, Active SOCIAL HISTORY No smoking Hx information available PLAN OF CARE VITAL SIGNS Height 65.25 in 2015-11-07 Weight 310 lbs 2015-11-07 Heart Rate 76 bpm 2015-11-07 Respiratory Rate 18 2015-11-07 BMI 51.19 kg/m2 2015-11-07 Blood pressure systolic 124 mmHg 2015-11-07 Blood pressure diastolic 74 mmHg 2015-11-07 MEDICATIONS Medication Instructions Dosage Frequency Start Date End Date Duration Status Xenical 120 MG Orally 3 times a day with meals 1 capsule with meals Jan, Active Citalopram Hydrobromide 20 MG Orally Once a day 1 tablet 24h Active ProAir HFA 108 (90 Base) MCG/ACT Inhalation every 4 hrs 2 puffs as needed 4h Active Ibuprofen 800 MG TAKE ONE TABLET BY MOUTH THREE TIMES DAILY NEEDED FOR PAIN. 30 Active Zyrtec Allergy 10 MG Active Voltaren 1 % Transdermal 4 times a day as directed 6h Dec, Active Hydrochlorothiazide 12.5 MG Orally Once a day 1 tablet 24h Active Lisinopril 2.5 MG Orally Once a day 1 tablet 24h Active RESULTS Name Result Date Reference Range PDF Report 2015-11-07 PDF Report1 LCLS PAP TEST, HPV IF ASCUS 2015-11-07 DIAGNOSIS: Specimen adequacy: Clinician provided ICD10: Performed by: QC reviewed by: . . Note: . Mammogram, Bilateral Screening 2015-11-26 PROCEDURES Procedure Date Ordered Related Diagnosis Body Site SPECIMEN HANDLING Nov 07, 2015 Office Visit, Est Pt., Level 3 Nov 07, 2015 IMMUNIZATIONS No Known Immunizations
--- OUTSIDE RECORDS SUMMARY | 2018-06-10 17:08 | XMS REPORT ---
Author Author DIANN OROZCO Organization [facility] Address [address] [place] [address] Care Team Providers Care Woods Warden Name Role Phone DIANN OROZCO Unavailable PROBLEMS Type Condition ICD9-CM Code ARB65-SS Code Onset Dates Condition Status SNOMED Code Problem Lumbago with sciatica, left side M54.42 Active 895743766 Problem Metabolic syndrome X E88.81 Active 717598934 Problem Anxiety F41.9 Active 90291870 Problem BMI 45.0-49.9, adult Z68.42 Active 199297621 Problem Essential (primary) hypertension I10 Active 04868213 Problem Influenza A J10.1 Active 879089693 Problem Gynecologic exam normal Z01.419 Active 625162403 Problem Colon cancer screening Z12.11 Active 535672899 Problem External hemorrhoid, bleeding K64.4 Active 27563802 Problem Breast cancer screening Z12.31 Active 957509984 Problem Hip pain, left M25.552 Active 79883604 Problem Right upper quadrant abdominal pain R10.11 Active 238504731 Problem Slow transit constipation K59.01 Active 43687371 Problem Fatty liver K76.0 Active 850599157 Problem Maida-menopausal N95.1 Active 220107721992854 Problem Urinary incontinence, unspecified type R32 Active 574411037 Problem Constipation, chronic K59.00 Active 615053571 Problem Morbid obesity, unspecified obesity type E66.01 Active 039459183 Problem Right lateral abdominal pain R10.9 Active 866859088 Problem Vaginal candidiasis B37.3 Active 06595396 ALLERGIES No Information ENCOUNTERS Encounter Location Date Diagnosis [facility] [address] [id number] [place] [id number] Jul, [facility] [address] [id number] [place] [id number] Apr, [facility] [address] [id number], [place] [id number] Apr, Lumbago with sciatica, left side M54.42 [facility] [address] [place] [address] AVE [id number], [place] [id number] Apr, [facility] [address] [place] [address] AVE [id number], [place] [id number] Mar, Metabolic syndrome X E88.81 ; Anxiety F41.9 ; BMI 45.0-49.9, adult Z68.42 and Encounter for immunization Z23 [facility] [address]US [address] [facility] [address] [id number], [place] [id number] Jan, Influenza A J10.1 ; BMI 45.0-49.9, adult Z68.42 and External hemorrhoid, bleeding K64.4 [facility] Q [facility] [id number], [place] [id number] Jan, Colon cancer screening Z12.11 [facility] [address] [place] [address] AVE [id number], [place] [id number] Jan, Gynecologic exam normal Z01.419 ; Breast cancer screening Z12.31 ; Colon cancer screening Z12.11 and BMI 50.0-59.9, adult Z68.43 [facility] [place] [address] AVE [id number], [place] [phone] Jan, [facility] [address] [place] [address] AVE [id number], [place] [id number] Jan, [facility] BristolRODRIGUEZ [address] [place] [address] AVE [id number], [place] [phone] Nov, Lumbago with sciatica, left side M54.42 [facility] [address] [place] [address] AVE [id number], [place] [id number] Nov, Lumbago with sciatica, left side M54.42 [facility] [address] [address] [id number], [place] [phone] Sep, Metabolic syndrome X E88.81 ; Anxiety F41.9 and Lumbago with sciatica, left side M54.42 [facility] [address] [id number] [place] [id number] Sep, [facility] [address] [id number] [place] [id number] Sep, [facility] [address] [id number] [place] [id number] Sep, Lumbago with sciatica, left side M54.[address] [facility] [address] [id number] [place] [id number] Aug, [facility] [address] [id number] [place] [id number] Aug, [facility] [address] [id number] [facility] [place] [id number] Jul, Lumbago with sciatica, left side M54.[address] [facility] [address] [id number] [facility] [id number] Jul, Anxiety F41.[address] [facility] [address] [id number], [place] [id number] Jul, Lumbago with sciatica, left side M54.42 and Anxiety F41.[address] [facility] [address] [id number] [facility] [id number] May, Lumbago with sciatica, left side M54.[address] [facility] [address] [id number], [place] [id number] Feb, Dermatitis L30.9 and Dysuria R30.[address] [facility] [address] [id number] [place] [phone] Jan, Vaginal candidiasis B37.[address] [facility] [address] [id number], [place] [id number] Dec, [facility] [address] [id number], [place] [id number] Dec, Dyshidrotic eczema L30.[address] [facility] [address] [id number], [place] [id number] Nov, [facility] R[address] [facility] [address] [id number], [place] [id number] Nov, Unexplained endometrial cells on cervical Pap smear R87.618 and Maida-menopausal N95.1 [facility] RODRIG[address] [place] [address] AVE [id number], [place] [id number] Oct, Well woman exam with routine gynecological exam Z01.419 ; Urinary incontinence, unspecified type R32 ; Breast cancer screening Z12.39 ; Morbid obesity, unspecified obesity type E66.01 and Maida-menopausal N95.1 [facility] RODRIGUEZ [address] [place] [address] AVE [id number], [place] [id number] Sep, Right lateral abdominal pain R10.9 [facility] CRISTOPHER [address] [id number][place] [id number] Aug, Fatigue, unspecified type R53.83 [facility] R[address] [id number], [place] [id number] Aug, [facility] R[address] [id number], [place] [id number] Jul, Essential (primary) hypertension I10 and Right upper quadrant pain R10.11 [facility] RODRIGUEZ [address] [place] [address] AVE [id number], [place] [id number] Jul, [facility] R[address] [id number], [place] [id number] Jul, Acute pain of right knee M25.561 ; Slow transit constipation K59.01 and Fatty liver K76.[address] [id number], [place] [id number] May, [facility] [address] [id number] [id number] Apr, Dental examination Z01.20 [facility] RODRIG[address] [place] [address] AVE [id number], [place] [id number] 03 Apr, 2015 Encounter for dental examination Z01.20 and Dental caries, unspecified K02.9 [facility] [address] [id number], [place] [id number] Mar, Encounter for dental examination Z01.20 [facility] [address] [id number], [place] [id number] Feb, Encounter for dental examination Z01.20 [facility] [address] [id number], [place] [id number] Jan, [facility] [address] [id number], [place] [id number] Jan, Encounter for dental examination Z01.20 [facility] [address] [id number], [place] [id number] Jan, Right upper quadrant abdominal pain R10.11 ; Fatty liver K76.0 ; Constipation, chronic K59.00 and Morbid obesity due to excess calories E66.01 [facility] [address] [id number], [place] [id number] Dec, [facility] [address] [id number], [place] [id number] Dec, Fatty liver K76.0 ; Slow transit constipation K59.01 and Hip pain , left M25.552 [facility] [address] [id number], [place] [id number] Nov, [facility] [address] [id number], [place] [id number] Nov, Essential (primary) hypertension I10 [facility] [address] [id number], [place] [id number] Oct, [facility] [address] [id number], [place] [id number] Oct, Abdominal pain, right upper quadrant 789.01 ; Constipation 564.00 and Hypertension 401.9 [facility] [address] [id number], [place] [id number] Sep, Right upper quadrant abdominal pain 789.01 IMMUNIZATIONS No Known Immunizations SOCIAL HISTORY Never Assessed REASON FOR VISIT Triage PLAN OF CARE VITAL SIGNS MEDICATIONS Unknown [...]
--- OUTSIDE RECORDS SUMMARY | 2018-06-10 17:08 | XMS REPORT ---
Author Author DIANN OROZCO [facility] eClinicalWorks Address Unknown Phone Unavailable Care Team Providers Care Human Factors Ergonomist Name Role Phone DIANN OROZCO CP Unavailable Allergies, Adverse Reactions, Alerts Substance Reaction Event Type Simvastatin fatigue Drug Allergy Lovastatin fatigue Drug Allergy Problems Problem Type Condition Code Onset Dates Condition Status Problem Essential (primary) hypertension I10 Active Assessment Right lateral abdominal pain R10.9 Active Problem Right upper quadrant abdominal pain R10.11 Active Problem Constipation, chronic K59.00 Active Problem Right lateral abdominal pain R10.9 Active Problem Slow transit constipation K59.01 Active Problem Hip pain, left M25.552 Active Problem Morbid obesity due to excess calories E66.01 Active Problem Fatty liver K76.0 Active Medications Medication Code System Code Instructions Start Date End Date Status Dosage Lisinopril [facility] [address]-56 2.5 MG Orally Once a day 1 tablet Zyrtec Allergy [facility] [address]-84 10 MG Orally not defined Voltaren [facility] [address]-52 1 % Transdermal 4 times a day Dec 12, 2014 as directed Ibuprofen [facility] 90332872422 800 MG TAKE ONE TABLET BY MOUTH THREE TIMES DAILY NEEDED FOR PAIN. ProAir HFA [facility] [address]-44 108 (90 Base) MCG/ACT Inhalation every 4 hrs 2 puffs as needed Citalopram Hydrobromide [facility] [address]-82 20 MG Orally Once a day 1 tablet Xenical [facility] [address]-02 120 MG Orally 3 times a day with meals Jan 11, 2015 1 capsule with meals Fiber ND 0 Orally not defined Hydrochlorothiazide [facility] [address]-04 12.5 MG Orally Once a day 1 tablet Procedures Procedure Coding System Code Date Office Visit, Est Pt., Level 3 CPT-4 54975 Oct 02, 2015 Vital Signs Date/Time: Oct 02, 2015 Cardiac Monitoring Heart Rate 85 bpm Weight 313.5 lbs Height 65.25 in BMI 51.76 Index Blood Pressure Diastolic 80 mmHg Blood Pressure Systolic 136 mmHg Results No Known Results Summary Purpose eClinicalWorks Submission
--- OUTSIDE RECORDS SUMMARY | 2018-06-10 17:08 | XMS REPORT ---
Author Author DIANN OROZCO Organization eClinicalWorks Address Unknown Phone Unavailable Care Team Providers Care Ruling Machine Set Up Operator Name Role Phone DIANN OROZCO CP Unavailable Allergies, Adverse Reactions, Alerts Substance Reaction Event Type N.K.D.A. Info Not Available Non Drug Allergy Problems Problem Type Condition ICD-9 Code Onset Dates Condition Status Assessment Abdominal pain, right upper quadrant 789.01 Active Assessment Constipation 564.00 Active Problem Hypertension 401.9 Active Assessment Hypertension 401.9 Active Medications Medication Code System Code Instructions Start Date End Date Status Dosage Citalopram Hydrobromide [facility] [address]-10 20 MG Orally Once a day 1 tablet IBU-200 [facility] [address]-36 200 MG Orally every 6 hrs 4 tablet as needed Hydrochlorothiazide [facility] [address]-43 12.5 MG Orally Once a day 1 tablet ProAir HFA [facility] [address]-96 108 (90 Base) MCG/ACT Inhalation every 4 hrs 2 puffs as needed Fiber NDC 0 Orally not defined Lisinopril [facility] [address]-46 2.5 MG Orally Once a day 1 tablet Prilosec [facility] [address]-34 20 MG Orally Once a day Oct 19, 2014 1 capsule Procedures Procedure Coding System Code Date Office Visit, Est Pt., Level 3 CPT-4 35520 Oct 19, 2014 Vital Signs Date/Time: Oct 19, 2014 Temperature 98.2 F Weight 307.1 lbs Height 65.25 in BMI 50.71 Index Blood Pressure Diastolic 68 mmHg Blood Pressure Systolic 122 mmHg Cardiac Monitoring Heart Rate 85 bpm Results No Known Results Summary Purpose eClinicalWorks Submission
--- OUTSIDE RECORDS SUMMARY | 2018-06-10 17:08 | XMS REPORT ---
Author Author DIANN OROZCO [facility] eClinicalWorks Address Unknown Phone Unavailable Care Team Providers Care Assistant Golf Coach Name Role Phone DIANN OROZCO CP Unavailable Allergies, Adverse Reactions, Alerts Substance Reaction Event Type N.K.D.A. Info Not Available Non Drug Allergy Problems Problem Type Condition Code Onset Dates Condition Status Problem Slow transit constipation K59.01 Active Problem Hip pain, left M25.552 Active Problem Fatty liver K76.0 Active Assessment Slow transit constipation K59.01 Active Assessment Hip pain, left M25.552 Active Problem Essential (primary) hypertension I10 Active Assessment Fatty liver K76.0 Active Medications Medication Code System Code Instructions Start Date End Date Status Dosage Lisinopril [facility] [address]-59 2.5 MG Orally Once a day 1 tablet MetFORMIN HCl ER [facility] [address]-95 500 MG Orally Once a day Dec 12, 2014 1 tablet with evening meal Prilosec [facility] [address]-62 20 MG Orally Once a day Oct 19, 2014 1 capsule ProAir HFA [facility] [address]-54 108 (90 Base) MCG/ACT Inhalation every 4 hrs 2 puffs as needed Ibuprofen [facility] [address]-20 800 MG Orally Three times a day Dec 12, 2014 1 tablet prn pain Lovastatin [facility] [address]-21 10 MG Orally Once a day Dec 12, 2014 1 tablet with a meal Citalopram Hydrobromide [facility] [address]-92 20 MG Orally Once a day 1 tablet Hydrochlorothiazide [facility] [address]-45 12.5 MG Orally Once a day 1 tablet IBU-200 [facility] [address]-88 200 MG Orally every 6 hrs 4 tablet as needed Voltaren [facility] [address]-27 1 % Transdermal 4 times a day Dec 12, 2014 as directed Fiber ND 0 Orally not defined Procedures Procedure Coding System Code Date Office Visit, Est Pt., Level 4 CPT-4 58153 Dec 12, 2014 Vital Signs Date/Time: Dec 12, 2014 Temperature 99.0 F Weight 313.4 lbs Height 65.25 in BMI 51.75 Index Blood Pressure Diastolic 84 mmHg Blood Pressure Systolic 128 mmHg Cardiac Monitoring Heart Rate 79 bpm Results No Known Results Summary Purpose eClinicalWorks Submission
--- OUTSIDE RECORDS SUMMARY | 2018-06-10 17:08 | XMS REPORT ---
Author Author [facility] Address [address] [place] [address] Care Team Providers Care Geochemistry Teacher Name Role Phone DIANN OROZCO Unavailable PROBLEMS Type Condition ICD9-CM Code SVF11-YI Code Onset Dates Condition Status SNOMED Code Assessment Essential (primary) hypertension I10 Jul, Active 70556640 Assessment Right upper quadrant pain R10.11 Jul, Active 882925577 Problem Right upper quadrant abdominal pain R10.11 Active 261074650 Problem Constipation, chronic K59.00 Active 669190029 Problem Hip pain, left M25.552 Active 86008967 Problem Essential (primary) hypertension I10 Active 90542296 Problem Fatty liver K76.0 Active 744076109 Problem Slow transit constipation K59.01 Active 37340259 ALLERGIES Unknown Allergies SOCIAL HISTORY No smoking Hx information available PLAN OF CARE VITAL SIGNS MEDICATIONS Unknown Medications RESULTS Name Result Date Reference Range THYROID ANALYZER 2015-08-07 TSH 1.080 0.450-4.500 CBC 2015-08-07 WBC 10.2 3.4-10.8 RBC 4.81 3.77-5.28 Hemoglobin 12.8 11.1-15.9 Hematocrit 39.8 34.0-46.6 MCV 83 79-97 MCH 26.6 26.6-33.0 MCHC 32.2 31.5-35.7 RDW 16.1 12.3-15.4 Platelets 249 150-379 Neutrophils 72 Lymphs 22 Monocytes 5 Eos 1 Basos 0 Immature Cells Neutrophils (Absolute) 7.3 1.4-7.0 Lymphs (Absolute) 2.2 0.7-3.1 Monocytes(Absolute) 0.6 0.1-0.9 Eos (Absolute) 0.1 0.0-0.4 Baso (Absolute) 0.0 0.0-0.2 Immature Granulocytes 0 Immature Grans (Abs) 0.0 0.0-0.1 NRBC Hematology Comments: LIPID PANEL 2015-08-07 Cholesterol, Total 148 100-199 Triglycerides 93 0-149 HDL Cholesterol 52 >39 VLDL Cholesterol Kevin 19 5-40 LDL Cholesterol Calc 77 0-99 Comment: CMP 2015-08-07 Glucose, Serum 96 65-99 BUN 15 6-24 Creatinine, Serum 0.50 0.57-1.00 eGFR If NonAfricn Am 116 >59 eGFR If Africn Am 134 >59 BUN/Creatinine Ratio 30 9-23 Sodium, Serum 141 134-144 Potassium, Serum 4.3 3.5-5.2 Chloride, Serum 98 97-108 Carbon Dioxide, Total 26 18-29 Calcium, Serum 9.0 8.7-10.2 Protein, Total, Serum 6.7 6.0-8.5 Albumin, Serum 3.8 3.5-5.5 Globulin, Total 2.9 1.5-4.5 A/G Ratio 1.3 1.1-2.5 Bilirubin, Total 0.2 0.0-1.2 Alkaline Phosphatase, S 85 39-117 AST (SGOT) 18 0-40 ALT (SGPT) 17 0-32 PROCEDURES Procedure Date Ordered Related Diagnosis Body Site ASSAY THYROID STIM HORMONE August 07, 2015 LIPID PANEL August 07, 2015 COMPREHEN METABOLIC PANEL August 07, 2015 COMPLETE CBC W/AUTO DIFF WBC August 07, 2015 VENIPUNCT, ROUTINE* August 07, 2015 IMMUNIZATIONS No Known Immunizations
--- OUTSIDE RECORDS SUMMARY | 2018-06-10 17:08 | XMS REPORT ---
Author Author DIANN OROZCO Organization eClinicalWorks Address Unknown Phone Unavailable Care Team Providers Care Cloth Edge Singer Name Role Phone DIANN OROZCO CP Unavailable Allergies No Known Allergies Problems Problem Type Condition Code Onset Dates Condition Status Problem Hypertension 401.9 Active Problem Essential (primary) hypertension I10 Active Medications No Known Medications Results No Known Results Summary Purpose eClinicalWorks Submission
--- OUTSIDE RECORDS SUMMARY | 2018-06-10 17:09 | XMS REPORT ---
Author Author PAM DIANN [facility] Address [address] [place] [address] Care Team Providers Care Community Marketing Manager Name Role Phone DIANN OROZCO Unavailable PROBLEMS Type Condition ICD9-CM Code ECV70-JX Code Onset Dates Condition Status SNOMED Code Problem Lumbago with sciatica, left side M54.42 Active 070215892 Problem Metabolic syndrome X E88.81 Active 280320180 Problem Anxiety F41.9 Active 57566098 Problem BMI 45.0-49.9, adult Z68.42 Active 231543783 Problem Essential (primary) hypertension I10 Active 55067596 Problem Influenza A J10.1 Active 202117857 Problem Gynecologic exam normal Z01.419 Active 923077350 Problem Colon cancer screening Z12.11 Active 646129478 Problem External hemorrhoid, bleeding K64.4 Active 25584408 Problem Breast cancer screening Z12.31 Active 666554288 Problem Hip pain, left M25.552 Active 41225177 Problem Right upper quadrant abdominal pain R10.11 Active 226280736 Problem Slow transit constipation K59.01 Active 77716276 Problem Fatty liver K76.0 Active 435444761 Problem Maida-menopausal N95.1 Active 047996248649895 Problem Urinary incontinence, unspecified type R32 Active 701367395 Problem Constipation, chronic K59.00 Active 951815066 Problem Morbid obesity, unspecified obesity type E66.01 Active 908658113 Problem Right lateral abdominal pain R10.9 Active 959226156 Problem Vaginal candidiasis B37.3 Active 33526070 ALLERGIES Substance Reaction Event Type Date Status Simvastatin fatigue Drug Allergy Mar, Active Lovastatin fatigue Drug Allergy Mar, Active ENCOUNTERS Encounter Location Date Diagnosis [facility] [address] [facility] [id number] [place] [id number] Sep, [facility] [address] [id number] [id number] Jul, Hip pain, left M25.552 [facility] [address] [place] [address] AVE [id number], [place] [address] Jul, Metabolic syndrome X E88.81 ; Hip pain, left M25.552 ; Morbid obesity, unspecified obesity type E66.01 and BMI 50.0-59.9, adult Z68.43 [facility] [id number], [place] [id number] Apr, [facility] [address] [id number], [place] [id number] Apr, Lumbago with sciatica, left side M54.42 [facility] [address] [id number], [place] [id number] Apr, [facility] [address] [place] [address] AVE [id number], [place] [address] Mar, Metabolic syndrome X E88.81 ; Anxiety F41.9 ; BMI 45.0-49.9, adult Z68.42 and Encounter for immunization Z23 [facility] [address] [place] [address] AVE [id number], [place] [id number] Jan, Influenza A J10.1 ; BMI 45.0-49.9, adult Z68.42 and External hemorrhoid, bleeding K64.4 [facility] [address] [place] [address] AV [id number], [place] [address] Jan, Colon cancer screening Z12.11 [facility] [address] [id number], [place] [address] Jan, Gynecologic exam normal Z01.419 ; Breast cancer screening Z12.31 ; Colon cancer screening Z12.11 and BMI 50.0-59.9, adult Z68.43 [facility] [address] [id number], [place] [id number] Jan, [facility] [address] [id number], [place] [id number] Jan, [facility] [address] [id number] [place] [id number] Nov, Lumbago with sciatica, left side M54.[address] [facility] [address] [id number] [place] [address] Nov, Lumbago with sciatica, left side M54.[address] [facility] [address] [id number] [place] [address] Sep, Metabolic syndrome X E88.81 ; Anxiety F41.9 and Lumbago with sciatica, left side M54.[address] [facility] [address] [id number] [place] [id number] Sep, [facility] [address] [id number] [place] [id number] Sep, [facility] [address] [id number] [place] [id number] Sep, Lumbago with sciatica, left side M54.[address] [facility] [address] [id number] [place] [id number] Aug, [facility] [id number] [place] [address] Aug, [facility] [id number] [place] [address] Jul, Lumbago with sciatica, left side M54.[address] [facility] [address] [id number] [place] [id number] Jul, Anxiety F41.9 [facility] [address] [id number] [place] [address] Jul, Lumbago with sciatica, left side M54.42 and Anxiety F41.9 [facility] [address] [id number] [place] [id number] May, Lumbago with sciatica, left side M54.42 [facility] [address] [id number], [place] [id number] Feb, Dermatitis L30.9 and Dysuria R30.0 [facility] [address] [id number], [place] [id number] Jan, Vaginal candidiasis B37.3 [facility] [address] [id number], [place] [id number] Dec, [facility] [address] [id number], [place] [address]796[address] Dec, Dyshidrotic eczema L30.1 [facility] [address] [place] [address] AVE [id number], [place] [id number] Nov, [facility] [address] [place] [address] AVE [id number], [place] [id number] Nov, Unexplained endometrial cells on cervical Pap smear R87.618 and Maida-menopausal N95.1 [facility] [address] [place] [address] AVE [id number], [place] 845[address]876 Oct, Well woman exam with routine gynecological exam Z01.419 ; Urinary incontinence, unspecified type R32 ; Breast cancer screening Z12.39 ; Morbid obesity, unspecified obesity type E66.01 and Maida-menopausal N95.1 [facility] [address] [id number], [place] [id number] Sep, Right lateral abdominal pain R10.9 [facility] [employer] [address] [id number], [place] [id number] Aug, Fatigue, unspecified type R53.83 [facility] [address] [id number], [place] [id number] Aug, [facility] [address] [id number], [place] [address]279[address] Jul, Essential (primary) hypertension I10 and Right upper quadrant pain R10.11 [facility] [address] [id number], [place] [id number] Jul, [facility] [address] [id number], [place] [address]502 Jul, Acute pain of right knee M25.561 ; Slow transit constipation K59.01 and Fatty liver K76.0 [facility] [address] [id number], [place] [id number] May, [facility] [address] [id number] [place] [address] Apr, Dental examination Z01.20 [facility] [address] [id number], [place] [address] Apr, Encounter for dental examination Z01.20 and Dental caries, unspecified K02.9 [facility] [address] [id number], [place] [id number] Mar, Encounter for dental examination Z01.20 [facility] [address] [id number], [place] [address] Feb, Encounter for dental examination Z01.20 [facility] [address] [id number], [place] [id number] Jan, [facility] [address] [id number], [place] [address] Jan, Encounter for dental examination Z01.20 [facility] [address] [id number], [place] 607[address]252 Jan, Right upper quadrant abdominal pain R10.11 ; Fatty liver K76.0 ; Constipation, chronic K59.00 and Morbid obesity due to excess calories E66.01 [facility] [address] [id number], [place] [id number] Dec, [facility] [address] [id number], [place] [address] Dec, Fatty liver K76.0 ; Slow transit constipation K59.01 and Hip pain , left M25.552 [facility] [address] [id number], [place] [address] Nov, [facility] [address] [id number], [place] [address] Nov, Essential (primary) hypertension I10 [facility] [address] [facility] [address] [id number] [place] [phone] Oct, [facility] Sam[facility] [address] [id number], [place] [address] Oct, Abdominal pain, right upper quadrant 789.01 ; Constipation 564.00 and Hypertension 401.9 [facility]go [facility] [address] [id number], [place] [id number] Sep, Right upper quadrant abdominal pain 789.01 IMMUNIZATIONS Vaccine Route Administration Date Status FLUARIX QUAD (3 AND UP) 2016 IM Intramuscular Mar 17, 2017 Administered SOCIAL HISTORY Never Assessed REASON FOR VISIT Diabetes bferrisma PLAN OF CARE Activity Details Follow Up 3 Months Reason:chronic pain/anxiety VITAL SIGNS Height 65.25 in 2017-03-17 Weight 300.6 lbs 2017-03-17 Temperature 98.0 degrees Fahrenheit 2017-03-17 Heart Rate 80 bpm 2017-03-17 Respiratory Rate 16 2017-03-17 BMI 49.63 kg/m2 2017-03-17 Blood pressure systolic 128 mmHg 2017-03-17 Blood pressure diastolic 82 mmHg 2017-03-17 MEDICATIONS Medication Instructions Dosage Frequency Start Date End Date Duration Status Lisinopril 2.5 MG TAKE 1 TABLET BY MOUTH ONCE DAILY 90 Active Zyrtec Allergy 10 MG Active Ibuprofen 800 MG TAKE ONE TABLET BY MOUTH THREE TIMES DAILY NEEDED FOR PAIN. 30 Not-Taking Hydrochlorothiazide 12.5 MG TAKE 1 CAPSULE BY MOUTH ONCE DAILY 90 Active Voltaren 1 % Transdermal 4 times a day as directed 6h Dec, Active Albuterol Sulfate (2.5 MG/3ML) 0.083% Inhalation every 6 hrs as needed 3 ml Aug, 30 days Active ProAir HFA 108 (90 Base) MCG/ACT Inhalation every 4 hrs 2 puffs as needed 4h Active Gabapentin 300 MG TAKE ONE CAPSULE BY MOUTH ONCE DAILY AT BEDTIME 90 Active Xenical 120 MG Orally 3 times a day with meals 1 capsule with meals Jan, Active Triamcinolone Acetonide 0.1 % Externally Twice a day 1 application to affected area 12h Dec, 10 days Active Celebrex 200 mg Orally Once a day for pain 1 capsule with food May, Active Promethazine VC/Codeine 6.25-5-10 MG/5ML Orally every 6 hrs 5 ml as needed for congestion and cough 6h Jan, Active Baclofen 20 MG Orally every 8 hrs 1/2 tablet with food or milk as needed 8h May, Active BusPIRone HCl 10 mg Orally Twice a day 1 tablet 12h Jul, Active Ultram 50 mg Orally 2 times a day 1 tablet as needed for severe back pain only Jul, Active RESULTS No Results PROCEDURES Procedure Date Ordered Result Body Site FLUARIX QUAD (3 AND UP) 2016Mar 17, 2017 SINGLE IMMUNIZATION ADMIN Mar 17, 2017 INSTRUCTIONS MEDICATIONS ADMINISTERED No Known Medications [...]
--- OUTSIDE RECORDS SUMMARY | 2018-06-10 17:09 | XMS REPORT ---
Author Author DIANN OROZCO Organization eClinicalWorks Address Unknown Phone Unavailable Care Team Providers Care Computer Artist Name Role Phone DIANN OROZCO CP Unavailable Allergies, Adverse Reactions, Alerts Substance Reaction Event Type N.K.D.A. Info Not Available Non Drug Allergy Problems Problem Type Condition Code Onset Dates Condition Status Assessment Constipation, chronic K59.00 Active Assessment Right upper quadrant abdominal pain R10.11 Active Assessment Fatty liver K76.0 Active Assessment Morbid obesity due to excess calories E66.01 Active Problem Constipation, chronic K59.00 Active Problem Morbid obesity due to excess calories E66.01 Active Problem Right upper quadrant abdominal pain R10.11 Active Problem Hip pain, left M25.552 Active Problem Essential (primary) hypertension I10 Active Problem Fatty liver K76.0 Active Problem Slow transit constipation K59.01 Active Medications Medication Code System Code Instructions Start Date End Date Status Dosage ProAir HFA [facility] [address]-46 108 (90 Base) MCG/ACT Inhalation every 4 hrs 2 puffs as needed Xenical [facility] [address]-82 120 MG Orally 2 times a day Jan 11, 2015 1 capsule with meals Tramadol HCl [facility] [address]-38 50 MG Orally 2 times a day 1 tablet as needed Hydrochlorothiazide [facility] [address]-40 12.5 MG Orally Once a day 1 tablet Colace [facility] [address]-48 100 MG Orally 2 times a day Jan 11, 2015 1 capsule as needed Citalopram Hydrobromide [facility] [address]-09 20 MG Orally Once a day 1 tablet Lisinopril [facility] [address]-09 2.5 MG Orally Once a day 1 tablet Lovastatin [facility] [address]-30 10 MG Orally Once a day Dec 12, 2014 1 tablet with a meal Milk of Magnesia [facility] [address]-42 7.75 % Orally 2 times a day as needed 5 ml as needed Fiber ND 0 Orally not defined Ibuprofen [facility] [address]-54 800 MG Orally Three times a day Dec 12, 2014 1 tablet prn pain Voltaren [facility] [address]-44 1 % Transdermal 4 times a day Dec 12, 2014 as directed Procedures Procedure Coding System Code Date IMMUNOASSAY,INFECTIOUS AGENT CPT-4 67683 Jan 11, 2015 Office Visit, Est Pt., Level 4 CPT-4 31095 Jan 11, 2015 Vital Signs Date/Time: Jan 11, 2015 Temperature 98.5 F Weight 314.2 lbs Height 65.25 in BMI 51.88 Index Blood Pressure Diastolic 74 mmHg Blood Pressure Systolic 120 mmHg Cardiac Monitoring Heart Rate 91 bpm Results Name Result Date Reference Range Unit Abnormality Flag H. PYLORI (IN HOUSE) ----H. PYLORI negative [id number] ----Control positive 20150111 ----Lot # [id number] ----Exp date 20150111 Summary Purpose eClinicalWorks Submission
--- OUTSIDE RECORDS SUMMARY | 2018-06-10 17:09 | XMS REPORT ---
Author Author LUDMILA ZHANG Organization e[employer] Address Unknown Phone Unavailable Care Team Providers Care Correctional Manager Name Role Phone LUDMILA ZHANG CP Unavailable Allergies No Known Allergies Problems Problem Type Condition Code Onset Dates Condition Status Assessment Encounter for dental examination Z01.20 Active Problem Constipation, chronic K59.00 Active Problem Morbid obesity due to excess calories E66.01 Active Problem Right upper quadrant abdominal pain R10.11 Active Problem Hip pain, left M25.552 Active Problem Essential (primary) hypertension I10 Active Problem Fatty liver K76.0 Active Problem Slow transit constipation K59.01 Active Medications No Known Medications Procedures Procedure Coding System Code Date INTRAORL-PERIAPICAL 1 FILM 55776 CPT-4 D0220 Jan 29, 2015 LTD ORAL EVALUATION - PROBLEM FOCUS CPT-4 D0140 Jan 29, 2015 Vital Signs Date/Time: Jan 29, 2015 Blood Pressure Diastolic 80 mmHg Blood Pressure Systolic 134 mmHg Results No Known Results Summary Purpose eClinicalWorks Submission
--- OUTSIDE RECORDS SUMMARY | 2018-06-10 17:09 | XMS REPORT ---
Author Author QUINN ESPARZA [facility] Address Unknown Phone Unavailable Care Team Providers Care Decision Science Analyst Name Role Phone AMARILYSMIRIQUINN Unavailable Unavailable PROBLEMS Type Condition ICD9-CM Code IKC45-CF Code Onset Dates Condition Status SNOMED Code Problem Lumbago with sciatica, left side M54.42 Active 176618777 Problem Metabolic syndrome X E88.81 Active 420822148 Problem Anxiety F41.9 Active 78928966 Problem BMI 45.0-49.9, adult Z68.42 Active 111902813 Problem Essential (primary) hypertension I10 Active 53807004 Problem Influenza A J10.1 Active 195477363 Problem Gynecologic exam normal Z01.419 Active 499542917 Problem Colon cancer screening Z12.11 Active 731596333 Problem External hemorrhoid, bleeding K64.4 Active 89312532 Problem Breast cancer screening Z12.31 Active 958112508 Problem Hip pain, left M25.552 Active 78974702 Problem Right upper quadrant abdominal pain R10.11 Active 596799946 Problem Slow transit constipation K59.01 Active 06658754 Problem Fatty liver K76.0 Active 433938747 Problem Maida-menopausal N95.1 Active 814015151728974 Problem Urinary incontinence, unspecified type R32 Active 017825784 Problem Constipation, chronic K59.00 Active 325593617 Problem Morbid obesity, unspecified obesity type E66.01 Active 108257991 Problem Right lateral abdominal pain R10.9 Active 761022612 Problem Vaginal candidiasis B37.3 Active 13780662 ALLERGIES No Information ENCOUNTERS Encounter Location Date Diagnosis [employer] [address] [id number] [place] [id number] Apr, [address] [id number] [place] [address] Apr, Lumbago with sciatica, left side M54.42 [facility] [address] [id number] [place] [id number] Apr, [facility] [address] [address] [id number] [place] [address] Mar, Metabolic syndrome X E88.81 ; Anxiety F41.9 ; BMI 45.0-49.9, adult Z68.42 and Encounter for immunization Z23 [facility] [address] [id number] [place] [address]77[address]45[address] Jan, Influenza A J10.1 ; BMI 45.0-49.9, adult Z68.42 and External hemorrhoid, bleeding K64.[address] [facility] [address] [id number] [place] 359187852 Jan, Colon cancer screening Z12.11 [facility] [address] [id number] [place] [id number] Jan, Gynecologic exam normal Z01.419 ; Breast cancer screening Z12.31 ; Colon cancer screening Z12.11 and BMI 50.0-59.9, adult Z68.43 [facility] [address] [id number] [place] 74[address] Jan, [facility] [address] [id number] [place], [place] 601[address] Jan, [facility] [address] [id number] [place] 819[address]47[address] Nov, Lumbago with sciatica, left side M54.42 [facility] [address] [id number] [place] [address]37[address]4438 Nov, Lumbago with sciatica, left side M54.42 [facility] [address] [id number] [place] [address] Sep, Metabolic syndrome X E88.81 ; Anxiety F41.9 and Lumbago with sciatica, left side M54.42 [facility] [address] [id number] [place] [address] Sep, [facility] [address] [id number] [place] 72[address] Sep, [facility] [address] [id number] [place] [address] Sep, Lumbago with sciatica, left side M54.42 [facility] [address] [address] [id number] [place] [address] Aug, [facility] [address] [id number] [place] [address] Aug, [facility] [address] [address] [id number] [place] [address] Jul, Lumbago with sciatica, left side M54.42 [facility] [address] [address] [id number] [place] [address] Jul, Anxiety F41.9 [facility] [address] [address] [id number] [place] [id number] Jul, Lumbago with sciatica, left side M54.42 and Anxiety F41.9 [facility] [address] [address] [id number] [place] [address] May, Lumbago with sciatica, left side M54.[address] [facility] [address] [address] [id number] [place] [address]3043 Feb, Dermatitis L30.9 and Dysuria R30.0 [facility] [address] [facility] [address] [id number] [place] [id number] Jan, Vaginal candidiasis B37.3 [facility] [address] [address] [id number] [place] 23[address] Dec, [facility] [address] [address] [id number] [place] [id number] Dec, Dyshidrotic eczema L30.[address] [facility] [address] [address] [id number] [place] [address]74[address] Nov, [facility] [address] [address] [id number] [place] [id number] Nov, Unexplained endometrial cells on cervical Pap smear R87.618 and Maida-menopausal N95.1 [facility] [address] [id number] [place] [address] Oct, Well woman exam with routine gynecological exam Z01.419 ; Urinary incontinence, unspecified type R32 ; Breast cancer screening Z12.39 ; Morbid obesity, unspecified obesity type E66.01 and Madia-menopausal N95.1 [facility] [address] [id number] [place] 143322250 Sep, Right lateral abdominal pain R10.9 [facility] [employer] [address] [id number], [place] [address]32[address] Aug, Fatigue, unspecified type R53.83 [facility] [address] [place] [address] AVE [id number] [place] [id number] Aug, [facility] [address] [id number] [place] [id number] Jul, Essential (primary) hypertension I10 and Right upper quadrant pain R10.11 [facility] [address] [place] [address] AVE [id number] [place] [address]24[address] Jul, [facility] [address] [id number] [place], [place] [address] Jul, Acute pain of right knee M25.561 ; Slow transit constipation K59.01 and Fatty liver K76.0 [facility] [address] [place] [address] A[address] [id number] [place] [address]84 May, [facility] [address] [id number], [place] [address]88[address] Apr, Dental examination Z01.20 [facility] [address] [id number] [place] 7664[address] Apr, Encounter for dental examination Z01.20 and Dental caries, unspecified K02.9 [facility] [address] [id number] [place] 912916382 Mar, Encounter for dental examination Z01.20 [facility] [address] [address] [id number] [place] [id number] Feb, Encounter for dental examination Z01.20 [facility] [address] [id number] [place], [place] [id number] Jan, [facility] [address] [id number] [place] [id number] Jan, Encounter for dental examination Z01.20 [facility] [address] [id number] [place], [place] 378[address] Jan, Right upper quadrant abdominal pain R10.11 ; Fatty liver K76.0 ; Constipation, chronic K59.00 and Morbid obesity due to excess calories E66.01 [facility] [address] [id number] [place], [place] [address] Dec, [facility] [address] [place] [address] AVE [id number] [place] 908848398 Dec, Fatty liver K76.0 ; Slow transit constipation K59.01 and Hip pain , left M25.552 [facility] [address] [id number] [place] [id number] Nov, [facility] [address] [place] [address] AVE [id number] [place] [id number] Nov, Essential (primary) hypertension I10 [facility] [address] [place] [address] AV [id number] [place] [id number] Oct, [facility] [address] [place] [address] A[address] [id number] [place] [address] Oct, Abdominal pain, right upper quadrant 789.01 ; Constipation 564.00 and Hypertension 401.9 [facility] [address] [id number] [place] [address] Sep, Right upper quadrant abdominal pain 789.01 IMMUNIZATIONS No Known Immunizations SOCIAL HISTORY Never Assessed REASON FOR VISIT [facility] Contact PLAN OF CARE Activity Details Follow Up will use if symptoms do not remit Reason:will be determined by patient. VITAL SIGNS MEDICATIONS Unknown Medications RESULTS No [...]
--- OUTSIDE RECORDS SUMMARY | 2018-06-10 17:09 | XMS REPORT ---
Author DONNY Elise [facility] eClinicalWorks Address Unknown Phone Unavailable Care Team Providers Care Customs And Border Protection Officer Name Role Phone DONNY CLAY CP Unavailable Allergies No Known Allergies Problems Problem Type Condition Code Onset Dates Condition Status Problem Essential (primary) hypertension I10 Active Problem Slow transit constipation K59.01 Active Problem Hip pain, left M25.552 Active Assessment Maida-menopausal N95.1 Active Assessment Unexplained endometrial cells on cervical Pap smear R87.618 Active Problem Morbid obesity, unspecified obesity type E66.01 Active Problem Maida-menopausal N95.1 Active Problem Urinary incontinence, unspecified type R32 Active Problem Constipation, chronic K59.00 Active Problem Fatty liver K76.0 Active Problem Right lateral abdominal pain R10.9 Active Problem Right upper quadrant abdominal pain R10.11 Active Medications No Known Medications Results No Known Results Summary Purpose eClinicalWorks Submission
--- OUTSIDE RECORDS SUMMARY | 2018-06-10 17:10 | XMS REPORT ---
Author Author DIANN OROZCO [facility] Address [address] [place] [address] Care Team Providers Care Search Marketing Coordinator Name Role Phone DIANN OROZCO Unavailable PROBLEMS Type Condition ICD9-CM Code [id number] Code Onset Dates Condition Status SNOMED Code Problem Lumbago with sciatica, left side M54.42 Active 079544791 Problem Metabolic syndrome X E88.81 Active 293198732 Problem Anxiety F41.9 Active 46192391 Problem BMI 45.0-49.9, adult Z68.42 Active 833663962 Problem Essential (primary) hypertension I10 Active 56875723 Problem Influenza A J10.1 Active 166765886 Problem Gynecologic exam normal Z01.419 Active 580651326 Problem Colon cancer screening Z12.11 Active 983841078 Problem External hemorrhoid, bleeding K64.4 Active 44198365 Problem Breast cancer screening Z12.31 Active 320071990 Problem Hip pain, left M25.552 Active 90639089 Problem Right upper quadrant abdominal pain R10.11 Active 578879460 Problem Slow transit constipation K59.01 Active 02821155 Problem Fatty liver K76.0 Active 768049015 Problem Maida-menopausal N95.1 Active 967682273349028 Problem Urinary incontinence, unspecified type R32 Active 573140136 Problem Constipation, chronic K59.00 Active 615509859 Problem Morbid obesity, unspecified obesity type E66.01 Active 899236419 Problem Right lateral abdominal pain R10.9 Active 496875162 Problem Vaginal candidiasis B37.3 Active 73809584 ALLERGIES No Information ENCOUNTERS Encounter Location Date Diagnosis [facility] [address] [id number] [place] [id number] Jul, [facility] [address] [id number] [place] [id number] Apr, [facility] [address] [address] [id number], [place] [id number] Apr, Lumbago with sciatica, left side M54.42 [facility] [address] [place] [address] AVE [id number], [place] [id number] Apr, [facility] [address] [place] [address] AVE [id number], [place] [id number] Mar, Metabolic syndrome X E88.81 ; Anxiety F41.9 ; BMI 45.0-49.9, adult Z68.42 and Encounter for immunization Z23 [facility] [employer] [facility] [address] [id number], [place] [id number] Jan, Influenza A J10.1 ; BMI 45.0-49.9, adult Z68.42 and External hemorrhoid, bleeding K64.4 [facility] [employer] [facility] [id number], [place] [id number] Jan, Colon cancer screening Z12.11 [facility] [address] [place] [address] AVE [id number], [place] [id number] Jan, Gynecologic exam normal Z01.419 ; Breast cancer screening Z12.31 ; Colon cancer screening Z12.11 and BMI 50.0-59.9, adult Z68.43 [facility] [address] [place] [address] AVE [id number], [place] [id number] Jan, [facility] [address] [place] [address] A[address] [id number], [place] [id number] Jan, [facility] Labs[facility]IG[facility] [address] [place] [address] A[address] [id number], [place] [id number] Nov, Lumbago with sciatica, left side M54.42 [facility] [address] [place] [address] A[address] [id number], [place] [id number] Nov, Lumbago with sciatica, left side M54.42 [facility] [employer] [address] [id number], [place] [id number] Sep, Metabolic syndrome X E88.81 ; Anxiety F41.9 and Lumbago with sciatica, left side M54.42 [facility] [address] [id number] [place] [id number] Sep, [facility] [address] [id number] [place] [id number] Sep, [facility] [address] [id number] [place] [id number] Sep, Lumbago with sciatica, left side M54.[address] [facility] [address] [id number] [place] [id number] Aug, [facility] [address] [id number] [place] [id number] Aug, [facility] [address] [id number] [id number] Jul, Lumbago with sciatica, left side M54.[address] [facility] [address] [id number] [facility], [place] [id number] Jul, Anxiety F41.[address] [facility] [address] [id number], [place] [id number] Jul, Lumbago with sciatica, left side M54.42 and Anxiety F41.9 [facility] [address] [id number] [facility] [id number] May, Lumbago with sciatica, left side M54.[address] [facility] [address] [id number], [place] [id number] Feb, Dermatitis L30.9 and Dysuria R30.[address] [facility] [address] [id number] [place] [id number] Jan, Vaginal candidiasis B37.[address] [facility] [address] [id number], [place] [id number] Dec, [facility] [address] [id number], [place] 144297513 Dec, Dyshidrotic eczema L30.[address] [facility] [address] [id number], [place] [id number] Nov, [facility] R[address] [facility] [address] [id number], [place] [address] Nov, Unexplained endometrial cells on cervical Pap smear R87.618 and Maida-menopausal N95.1 [facility] RODRIGUEZ [address] [place] [address] AVE [id number], [place] [id number] Oct, Well woman exam with routine gynecological exam Z01.419 ; Urinary incontinence, unspecified type R32 ; Breast cancer screening Z12.39 ; Morbid obesity, unspecified obesity type E66.01 and Maida-menopausal N95.1 [facility] RODRIGUEZ [address] [place] [address] A[address] [id number], [place] [id number] Sep, Right lateral abdominal pain R10.9 [facility] CRISTOPHER [address] [id number], [place] [id number] Aug, Fatigue, unspecified type R53.83 [facility] [address] [id number], [place] [id number] Aug, [facility] [address] [id number], [place] [id number] Jul, Essential (primary) hypertension I10 and Right upper quadrant pain R10.11 [facility] RODRIGUEZ [address] [place] [address] A[address] [id number], [place] [id number] Jul, [facility] [address] [id number], [place] [id number] Jul, Acute pain of right knee M25.561 ; Slow transit constipation K59.01 and Fatty liver K76.[address] [id number], [place] [id number] May, [facility] [address] [id number], [place] [id number] Apr, Dental examination Z01.20 [facility] RODRIGUEZ [address] [place] [address] A[address] [id number], [place] [id number] 03 Apr, 2015 Encounter for dental examination Z01.20 and Dental caries, unspecified K02.9 [facility] [address] [address] [id number], [place] [id number] Mar, Encounter for dental examination Z01.20 [facility] [address] [address] [id number], [place] [id number] Feb, Encounter for dental examination Z01.20 [facility] [address] [address] [id number], [place] [id number] Jan, [facility] [address] [id number], [place] 927042502 Jan, Encounter for dental examination Z01.20 [facility] [address] [id number], [place] 794381655 Jan, Right upper quadrant abdominal pain R10.11 ; Fatty liver K76.0 ; Constipation, chronic K59.00 and Morbid obesity due to excess calories E66.01 [facility] [address] [address] [id number], [place] [id number] Dec, [facility] [address] [id number], [place] [address]972601[address] Dec, Fatty liver K76.0 ; Slow transit constipation K59.01 and Hip pain , left M25.552 [facility] [address] [id number], [place] [id number] Nov, [facility] [address] [id number], [place] [id number] Nov, Essential (primary) hypertension I10 [facility] [address] [address] [id number], [place] [id number] Oct, [facility] [address] [address] [id number], [place] [id number] Oct, Abdominal pain, right upper quadrant 789.01 ; Constipation 564.00 and Hypertension 401.9 [facility] [address] [id number], [place] [id number] Sep, Right upper quadrant abdominal pain 789.01 IMMUNIZATIONS No Known Immunizations SOCIAL HISTORY Never Assessed REASON FOR VISIT Pals Received PLAN OF CARE VITAL SIGNS MEDICATIONS Unknown [...]
--- OUTSIDE RECORDS SUMMARY | 2018-06-10 17:10 | XMS REPORT ---
Author Author [facility]ANN [facility]CO [facility] Address [address] [place] [address] Care Team Providers Care Edi Programmer Analyst Name Role Phone DIANN OROZCO Unavailable PROBLEMS Type Condition ICD9-CM Code [id number] Code Onset Dates Condition Status SNOMED Code Problem Right upper quadrant abdominal pain R10.11 Active 979275175 Problem Maida-menopausal N95.1 Active 145039053486339 Problem Right lateral abdominal pain R10.9 Active 936131161 Problem Metabolic syndrome X E88.81 Active 519754927 Problem Anxiety F41.9 Active 10992063 Problem Urinary incontinence, unspecified type R32 Active 946788137 Problem Morbid obesity, unspecified obesity type E66.01 Active 446954049 Problem Lumbago with sciatica, left side M54.42 Active 894979590 Problem Vaginal candidiasis B37.3 Active 39219517 Problem Hip pain, left M25.552 Active 18532739 Problem Slow transit constipation K59.01 Active 32726031 Problem Fatty liver K76.0 Active 852039540 Problem Essential (primary) hypertension I10 Active 31797353 Problem Constipation, chronic K59.00 Active 889301049 ALLERGIES No Known Allergies SOCIAL HISTORY No smoking Hx information available PLAN OF CARE VITAL SIGNS MEDICATIONS Medication Instructions Dosage Frequency Start Date End Date Duration Status Diflucan 100 MG Orally Once a day 1 tablet 24h Jan, Jan, 03 days Active RESULTS No Results PROCEDURES No Known procedures IMMUNIZATIONS No Known Immunizations
--- OUTSIDE RECORDS SUMMARY | 2018-06-10 17:10 | XMS REPORT ---
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 Name Role Phone DIANN OROZCO Unavailable PROBLEMS Type Condition ICD9-CM Code IRL03-AY Code Onset Dates Condition Status SNOMED Code Problem Lumbago with sciatica, left side M54.42 Active 744983520 Problem Metabolic syndrome X E88.81 Active 089337539 Problem Anxiety F41.9 Active 23542747 Problem BMI 45.0-49.9, adult Z68.42 Active 668991710 Problem Essential (primary) hypertension I10 Active 80103890 Problem Influenza A J10.1 Active 765501497 Problem Gynecologic exam normal Z01.419 Active 973048032 Problem Colon cancer screening Z12.11 Active 728217819 Problem External hemorrhoid, bleeding K64.4 Active 96483930 Problem Breast cancer screening Z12.31 Active 767136736 Problem Hip pain, left M25.552 Active 47294497 Problem Right upper quadrant abdominal pain R10.11 Active 486924315 Problem Slow transit constipation K59.01 Active 61130139 Problem Fatty liver K76.0 Active 321395083 Problem Maida-menopausal N95.1 Active 407286376912339 Problem Urinary incontinence, unspecified type R32 Active 562879491 Problem Constipation, chronic K59.00 Active 726885701 Problem Morbid obesity, unspecified obesity type E66.01 Active 883904870 Problem Right lateral abdominal pain R10.9 Active 254182178 Problem Vaginal candidiasis B37.3 Active 48112749 ALLERGIES Substance Reaction Event Type Date Status Simvastatin fatigue Drug Allergy Sep, Active Lovastatin fatigue Drug Allergy Sep, Active ENCOUNTERS Encounter Location Date [facility] [address] [id number] [place] [id number] Apr, [facility] [address] [address] [id number] [place] [id number] Apr, Lumbago with sciatica, left side M54.42 [facility] [address] [place] [address] AVE [id number], [place] [id number] Apr, [facility] [address] [place] [address] AV [id number], [place] [id number] Mar, Metabolic syndrome X E88.81 ; Anxiety F41.9 ; BMI 45.0-49.9, adult Z68.42 and Encounter for immunization Z23 [facility] [address] [place] [address] AVE [id number], [place] [id number] Jan, Influenza A J10.1 ; BMI 45.0-49.9, adult Z68.42 and External hemorrhoid, bleeding K64.4 [facility] [place] [address] AV [id number], [place] [id number] Jan, Colon cancer screening Z12.11 [facility] [address] [place] [address] AVE [id number], [place] 756222393 Jan, Gynecologic exam normal Z01.419 ; Breast cancer screening Z12.31 ; Colon cancer screening Z12.11 and BMI 50.0-59.9, adult Z68.43 [facility] [place] [address] AVE [id number], [place] [address]4310[address] Jan, [facility] [place] [address] AV [id number], [place] [id number] Jan, [facility] [place] [address] AVE [id number], [place] [id number] Nov, Lumbago with sciatica, left side M54.42 [facility] [address] [place] [address] A[address] [id number], [place] [id number] Nov, Lumbago with sciatica, left side M54.42 [facility] [address] [place] [address] AVE [id number], [place] [id number] Sep, Metabolic syndrome X E88.81 ; Anxiety F41.9 and Lumbago with sciatica, left side M54.42 [facility] [address] [id number] RODRIGUEZ [place] [address] Sep, [facility] [address] [id number] [place] [id number] Sep, [facility] [address] [id number] [place] [id number] Sep, Lumbago with sciatica, left side M54.[address] [facility] [address] [id number] [place] [id number] Aug, [facility] [address] [id number] [place] [id number] Aug, [facility] [address] [id number] [facility] [id number] Jul, Lumbago with sciatica, left side M54.[address] [facility] [address] [id number] VALLEY H[facility], [place] [id number] Jul, Anxiety F41.9 [facility] [address] [id number] VALLEY [facility], [place] [id number] Jul, Lumbago with sciatica, left side M54.42 and Anxiety F41.9 [facility] [address] [id number] VALLEY H[facility], [place] 699367415 May, Lumbago with sciatica, left side M54.[address] [facility] [address] [id number] VALLEY H[facility]PITAL, [place] [id number] Feb, Dermatitis L30.9 and Dysuria R30.[address] [facility] [address] [id number] VALLEY [facility], [place] [id number] Jan, Vaginal candidiasis B37.[address] [facility] [address] [id number] VALLEY [facility], [place] [id number] Dec, [facility] [address] [id number] VALLEY [facility] [id number] Dec, Dyshidrotic eczema L30.[address] [facility] [address] [id number], [place] [id number] Nov, [facility] [address] [id number], [place] 805402239 Nov, Unexplained endometrial cells on cervical Pap smear R87.618 and Maida-menopausal N95.1 [facility] [address] [id number], [place] [id number] Oct, Well woman exam with routine gynecological exam Z01.419 ; Urinary incontinence, unspecified type R32 ; Breast cancer screening Z12.39 ; Morbid obesity, unspecified obesity type E66.01 and Maida-menopausal N95.1 [facility] [address] [id number], [place] [id number] Sep, Right lateral abdominal pain R10.9 [facility] [place] [address] [id number], [place] [address] Aug, Fatigue, unspecified type R53.83 [facility] [address] [id number], [place] [id number] Aug, [facility] [address] [id number], [place] 973014599 Jul, Essential (primary) hypertension I10 and Right upper quadrant pain R10.11 [facility] [address] [address] [id number], [place] [id number] Jul, [facility] [address] [id number], [place] 965378040 Jul, Acute pain of right knee M25.561 ; Slow transit constipation K59.01 and Fatty liver K76.0 [facility] [address] [id number], [place] [id number] May, [facility] [address] [id number][place] [id number] Apr, Dental examination Z01.20 [facility] [address] [id number], [place] 859255926 03 Apr, 2015 Encounter for dental examination Z01.20 and Dental caries, unspecified K02.[address] [facility] [address] [id number], [place] 768[address]10[address] Mar, Encounter for dental examination Z01.20 [facility] [address] [address] [id number], [place] 578136191 Feb, Encounter for dental examination Z01.20 [facility] [address] [address] [id number], [place] [id number] Jan, [facility] [address] [address] [id number], [place] [id number] Jan, Encounter for dental examination Z01.20 [facility] [address] [address] [id number], [place] [id number] Jan, Right upper quadrant abdominal pain R10.11 ; Fatty liver K76.0 ; Constipation, chronic K59.00 and Morbid obesity due to excess calories E66.01 [facility] [address] [id number], [place] 688478787 Dec, [facility] [address] [address] [id number], [place] 520082568 Dec, Fatty liver K76.0 ; Slow transit constipation K59.01 and Hip pain , left M25.552 [facility] [address] [address] [id number], [place] 119853286 Nov, [facility] [address] [address] [id number], [place] [id number] Nov, Essential (primary) hypertension I10 [facility] [address] [id number], [place] [id number] Oct, [facility] [address] [id number], [place] 191639787 Oct, Abdominal pain, right upper quadrant 789.01 ; Constipation 564.00 and Hypertension 401.9 [facility] [address] [address] [id number], [place] 437376367 Sep, Right upper quadrant abdominal pain 789.01 IMMUNIZATIONS No Known Immunizations SOCIAL HISTORY Never Assessed REASON FOR VISIT Anxiety follow up. Shira ROSS PLAN OF CARE Activity Details Follow Up 4 Months Reason:metabolic syndrome VITAL SIGNS Height 65.25 in 2016-09-16 Weight 318.6 lbs 2016-09-16 Temperature 98.1 degrees Fahrenheit 2016-09-16 Heart Rate 85 bpm 2016-09-16 Respiratory Rate 16 2016-09-16 BMI 52.61 kg/m2 2016-09-16 Blood pressure systolic 124 mmHg 2016-09-16 Blood pressure diastolic 78 mmHg 2016-09-16 MEDICATIONS Medication Instructions Dosage Frequency Start Date [...] meals 1 capsule with meals Jan, Active BusPIRone HCl 10 mg Orally Twice a day 1 tablet 12h Jul, Active Baclofen 10 mg Orally every 8 hrs 1 tablet with food or milk as needed 8h May, Active Citalopram Hydrobromide 20 MG TAKE ONE TABLET BY MOUTH DAILY. 90 Active Lisinopril 2.5 MG TAKE ONE TABLET BY MOUTH DAILY. 90 Active Ultram 50 mg Orally 2 times a day 1 tablet as needed for severe back pain only 12h Jul, Active Celebrex 200 mg Orally Once a day for pain 1 capsule with food May, Active Albuterol Sulfate (2.5 MG/3ML) 0.083% Inhalation every 6 hrs as needed 3 ml Aug, 30 days Active Zyrtec Allergy 10 MG Active Gabapentin 300 MG Orally at bedtime 1 capsule Active ProAir HFA 108 (90 Base) MCG/ACT Inhalation every 4 hrs 2 puffs as needed 4h Active RESULTS No Results PROCEDURES Procedure Date Ordered Result Body Site GLYCATED HEMOGLOBIN TEST Sep 16, 2016 INSTRUCTIONS MEDICATIONS ADMINISTERED No Known Medications MEDICAL [...]
--- OUTSIDE RECORDS SUMMARY | 2018-06-10 17:10 | XMS REPORT ---
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 Name Role Phone DIANN OROZCO Unavailable PROBLEMS Type Condition ICD9-CM Code ELW98-CF Code Onset Dates Condition Status SNOMED Code Problem Lumbago with sciatica, left side M54.42 Active 136598487 Problem Metabolic syndrome X E88.81 Active 488867871 Problem Anxiety F41.9 Active 30132732 Problem BMI 45.0-49.9, adult Z68.42 Active 241287619 Problem Essential (primary) hypertension I10 Active 30389531 Problem Influenza A J10.1 Active 198665631 Problem Gynecologic exam normal Z01.419 Active 171377915 Problem Colon cancer screening Z12.11 Active 984966528 Problem External hemorrhoid, bleeding K64.4 Active 39858545 Problem Breast cancer screening Z12.31 Active 868831955 Problem Hip pain, left M25.552 Active 70304885 Problem Right upper quadrant abdominal pain R10.11 Active 680343020 Problem Slow transit constipation K59.01 Active 83978419 Problem Fatty liver K76.0 Active 562123194 Problem Maida-menopausal N95.1 Active 168959397678177 Problem Urinary incontinence, unspecified type R32 Active 982346741 Problem Constipation, chronic K59.00 Active 138085232 Problem Morbid obesity, unspecified obesity type E66.01 Active 483891127 Problem Right lateral abdominal pain R10.9 Active 786169405 Problem Vaginal candidiasis B37.3 Active 77335894 ALLERGIES No Information ENCOUNTERS Encounter Location Date Diagnosis [facility] [address] [id number] [place] [id number] Apr, [facility] [address] [id number] [place] [id number] Apr, Lumbago with sciatica, left side M54.[address] [facility] [address] [id number], [place] [id number] Apr, [facility] [address] [place] [address] AVE [id number], [place] [id number] Mar, Metabolic syndrome X E88.81 ; Anxiety F41.9 ; BMI 45.0-49.9, adult Z68.42 and Encounter for immunization Z23 [facility] ROD[facility]IG[facility] [place] [address] AVE [id number], [place] [id number] Jan, Influenza A J10.1 ; BMI 45.0-49.9, adult Z68.42 and External hemorrhoid, bleeding K64.4 [facility] [address] [id number], [place] [id number] Jan, Colon cancer screening Z12.11 [facility] R[facility] [address] [place] [address] AVE [id number], [place] [id number] Jan, Gynecologic exam normal Z01.419 ; Breast cancer screening Z12.31 ; Colon cancer screening Z12.11 and BMI 50.0-59.9, adult Z68.43 [facility] R[facility]IG[facility] [address] [facility] [address] [id number], [place] [id number] Jan, [facility] RODIRGUEZ [address] [place] [address] AVE [id number], [place] [id number] Jan, [facility] R[facility]IG[facility] [place] [address] AVE [id number], [place] [id number] Nov, Lumbago with sciatica, left side M54.42 [facility] [address] [id number], [place] [id number] Nov, Lumbago with sciatica, left side M54.42 [facility] [address] [id number], [place] [address] Sep, Metabolic syndrome X E88.81 ; Anxiety F41.9 and Lumbago with sciatica, left side M54.42 [facility] [address] [id number], [place] [id number] Sep, [facility] [address] [id number] [place] [id number] Sep, [facility] [address] [id number] [place] [id number] Sep, Lumbago with sciatica, left side M54.[address] [facility] [address] [id number] [place] [id number] Aug, [facility] [address] [id number] [place] [id number] Aug, [facility] [address] [id number] [place] [address] Jul, Lumbago with sciatica, left side M54.[address] [facility] [address] [id number] [place] [id number] Jul, Anxiety F41.[address] [facility] [address] [id number] [place] [id number] Jul, Lumbago with sciatica, left side M54.42 and Anxiety F41.9 [facility] [address] [id number]'S [facility] [id number] May, Lumbago with sciatica, left side M54.[address] [facility] [address] [id number]'S [facility] [id number] Feb, Dermatitis L30.9 and Dysuria R30.[address] [facility] [address] [id number], [place] [id number] Jan, Vaginal candidiasis B37.[address] [facility] [address] [id number] [place] [id number] Dec, [facility] [address] [id number]'S [facility]OS[facility], [place] [address] Dec, Dyshidrotic eczema L30.[address] [facility] [address] [id number] [place] [id number] Nov, [facility] [address] [id number], [place] [id number] 13 Nov, 2015 Unexplained endometrial cells on cervical Pap smear R87.618 and Maida-menopausal N95.1 [facility] [address] [id number], [place] [id number] 28 Oct, 2015 Well woman exam with routine gynecological exam Z01.419 ; Urinary incontinence, unspecified type R32 ; Breast cancer screening Z12.39 ; Morbid obesity, unspecified obesity type E66.01 and Maida-menopausal N95.1 [facility] [address] [id number], [place] [id number] Sep, Right lateral abdominal pain R10.9 [facility] CRISTOPHER [address] [id number], [place] [id number] Aug, Fatigue, unspecified type R53.83 [facility] [address] [id number], [place] [id number] Aug, [facility] MILLARDRODRIGUEZ[address] [id number], [place] [address] Jul, Essential (primary) hypertension I10 and Right upper quadrant pain R10.11 [facility] [address] [id number], [place] [id number] Jul, [facility] MILLARDRODRIGUEZ[address] [id number], [place] [id number] Jul, Acute pain of right knee M25.561 ; Slow transit constipation K59.01 and Fatty liver K76.0 [facility] [address] [id number], [place] [id number] May, [facility] [address] [id number], [place] [id number] Apr, Dental examination Z01.20 [facility] [address] [id number], [place] [id number] 03 Apr, 2015 Encounter for dental examination Z01.20 and Dental caries, unspecified K02.9 [facility] [address] [id number], [place] [id number] Mar, Encounter for dental examination Z01.20 [facility] [address] [id number], [place] [id number] Feb, Encounter for dental examination Z01.20 [facility] [address] [id number], [place] [id number] Jan, [facility] [address] [id number], [place] [id number] Jan, Encounter for dental examination Z01.20 [facility] [address] [id number], [place] [id number] Jan, Right upper quadrant abdominal pain R10.11 ; Fatty liver K76.0 ; Constipation, chronic K59.00 and Morbid obesity due to excess calories E66.01 [facility] [address] [id number], [place] [id number] Dec, [facility] MICHA[address] [id number], [place] [id number] Dec, Fatty liver K76.0 ; Slow transit constipation K59.01 and Hip pain , left M25.552 [facility] [address] [facility] [address] [id number], [place] [id number] Nov, [facility] [address] [id number], [place] [id number] Nov, Essential (primary) hypertension I10 [facility] [address] [id number], [place] [id number] Oct, [facility] [address] [id number], [place] [address] Oct, Abdominal pain, right upper quadrant 789.01 ; Constipation 564.00 and Hypertension 401.9 [facility] [address] [id number], [place] [address] Sep, Right upper quadrant abdominal pain 789.01 IMMUNIZATIONS No Known Immunizations SOCIAL HISTORY Never Assessed REASON FOR VISIT PALS Received PLAN OF CARE VITAL SIGNS MEDICATIONS [...]
--- OUTSIDE RECORDS SUMMARY | 2018-06-10 17:10 | XMS REPORT ---
Author Author DOMINIC KOTHARI [facility] RODRIGUEZ Address [address] [place] [address] Care Team Providers Care Team Psychologist Name Role Phone TAYE DOMINIC Unavailable PROBLEMS Type Condition ICD9-CM Code RCO61-LU Code Onset Dates Condition Status SNOMED Code Problem Lumbago with sciatica, left side M54.42 Active 179676508 Problem Metabolic syndrome X E88.81 Active 820511393 Problem Anxiety F41.9 Active 95257223 Problem BMI 45.0-49.9, adult Z68.42 Active 106497812 Problem Essential (primary) hypertension I10 Active 53821620 Problem Influenza A J10.1 Active 047929970 Problem Gynecologic exam normal Z01.419 Active 633459930 Problem Colon cancer screening Z12.11 Active 975987030 Problem External hemorrhoid, bleeding K64.4 Active 00321954 Problem Breast cancer screening Z12.31 Active 176796518 Problem Hip pain, left M25.552 Active 55192365 Problem Right upper quadrant abdominal pain R10.11 Active 168659734 Problem Slow transit constipation K59.01 Active 77538672 Problem Fatty liver K76.0 Active 835261920 Problem Maida-menopausal N95.1 Active 282427016687461 Problem Urinary incontinence, unspecified type R32 Active 588084807 Problem Constipation, chronic K59.00 Active 425364932 Problem Morbid obesity, unspecified obesity type E66.01 Active 659644354 Problem Right lateral abdominal pain R10.9 Active 376182721 Problem Vaginal candidiasis B37.3 Active 06860051 ALLERGIES No Information ENCOUNTERS Encounter Location Date Diagnosis [facility] [address] [id number] [place] [id number] Jul, [facility] [address] [address] [id number] [place] [address] Apr, [facility] [address] [id number] [place], [place] [id number] Apr, Lumbago with sciatica, left side M54.42 [facility] [id number] [place], [place] [id number] Apr, [facility] R[facility]IG[facility] [employer] [place] [address] AVE [id number] [place]YS, [place] [address]693[address] Mar, Metabolic syndrome X E88.81 ; Anxiety F41.9 ; BMI 45.0-49.9, adult Z68.42 and Encounter for immunization Z23 [facility] [address] [id number] [place], [place] [address]15[address] Jan, Influenza A J10.1 ; BMI 45.0-49.9, adult Z68.42 and External hemorrhoid, bleeding K64.4 [facility] OpticsK [address] [id number] [place] [address] Jan, Colon cancer screening Z12.11 [facility] R[facility] [employer] [place] [address] AVE [id number] [place], [place] [address]677[address] Jan, Gynecologic exam normal Z01.419 ; Breast cancer screening Z12.31 ; Colon cancer screening Z12.11 and BMI 50.0-59.9, adult Z68.43 [facility] [id number] [place] [id number] Jan, [facility] R[facility]RIGUEZ [employer] [place] [address] AVE [id number] [place] [id number] Jan, [facility] R[facility] [employer] [place] [address] AVE [id number] [place] [address]23[address] Nov, Lumbago with sciatica, left side M54.42 [facility] [address] [id number] [place], [place] 480656[address] Nov, Lumbago with sciatica, left side M54.42 [facility] [address] [id number] [place] 114[address]12[address] Sep, Metabolic syndrome X E88.81 ; Anxiety F41.9 and Lumbago with sciatica, left side M54.42 [facility] [address] [id number] [place] [id number] Sep, [facility] [address] [id number] [place] [id number] Sep, [facility] [address] [id number] [place] [id number] Sep, Lumbago with sciatica, left side M54.[address] [facility] [address] [id number] [place] [id number] Aug, [facility] [address] [id number] [place] [id number] Aug, [facility] [address] [id number]. THOMAS [facility] [id number] Jul, Lumbago with sciatica, left side M54.[address] [facility] [address] [id number]. [facility]OMAS [facility] [id number] Jul, Anxiety F41.9 [facility] [address] [id number]. THOMAS [facility]PITAL[place] [id number] Jul, Lumbago with sciatica, left side M54.42 and Anxiety F41.[address] [facility] [address] [id number]. THOMAS [facility] [id number] May, Lumbago with sciatica, left side M54.[address] [facility] [address] [id number] [place] [id number] Feb, Dermatitis L30.9 and Dysuria R30.[address] [facility] [address] [id number] [place] 069485063 Jan, Vaginal candidiasis B37.[address] [facility] [address] [id number]. THOMAS [facility] [address] Dec, [facility] [address] [id number]. THOMAS [facility] [id number] Dec, Dyshidrotic eczema L30.[address] [facility] [address] [id number] [place], [place] [id number] Nov, [facility] R[address]IGUEZ [address] [facility] [address] [id number] [place], [place] 538[address] Nov, Unexplained endometrial cells on cervical Pap smear R87.618 and Maida-menopausal N95.1 [facility] RODRIGUEZ [address] [place] [address] AVE [id number] [place] [address]1632344 Oct, Well woman exam with routine gynecological exam Z01.419 ; Urinary incontinence, unspecified type R32 ; Breast cancer screening Z12.39 ; Morbid obesity, unspecified obesity type E66.01 and Maida-menopausal N95.1 [facility] R[address]IG[address] [id number] [place] [address] Sep, Right lateral abdominal pain R10.9 [facility] [address] [id number] [place]NA[place] [address] Aug, Fatigue, unspecified type R53.83 [facility] R[address] [id number] [place] [id number] Aug, [facility] R[address]RIG[address] [id number] [place] 333[address]323 Jul, Essential (primary) hypertension I10 and Right upper quadrant pain R10.11 [facility] R[address] [id number] [place] [id number] Jul, [facility] R[address]IG[address] [id number] [place] [address] Jul, Acute pain of right knee M25.561 ; Slow transit constipation K59.01 and Fatty liver K76.[address] [id number] [place], [place] 616217[address] May, [facility] [address] [id number] [place], [place] 537020[address] Apr, Dental examination Z01.20 [facility] R[address] [id number] [place], [place] [address] 03 Apr, 2015 Encounter for dental examination Z01.20 and Dental caries, unspecified K02.9 [facility] [address] [id number] [place], [place] [id number] Mar, Encounter for dental examination Z01.20 [facility] [address] [id number] [place] 481379359 Feb, Encounter for dental examination Z01.20 [facility] [address] [id number] [place] [address]296[address] Jan, [facility] [address] [id number] [place] 620[address]42[address] Jan, Encounter for dental examination Z01.20 [facility] [address] [id number] [place], [place] 687943422 Jan, Right upper quadrant abdominal pain R10.11 ; Fatty liver K76.0 ; Constipation, chronic K59.00 and Morbid obesity due to excess calories E66.01 [facility] [address] [id number] [place] 6625[address] Dec, [facility] [address] [id number] [place], [place] 2834845[address] Dec, Fatty liver K76.0 ; Slow transit constipation K59.01 and Hip pain , left M25.552 [facility] [address] [id number] [place], [place] 51875[address] Nov, [facility] [address] [id number] [place] [id number] Nov, Essential (primary) hypertension I10 [facility] [address] [id number] [place], [place] 759695[address] Oct, [facility] [address] [id number] [place] [address]65575[address] Oct, Abdominal pain, right upper quadrant 789.01 ; Constipation 564.00 and Hypertension 401.9 [facility] [address] [id number] [place], [place] 611509632 Sep, Right upper quadrant abdominal pain 789.01 IMMUNIZATIONS No Known Immunizations SOCIAL HISTORY Never Assessed REASON FOR VISIT stool sample bferrisma PLAN OF CARE VITAL SIGNS MEDICATIONS Unknown Medications RESULTS Name Result Date Reference Range HEMOCCULT (IN HOUSE) 2017-01-26 RESULTS POSITIVE Control POSITIVE Lot # [id number] Exp date 04/2018 HEMOCCULT (IN HOUSE)-Additional* 2017-01-26 RESULTS NEGATIVE Control POSITIVE Lot # [id number] Exp Date 04/2018 PROCEDURES Procedure Date Ordered Result Body Site TEST FOR BLOOD, FECES Jan 26, 2017 INSTRUCTIONS MEDICATIONS ADMINISTERED No Known Medications [...]
--- OUTSIDE RECORDS SUMMARY | 2018-06-10 17:11 | XMS REPORT ---
Author Author DONNY CLAY Organization [employer] Address Unknown Phone Unavailable Care Team Providers Care Principal Software Architect Name Role Phone DONNY CLAY CP Unavailable Allergies No Known Allergies Problems Problem Type Condition Code Onset Dates Condition Status Problem Essential (primary) hypertension I10 Active Problem Slow transit constipation K59.01 Active Problem Hip pain, left M25.552 Active Problem Morbid obesity, unspecified obesity type [...]
--- OUTSIDE RECORDS SUMMARY | 2018-06-10 17:11 | XMS REPORT ---
Author Author DIANN OROZCO [facility] Address [address] [place] [address] Care Team Providers Care Tapper Operator Name Role Phone DIANN OROZCO Unavailable PROBLEMS Type Condition ICD9-CM Code [id number] Code Onset Dates Condition Status SNOMED Code Problem Lumbago with sciatica, left side M54.42 Active 910310143 Problem Metabolic syndrome X E88.81 Active 579048701 Problem Anxiety F41.9 Active 50896262 Problem BMI 45.0-49.9, adult Z68.42 Active 975235604 Problem Essential (primary) hypertension I10 Active 69297146 Problem Influenza A J10.1 Active 975143706 Problem Gynecologic exam normal Z01.419 Active 442490222 Problem Colon cancer screening Z12.11 Active 460334969 Problem External hemorrhoid, bleeding K64.4 Active 45739499 Problem Breast cancer screening Z12.31 Active 593312515 Problem Hip pain, left M25.552 Active 75802628 Problem Right upper quadrant abdominal pain R10.11 Active 329436299 Problem Slow transit constipation K59.01 Active 64619907 Problem Fatty liver K76.0 Active 020905963 Problem Maida-menopausal N95.1 Active 299643641848651 Problem Urinary incontinence, unspecified type R32 Active 659571384 Problem Constipation, chronic K59.00 Active 940179589 Problem Morbid obesity, unspecified obesity type E66.01 Active 322541913 Problem Right lateral abdominal pain R10.9 Active 671911829 Problem Vaginal candidiasis B37.3 Active 33034271 ALLERGIES No Information ENCOUNTERS Encounter Location Date Diagnosis [facility] [address] [address] [id number] [place] [id number] Apr, [facility] [address] [id number] [place] [address] Apr, Lumbago with sciatica, left side M54.[address] [facility] [address] [id number], [place] [id number] Apr, [facility] [address] [place] [address] AVE [id number], [place] [address] Mar, Metabolic syndrome X E88.81 ; Anxiety F41.9 ; BMI 45.0-49.9, adult Z68.42 and Encounter for immunization Z23 [facility] [address] [place] [address] AVE [id number], [place] [id number] Jan, Influenza A J10.1 ; BMI 45.0-49.9, adult Z68.42 and External hemorrhoid, bleeding K64.4 [facility] [address] [address] [id number], [place] [address]2544[address] Jan, Colon cancer screening Z12.11 [facility] [address] [place] [address] AVE [id number], [place] [address]604088 Jan, Gynecologic exam normal Z01.419 ; Breast cancer screening Z12.31 ; Colon cancer screening Z12.11 and BMI 50.0-59.9, adult Z68.43 [facility] [address] [facility] [address] [id number], [place] [id number] Jan, [facility] [address] [place] [address] AVE [id number], [place] [id number] Jan, [facility] [address] [place] [address] AVE [id number], [place] [id number] Nov, Lumbago with sciatica, left side M54.42 [facility] [address] [id number], [place] [address] Nov, Lumbago with sciatica, left side M54.42 [facility] [address] [address] [id number], [place] [id number] Sep, Metabolic syndrome X E88.81 ; Anxiety F41.9 and Lumbago with sciatica, left side M54.42 [facility] [address] [id number], [place] [address] Sep, [facility] [address] [id number] [place] [id number] Sep, [facility] [address] [id number] [place] [id number] Sep, Lumbago with sciatica, left side M54.[address] [facility] [address] [id number] [place] [id number] Aug, [facility] [address] [id number] [place] [address] Aug, [facility] [address] [id number] [place] [address] Jul, Lumbago with sciatica, left side M54.[address] [facility] [address] [id number] [place] [address] Jul, Anxiety F41.[address] [facility] [address] [id number]. [facility]ANC[facility] [id number] Jul, Lumbago with sciatica, left side M54.42 and Anxiety F41.9 [facility] [address] [id number]. FRANCIS [facility] [id number] May, Lumbago with sciatica, left side M54.[address] [facility] [address] [id number]. FRANCIS [facility] [id number] Feb, Dermatitis L30.9 and Dysuria R30.[address] [facility] [address] [id number], [place] [id number] Jan, Vaginal candidiasis B37.[address] [facility] [address] [id number] [place] [id number] Dec, [facility] [address] [id number]. FRANCIS [facility] [id number] Dec, Dyshidrotic eczema L30.[address] [facility] [address] [id number] [place] [address] Nov, [facility] [address] [id number], [place] [id number] 13 Nov, 2015 Unexplained endometrial cells on cervical Pap smear R87.618 and Maida-menopausal N95.1 [facility] [address] [id number], [place] [id number] 28 Oct, 2015 Well woman exam with routine gynecological exam Z01.419 ; Urinary incontinence, unspecified type R32 ; Breast cancer screening Z12.39 ; Morbid obesity, unspecified obesity type E66.01 and Maida-menopausal N95.1 [facility] [address] [id number], [place] [address] Sep, Right lateral abdominal pain R10.9 [facility] CRISTOPHER [address] [id number], [place] [id number] Aug, Fatigue, unspecified type R53.83 [facility] [address] [id number], [place] [id number] Aug, [facility] [address] [id number], [place] [address] Jul, Essential (primary) hypertension I10 and Right upper quadrant pain R10.11 [facility] [address] [id number], [place] [address] Jul, [facility] M[address]DRODR[address] [id number], [place] [address] Jul, Acute pain of right knee M25.561 ; Slow transit constipation K59.01 and Fatty liver K76.0 [facility] [address] [id number], [place] [id number] May, [facility] [address] [id number], [place] [id number] Apr, Dental examination Z01.20 [facility] [address] [id number], [place] [id number] 03 Apr, 2015 Encounter for dental examination Z01.20 and Dental caries, unspecified K02.9 [facility] [address] [id number], [place] [id number] Mar, Encounter for dental examination Z01.20 [facility] [address] [id number], [place] [id number] Feb, Encounter for dental examination Z01.[address] [address] [id number], [place] [id number] Jan, [facility] [address] [id number], [place] [id number] Jan, Encounter for dental examination Z01.20 [facility] [address] [id number], [place] [address]237558[address] Jan, Right upper quadrant abdominal pain R10.11 ; Fatty liver K76.0 ; Constipation, chronic K59.00 and Morbid obesity due to excess calories E66.01 [facility] [address] [id number], [place] [id number] Dec, [facility] [address] [id number], [place] [id number] Dec, Fatty liver K76.0 ; Slow transit constipation K59.01 and Hip pain , left M25.552 [facility] [address] [id number], [place] [address] Nov, [facility] [address] [id number], [place] [address] Nov, Essential (primary) hypertension I10 [facility] [address] [id number], [place] [address] Oct, [facility] [id number], [place] 688443866 Oct, Abdominal pain, right upper quadrant 789.01 ; Constipation 564.00 and Hypertension 401.9 [facility] [id number], [place] [address] Sep, Right upper quadrant abdominal pain 789.01 IMMUNIZATIONS No Known Immunizations SOCIAL HISTORY Never Assessed REASON FOR VISIT Lab (walk-in) Shira ROSS PLAN OF CARE VITAL SIGNS MEDICATIONS Unknown Medications RESULTS No Results PROCEDURES Procedure Date Ordered Result Body Site ASSAY THYROID STIM HORMONE Sep 12, 2016 ASSAY OF FREE THYROXINE Sep 12, 2016 COMPREHEN METABOLIC PANEL Sep 12, 2016 LIPID PANEL Sep 12, 2016 VENIPUNCT, ROUTINE* Sep 12, 2016 COMPLETE CBC W/AUTO DIFF WBC Sep 12, 2016 INSTRUCTIONS MEDICATIONS ADMINISTERED No Known Medications [...]
--- OUTSIDE RECORDS SUMMARY | 2018-06-10 17:11 | XMS REPORT ---
Author Author [facility]ANN [facility]ZCO [facility] Address [address] [place] [address] Care Team Providers Care Beef Selector Name Role Phone DIANN OROZCO Unavailable PROBLEMS Type Condition ICD9-CM Code [id number] Code Onset Dates Condition Status SNOMED Code Problem Constipation, chronic K59.00 Active 556376288 Problem Maida-menopausal N95.1 Active 974365690369560 Problem Right lateral abdominal pain R10.9 Active 128230450 Problem Metabolic syndrome X E88.81 Active 005173282 Problem Anxiety F41.9 Active 79646424 Problem Morbid obesity, unspecified obesity type E66.01 Active 842583332 Problem Urinary incontinence, unspecified type R32 Active 537111510 Problem Lumbago with sciatica, left side M54.42 Active 842983376 Problem Vaginal candidiasis B37.3 Active 94712957 Problem Slow transit constipation K59.01 Active 24031551 Problem Fatty liver K76.0 Active 173991231 Problem Hip pain, left M25.552 Active 07313130 Problem Essential (primary) hypertension I10 Active 71219408 Problem Right upper quadrant abdominal pain R10.11 Active 976431600 ALLERGIES Substance Reaction Event Type Date Status Simvastatin fatigue Drug Allergy Jul, Active Lovastatin fatigue Drug Allergy Jul, Active SOCIAL HISTORY Never Assessed PLAN OF CARE Activity Details Follow Up 6 Weeks Reason:anxiety VITAL SIGNS Height 65.25 in 2016-07-15 Weight 323.6 lbs 2016-07-15 Temperature 98.2 degrees Fahrenheit 2016-07-15 Heart Rate 88 bpm 2016-07-15 Respiratory Rate 16 2016-07-15 BMI 53.43 kg/m2 2016-07-15 Blood pressure systolic 120 mmHg 2016-07-15 Blood pressure diastolic 78 mmHg 2016-07-15 MEDICATIONS Medication Instructions Dosage Frequency Start Date End Date Duration Status ProAir HFA 108 (90 Base) MCG/ACT Inhalation every 4 hrs 2 puffs as needed 4h Active Lisinopril 2.5 MG TAKE ONE TABLET BY MOUTH DAILY. 90 Active Gabapentin 300 MG Orally at bedtime 1 capsule May, Active Baclofen 10 mg Orally every 8 hrs 1 tablet with food or milk as needed 8h May, Active Triamcinolone Acetonide 0.1 % Externally Twice a day 1 application to affected area Dec, 10 days Active Ibuprofen 800 MG TAKE ONE TABLET BY MOUTH THREE TIMES DAILY NEEDED FOR PAIN. 30 Active Ultram 50 mg Orally 2 times a day 1 tablet as needed for severe back pain only Jul, Active Zyrtec Allergy 10 MG Active BusPIRone HCl 10 mg Orally Twice a day 1 tablet as needed for anxiety Jul, Active Xenical 120 MG Orally 3 times a day with meals 1 capsule with meals Jan, Active Hydrochlorothiazide 12.5 MG TAKE ONE CAPSULE BY MOUTH ONCE DAILY 90 Active Voltaren 1 % Transdermal 4 times a day as directed 6h Dec, Active Citalopram Hydrobromide 20 MG TAKE ONE TABLET BY MOUTH DAILY. 90 Active RESULTS No Results PROCEDURES No Known procedures IMMUNIZATIONS No Known Immunizations MEDICAL (GENERAL) HISTORY Type Description Date Medical History hypertension Medical History anxiety Medical History asthma Medical History obesity Medical History constipation Medical History fatty liver disease Medical History CT of the abdomen showing fatty liver disease and mild spleenomeagly Medical History high blood pressure Surgical History left hip repair age 11 Surgical History section 1994 Surgical History bowel surgery 1996 Surgical History fatty tumor abdomen 1999 Surgical History Colonscopy Normal 11/2015 Hospitalization History Surgery(s)/Childbirth(s)
--- OUTSIDE RECORDS SUMMARY | 2018-06-10 17:11 | XMS REPORT ---
Author Author LUDMILA ZHANG Organization [employer] Address Unknown Phone Unavailable Care Team Providers Care Victims Advocate Clerk/Specialist Name Role Phone LUDMILA ZHAGN CP Unavailable Allergies No Known Allergies Problems [...] Medications Procedures Procedure Coding System Code Date Billing Notes on claim CPT-4 EC109 Feb 15, 2015 Dental no charge CPT-4 D0099 Feb 15, 2015 Results No Known Results Summary Purpose [employer] Submission
--- OUTSIDE RECORDS SUMMARY | 2018-06-10 17:11 | XMS REPORT ---
Author Author CHITRAREYNA DIANN [facility] Address [address] [place] [address] Care Team Providers Care Staff Pharmacist Hospital Name Role Phone DIANN OROZCO Unavailable PROBLEMS Type Condition ICD9-CM Code [id number] Code Onset Dates Condition Status SNOMED Code Problem Lumbago with sciatica, left side M54.42 Active 691138013 Problem Metabolic syndrome X E88.81 Active 732107153 Problem Anxiety F41.9 Active 63535128 Problem BMI 45.0-49.9, adult Z68.42 Active 252321772 Problem Essential (primary) hypertension I10 Active 05014887 Problem Influenza A J10.1 Active 442282745 Problem Gynecologic exam normal Z01.419 Active 799905135 Problem Colon cancer screening Z12.11 Active 988886925 Problem External hemorrhoid, bleeding K64.4 Active 39830785 Problem Breast cancer screening Z12.31 Active 649491881 Problem Hip pain, left M25.552 Active 31652394 Problem Right upper quadrant abdominal pain R10.11 Active 555001872 Problem Slow transit constipation K59.01 Active 70064983 Problem Fatty liver K76.0 Active 756134777 Problem Maida-menopausal N95.1 Active 291513293839252 Problem Urinary incontinence, unspecified type R32 Active 556432886 Problem Constipation, chronic K59.00 Active 884758893 Problem Morbid obesity, unspecified obesity type E66.01 Active 313121399 Problem Right lateral abdominal pain R10.9 Active 777820189 Problem Vaginal candidiasis B37.3 Active 28350132 ALLERGIES Substance Reaction Event Type Date Status Simvastatin fatigue Drug Allergy Jan, Active Lovastatin fatigue Drug Allergy Jan, Active ENCOUNTERS Encounter Location Date [facility] [address] [id number] [place] [id number] Jul, [facility] [address] [address] [id number] [place] [id number] Apr, [facility] [address] [id number] [place] [id number] Apr, Lumbago with sciatica, left side M54.[address] [facility] [address] [id number], [place] [id number] Apr, [facility] [address] [place] [address] AVE [id number], [place] [id number] Mar, Metabolic syndrome X E88.81 ; Anxiety F41.9 ; BMI 45.0-49.9, adult Z68.42 and Encounter for immunization Z23 [facility] [address] [id number], [place] [address] Jan, Influenza A J10.1 ; BMI 45.0-49.9, adult Z68.42 and External hemorrhoid, bleeding K64.4 [facility] [address] [id number], [place] [address] Jan, Colon cancer screening Z12.11 [facility] [address] [id number], [place] [address] Jan, Gynecologic exam normal Z01.419 ; Breast cancer screening Z12.31 ; Colon cancer screening Z12.11 and BMI 50.0-59.9, adult Z68.43 [facility] [address] [id number], [place] [id number] Jan, [facility] [address] [id number], [place] [id number] Jan, [facility] [address] [id number], [place] [address]65[address] Nov, Lumbago with sciatica, left side M54.42 [facility] [address] [address] [id number], [place] [id number] Nov, Lumbago with sciatica, left side M54.42 [facility] [address] [id number], [place] [id number] 08 Aug, 2017 Metabolic syndrome X E88.81 ; Anxiety F41.9 and Lumbago with sciatica, left side M54.[address] [facility] [address] [id number] [place] [address] Sep, [facility] [address] [id number] [place] [address] Sep, [facility] [address] [id number] [place] [address] Sep, Lumbago with sciatica, left side M54.[address] [facility] [address] [id number] [place] [address] Aug, [facility] [address] [id number] [facility] [address] Aug, [facility] [address] [id number] [facility] [address] Jul, Lumbago with sciatica, left side M54.[address] [facility] [address] [id number], [place] [address]10044[address] Jul, Anxiety F41.9 [facility] [address] [id number] [facility] [address] Jul, Lumbago with sciatica, left side M54.42 and Anxiety F41.9 [facility] [address] [id number] [facility] [address] May, Lumbago with sciatica, left side M54.[address] [facility] [address] [id number], [place] [address]27[address] Feb, Dermatitis L30.9 and Dysuria R30.[address] [facility] [address] [id number] [facility] [address] Jan, Vaginal candidiasis B37.[address] [facility] [address] [id number], [place] [id number] Dec, [facility] [address] [id number], [place] 969684413 Dec, Dyshidrotic eczema L30.1 [facility] [address] [id number], [place] [id number] Nov, [facility] [address] [id number], [place] [address] Nov, Unexplained endometrial cells on cervical Pap smear R87.618 and Maida-menopausal N95.[address] [id number], [place] [address] Oct, Well woman exam with routine gynecological exam Z01.419 ; Urinary incontinence, unspecified type R32 ; Breast cancer screening Z12.39 ; Morbid obesity, unspecified obesity type E66.01 and Maida-menopausal N95.[address] [id number], [place] [address]75[address] Sep, Right lateral abdominal pain R10.9 [facility] [address] [id number], [place] [address]47[address]78[address] Aug, Fatigue, unspecified type R53.83 [facility] [address] [id number], [place] [address] Aug, [address] [id number] [place] [id number] Jul, Essential (primary) hypertension I10 and Right upper quadrant pain R10.11 [address]00565100[address], [place] [address] Jul, [address] [id number] [place] [id number] Jul, Acute pain of right knee M25.561 ; Slow transit constipation K59.01 and Fatty liver K76.[id number] [place] [id number] May, [facility] [address] [id number], [place] [address] Apr, Dental examination Z01.[address] [id number] [place] [id number] Apr, Encounter for dental examination Z01.20 and Dental caries, unspecified K02.9 [facility] [address] [id number], [place] [address] Mar, Encounter for dental examination Z01.20 [facility] [address] [address] [id number], [place] 939290518 Feb, Encounter for dental examination Z01.[address] [facility] [address] [id number], [place] [address] Jan, [facility] [address] [id number], [place] 784557635 Jan, Encounter for dental examination Z01.20 [facility] [address] [id number], [place] [id number] Jan, Right upper quadrant abdominal pain R10.11 ; Fatty liver K76.0 ; Constipation, chronic K59.00 and Morbid obesity due to excess calories E66.01 [facility] [address] [id number], [place] [address]72[address] Dec, [facility] [address] [id number], [place] [id number] Dec, Fatty liver K76.0 ; Slow transit constipation K59.01 and Hip pain , left M25.552 [facility] [address] [id number], [place] [address]71 Nov, [facility] [address] [id number], [place] [id number] Nov, Essential (primary) hypertension I10 [facility] [address] [id number], [place] [id number] Oct, [facility] [address] [id number], [place] [id number] Oct, Abdominal pain, right upper quadrant 789.01 ; Constipation 564.00 and Hypertension 401.9 [facility] [address] [id number] [place] [address] Sep, Right upper quadrant abdominal pain 789.01 IMMUNIZATIONS No Known Immunizations SOCIAL HISTORY Never Assessed REASON FOR VISIT flu symptoms started thursday. Body aches, acid reflux, cough, fever of 100.6. bferrisma PLAN OF CARE Activity Details Follow Up prn Reason: VITAL SIGNS Height 65.25 in 2017-01-27 Weight 300.7 lbs 2017-01-27 Temperature 99.2 degrees Fahrenheit 2017-01-27 Heart Rate 98 bpm 2017-01-27 Respiratory Rate 16 2017-01-27 BMI 49.65 kg/m2 2017-01-27 Blood pressure systolic 124 mmHg 2017-01-27 Blood pressure diastolic 80 mmHg 2017-01-27 MEDICATIONS Medication Instructions Dosage Frequency Start Date End Date Duration Status Ultram 50 mg Orally 2 times a day 1 tablet as needed for severe back pain only 12h Jul, Active ProAir HFA 108 (90 Base) MCG/ACT Inhalation every 4 hrs 2 puffs as needed 4h Active Celebrex 200 mg Orally Once a day for pain 1 capsule with food May, Active Triamcinolone Acetonide 0.1 % Externally Twice a day 1 application to affected area 12h Dec, 10 days Active BusPIRone HCl 10 mg Orally Twice a day 1 tablet 12h Jul, Active Ibuprofen 800 MG TAKE ONE TABLET BY MOUTH THREE TIMES DAILY NEEDED FOR PAIN. 30 Not-Taking Baclofen 20 MG Orally every 8 hrs 1/2 tablet with food or milk as needed 8h May, Active Gabapentin 300 MG Orally at bedtime 1 capsule Active Citalopram Hydrobromide 20 MG TAKE ONE TABLET BY MOUTH DAILY. 90 Active Albuterol Sulfate (2.5 MG/3ML) 0.083% Inhalation every 6 hrs as needed 3 ml Aug, 30 days Active Promethazine VC/Codeine 6.25-5-10 MG/5ML Orally every 6 hrs 5 ml as needed for congestion and cough 6h Jan, Active Hydrochlorothiazide 12.5 MG TAKE 1 CAPSULE BY MOUTH ONCE DAILY 90 Active Voltaren 1 % Transdermal 4 times a day as directed 6h Dec, Active Xenical 120 MG Orally 3 times a day with meals 1 capsule with meals Jan, Active Lisinopril 2.5 MG TAKE 1 TABLET BY MOUTH ONCE DAILY 90 Active Zyrtec Allergy 10 MG Active Hydrocortisone Sean-Pramoxine 1-1 % Rectal Three times a day 1 application to affected area as needed 8h Jan, Jan, 07 days Active RESULTS Name Result Date Reference Range INFLUENZA A & B (IN HOUSE) 2017-01-27 INFLUENZA A positive INFLUENZA B negative Control + Lot # [id number] Exp date 12/28 PROCEDURES Procedure Date Ordered Result Body Site INFLUENZA ASSAY W/OPTIC Jan 27, 2017 INSTRUCTIONS MEDICATIONS ADMINISTERED No Known Medications [...]
--- OUTSIDE RECORDS SUMMARY | 2018-06-10 17:11 | XMS REPORT ---
Author Author QUINN ESPARZA Organization [facility] [place] Address Unknown Phone Unavailable Care Team Providers Care Social Services Specialist Name Role Phone QUINN ESPARZA Unavailable Unavailable PROBLEMS Type Condition ICD9-CM Code [id number] Code Onset Dates Condition Status SNOMED Code Problem Constipation, chronic K59.00 Active 033183559 Problem Maida-menopausal N95.1 Active 232855979240078 Problem Right lateral abdominal pain R10.9 Active 932199532 Problem Metabolic syndrome X E88.81 Active 777808402 Problem Anxiety F41.9 Active 59569173 Problem Morbid obesity, unspecified obesity type E66.01 Active 563116019 Problem Urinary incontinence, unspecified type R32 Active 701464607 Problem Lumbago with sciatica, left side M54.42 Active 211194886 Problem Vaginal candidiasis B37.3 Active 40283976 Problem Slow transit constipation K59.01 Active 28245074 Problem Fatty liver K76.0 Active 723165968 Problem Hip pain, left M25.552 Active 38840820 Problem Essential (primary) hypertension I10 Active 71533747 Problem Right upper quadrant abdominal pain R10.11 Active 868784679 ALLERGIES No Information SOCIAL HISTORY Never Assessed PLAN OF CARE Activity Details Follow Up next available. Reason:May need Dr. Rasheed after 2 sessions. VITAL SIGNS MEDICATIONS Unknown Medications RESULTS No [...]
--- OUTSIDE RECORDS SUMMARY | 2018-06-10 17:11 | XMS REPORT ---
Author Author YUMIKO NUÑEZ [facility] eClinicalWorks Address Unknown Phone Unavailable Care Team Providers Care Dough Maker Name Role Phone YUMIKO NUÑEZ CP Unavailable Allergies, Adverse Reactions, Alerts Substance Reaction Event Type N.K.D.A. Info Not Available Non Drug Allergy Problems Problem Type Condition Code Onset Dates Condition Status Assessment Fatigue, unspecified type R53.83 Active Problem Constipation, chronic K59.00 Active Problem Morbid obesity due to excess calories E66.01 Active Problem Right upper quadrant abdominal pain R10.11 Active Problem Hip pain, left M25.552 Active Problem Essential (primary) hypertension I10 Active Problem Fatty liver K76.0 Active Problem Slow transit constipation K59.01 Active Medications Medication Code System Code Instructions Start Date End Date Status Dosage Xenical [facility] [address]-57 120 MG Orally 3 times a day with meals Jan 11, 2015 1 capsule with meals Osteo Bi-Flex Adv Joint Shield [facility] [address] Orally 2 day [address] [facility] [address]-51 108 (90 Base) MCG/ACT Inhalation every 4 hrs 2 puffs as needed Hydrochlorothiazide [facility] [address]-24 12.5 MG Orally Once a day 1 tablet Citalopram Hydrobromide [facility] [address]-99 20 MG Orally Once a day 1 tablet Zyrtec Allergy [facility] [address]-24 10 MG Orally not defined Knee Immobilizer 22" ND 0 ... Dx code: M25.561 (acute pain of right knee) Once a day August 03, 2015 as directed Simvastatin [facility] [address]-11 10 mg Orally Once a day August 14, 2015 1 tablet in the evening Lisinopril [facility] [address]-79 2.5 MG Orally Once a day 1 tablet Fiber ND 0 Orally not defined Voltaren [facility] [address]-46 1 % Transdermal 4 times a day Dec 12, 2014 as directed Ibuprofen [facility] [id number] 800 MG TAKE ONE TABLET BY MOUTH THREE TIMES DAILY NEEDED FOR PAIN. Procedures Procedure Coding System Code Date Office Visit, Est Pt., Level 3 CPT-4 98456 August 20, 2015 Vital Signs Date/Time: August 20, 2015 Cardiac Monitoring Heart Rate 88 bpm Weight 308.6 lbs Height 65.25 in Blood Pressure Diastolic 70 mmHg Blood Pressure Systolic 132 mmHg Results No Known Results Summary Purpose eClinicalWorks Submission
--- OUTSIDE RECORDS SUMMARY | 2018-06-10 17:12 | XMS REPORT | Continuity of Care Document ---
Author Organization Unknown Address Unknown Allergies Active Description Code Type Severity Reaction Onset Reported/Identified Relationship to Patient Clinical Status Yes No Allergy Information Available [id number] Drug Allergy Unknown N/A 2014 Yes Jnkonjk-Pol-Npr Reductase Inhibitor [id number] Drug Allergy Moderate FATIGUE 11/08/2015 Medications There is no data. Problems Date Dx Coded Attending Type Code Diagnosis Diagnosed By 12/05/2014 YUMIKO ZIMMERP Ot 571.8 12/05/2014 YUMIKO ZIMMER MAGAZINE FEEDER Ot 789.01 12/08/2014 YUMIKO ZIMMERP Ot 571.8 12/08/2014 YUMIKO ZIMMER MAGAZINE FEEDER Ot 789.01 01/22/2015 DIANN OROZCO MAGAZINE FEEDER Ot K59.00 01/22/2015 EATREYNA DIANN L MAGAZINE FEEDER Ot K76.0 01/22/2015 EATDIANN ORELLANA MAGAZINE FEEDER Ot R10.11 03/07/2015 EATREYNA DIANN Libra MAGAZINE FEEDER Ot K59.00 03/07/2015 EATREYNA DIANN Libra MAGAZINE FEEDER Ot K76.0 03/07/2015 EATONREGINADIANN Libra MAGAZINE FEEDER Ot R10.11 03/28/2015 EATON DIANN L MAGAZINE FEEDER Ot K59.00 03/28/2015 EATON, DIANN L MAGAZINE FEEDER Ot K76.0 03/28/2015 EATON, DIANN L MAGAZINE FEEDER Ot R10.11 11/08/2015 MATTHEW RENE DO Ot R19.4 CHANGE IN BOWEL HABIT 11/08/2015 MATTHEW RENE DO Ot Z01.818 ENCOUNTER FOR OTHER PREPROCEDURAL EXAMIN 11/09/2015 MATTHEW RENE DO Ot R19.4 CHANGE IN BOWEL HABIT 11/09/2015 MATTHEW RENE DO Ot Z01.818 ENCOUNTER FOR OTHER PREPROCEDURAL EXAMIN 11/13/2015 MATTHEW RENE DO Ot R19.4 CHANGE IN BOWEL HABIT 11/23/2015 DONNY CLAY APRN Ot Z12.31 ENCNTR SCREEN MAMMOGRAM FOR MALIGNANT NE 11/23/2015 DONNY CLAY INSPECTION ENGINEER Ot Z12.31 ENCNTR SCREEN MAMMOGRAM FOR MALIGNANT NE 01/10/2016 MAGNOLIA ADAM MD Ot E66.9 OBESITY, UNSPECIFIED 01/10/2016 MAGNOLIA ADAM MD N Ot N92.0 EXCESSIVE AND FREQUENT MENSTRUATION WITH 01/10/2016 MAGNOLIA ADAM MD N Ot Z01.818 ENCOUNTER FOR OTHER PREPROCEDURAL EXAMIN 01/10/2016 MAGNOLIA ADAM MD Ot Z68.43 BODY MASS INDEX (BMI) 50-59.9 , ADULT 01/10/2016 DONNY CLAY APRN Ot Z12.31 ENCNTR SCREEN MAMMOGRAM FOR MALIGNANT NE 01/11/2016 MAGNOLIA ADAM MD Ot E66.9 OBESITY, UNSPECIFIED 01/11/2016 MAGNOLIA ADAM MD N Ot N92.0 EXCESSIVE AND FREQUENT MENSTRUATION WITH 01/11/2016 MAGNOLIA ADAM MD N Ot Z01.818 ENCOUNTER FOR OTHER PREPROCEDURAL EXAMIN 01/11/2016 MAGNOLIA ADAM MD Ot Z68.43 BODY MASS INDEX (BMI) 50-59.9 , ADULT 01/14/2016 MAGNOLIA ADAM MD N Ot E66.01 MORBID (SEVERE) OBESITY DUE TO EXCESS CA 01/14/2016 MAGNOLIA ADAM MD N Ot N92.0 EXCESSIVE AND FREQUENT MENSTRUATION WITH 01/17/2016 MAGNOLIA ADAM MD N Ot E66.01 MORBID (SEVERE) OBESITY DUE TO EXCESS CA 01/17/2016 KIA SCHROEDER MAGNOLIA N Ot N92.0 EXCESSIVE AND FREQUENT MENSTRUATION WITH 04/28/2016 DONNY CLAY APRN Ot Z12.31 ENCNTR SCREEN MAMMOGRAM FOR MALIGNANT NE 04/28/2016 DONNY CLAY APRN Ot Z12.31 ENCNTR SCREEN MAMMOGRAM FOR MALIGNANT NE 04/28/2016 UNA CORDOVA Ot I10 ESSENTIAL (PRIMARY) HYPERTENSION 04/28/2016 UNA CORDOVA Ot M47.814 SPONDYLOSIS W/O MYELOPATHY OR RADICULOPA 04/28/2016 UNA CORDOVA Ot M54.6 PAIN IN THORACIC SPINE 04/28/2016 UNA CORDOVA Ot 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 04/30/2016 UNA CORDOVA Ot I10 ESSENTIAL (PRIMARY) HYPERTENSION 04/30/2016 UNA CORDOVA Ot M47.814 SPONDYLOSIS W/O MYELOPATHY OR RADICULOPA 04/30/2016 UNA CORDOVA Ot M54.6 PAIN IN THORACIC SPINE 04/30/2016 UNA CORDOVA Ot Z79.899 OTHER HALFWAY (CURRENT) DRUG THERAPY 11/06/2016 DONNY CLAY APRN Ot Z12.31 ENCNTR SCREEN MAMMOGRAM FOR MALIGNANT NE 07/27/2017 DIANN OROZCO Ot M16.0 BILATERAL PRIMARY OSTEOARTHRITIS OF HIP 07/28/2017 DIANN OROZCOP Ot M16.0 BILATERAL PRIMARY OSTEOARTHRITIS OF HIP 08/01/2017 DIANN OROZCO MAGAZINE FEEDER Ot M16.0 BILATERAL PRIMARY OSTEOARTHRITIS OF HIP Procedures There is no data. Results Test Result Range Methicillin resistant Staphylococcus aureus (MRSA) screening culture - 13:30 Methicillin resistant Staphylococcus aureus (MRSA) screening culture NEG NRG Urine beta human chorionic gonadotropin (hCG) measurement - 01/14/16 10:55 Urine beta human chorionic gonadotropin (hCG) measurement NEGATIVE NEGATIVE Encounters ACCT No. Visit Date/Time Discharge Status Pt. Type Provider Facility Loc./Unit Complaint [id number] 07/25/2017 08:41:00 07/25/2017 23:59:59 CLS Outpatient DIANN OROZCO [facility] RAD LEFT HIP PAIN [id number] 04/28/2016 17:00:00 04/28/2016 19:32:00 DIS Emergency UNA CORDOVA [facility] ER BACK PAIN [id number] 01/14/2016 10:55:00 01/14/2016 16:55:00 DIS Outpatient MAGNOLIA ADAM MD [facility] SDC MENORRHAGIA, OBESITY WITH BMI 51 [id number] 01/10/2016 14:14:00 01/10/2016 14:53:00 DIS Outpatient MAGNOLIA ADAM MD [facility] PREOP MENORRHAGIA, OBESITY WITH BMI 51 [id number] 11/21/2015 15:18:00 11/21/2015 23:59:59 CLS Outpatient DONNY CLAY APRN [facility] RAD BREAST CANCER SCREENING [id number] 11/13/2015 09:16:00 11/13/2015 12:30:00 DIS Outpatient MATTHEW RENE DO [facility] CHANGE IN BOWEL HABITS [id number] 11/08/2015 12:41:00 11/08/2015 13:45:00 DIS Outpatient MATTHEW RENE DO [facility] PREOP CHANGE IN BOWEL HABITS [id number] 01/18/2015 13:39:00 01/18/2015 23:59:59 CLS Outpatient DIANN OROZCO [facility] RAD [id number] 10/12/2014 08:43:00 10/12/2014 23:59:59 CLS Outpatient YUMIKO ZIMMER [facility] RAD [id number] 03/10/2018 08:00:00 03/10/2018 23:59:59 [facility]
[2018-06-10] MEDS ORDERED: LACTATED RINGERS 1,000 ML IV ONE (18:20)
--- NOTE | 2018-06-10 18:43 | ED GI ---
General Chief Complaint: Abdominal/GI Problems Stated Complaint: ABD PAIN,DIARRHEA Nursing Triage Note: Pt reports diarrhea x4 days. Pt unable to eat since Thursday (06/07). Pt had abd xrays taken yesterday at [place] and has not yet received results Sepsis Screen: No Definite Risk Source of Information: Patient History of Present Illness Date Seen by Provider: June 10, 2018 Time Seen by Provider: 18:20 Initial Comments PT ARRIVES VIA POV FROM HOME C/O EPIGASTRIC CRAMPING C/O DIARRHEA--HAS HAD 3 EPISODES TODAY, NO BLACK/BLOODY/TARRY STOOLS, HAD APPROXIMATELY 10 STOOLS YESTERDAY C/O DECREASED APPETITE--HAS HAD BROTH AND JELLO TODAY C/O MILD INTERMITTENT NAUSEA, NO VOMITING NO FEVER VOIDING A NORMAL AMOUNT, AND NO PROBLEMS URINATING SYMPTOMS BEGAN ON Thursday06/07/18 STATES WHEN SHE DRINKS BROTH, SHE GETS CRAMPING AND THEN DIARRHEA. DOES NOT HAVE PROBLEMS WITH WATER OR OTHER LIQUIDS. NO SICK CONTACTS OR SUSPICIOUS FOODS HAS HISTORY OF CONSTIPATION OTHERWISE NO GI PROBLEMS LMP 1 WEEK AGO, NO CONTROL PT WAS SEEN AT [facility] YESTERDAY FOR THIS PROBLEM AND HAD XRAYS DONE --RESULTS UNKNOWN. NO RX'S PCP: [facility] [place]--SEES TIP TESTER EATON Allergies and Home Medications Allergies Coded Allergies: Atlxsdd-Xhz-Usv Reductase Inhibitor (Verified Allergy, Intermediate, FATIGUE, 11/08/15) Home Medications Calcium Carb/Mag Ox/Zinc Sulf 1 Each Tablet, 1 EACH PO DAILY, (Reported) Cetirizine HCl 10 Mg Tablet, 10 MG PO DAILY, (Reported) Citalopram Hydrobromide 20 Mg Tablet, 20 MG PO DAILY, (Reported) Cyanocobalamin (Vitamin B-12) 2,500 Mcg Tablet, 2,500 MCG PO DAILY, (Reported) Fish Oil/Dha/Epa 1 Each Capsule, 1 EACH PO DAILY, (Reported) Hydrochlorothiazide 12.5 Mg Tablet, 12.5 MG PO DAILY, (Reported) Hydrocodone/Acetaminophen 1 Each Tablet, 1-2 EACH PO Q4H PRN for PAIN Prescribed by: MAGNOLIA ADAM on 01/14/16 1232 Ibuprofen 600 Mg Tablet, 600 MG PO Q6H Prescribed by: MAGNOLIA ADAM on 01/14/16 1232 Lisinopril 10 Mg Tablet, 10 MG PO DAILY, (Reported) Orlistat 120 Mg Capsule, 120 MG PO TID, (Reported) Prednisone 20 Mg Tab, 40 MG PO DAILY Prescribed by: UNA BURKETT on 04/28/161913 Tramadol HCl 50 Mg Tablet, 50 MG PO Q4H PRN for PAIN Prescribed by: UNA BURKETT on 04/28/161913 Patient Home Medication List Home Medication List Reviewed: Yes Review of Systems Review of Systems Constitutional: no symptoms reported; No fever Respiratory: No Symptoms Reported Cardiovascular: No Symptoms Reported Gastrointestinal: See HPI, Abdominal Pain, Diarrhea, Nausea, Poor Appetite; Denies Poor Fluid Intake, Denies Vomiting Genitourinary: No Symptoms Reported Musculoskeletal: no symptoms reported Skin: no symptoms reported Psychiatric/Neurological: No Symptoms Reported Endocrine: No Symptoms Reported Hematologic/Lymphatic: No Symptoms Reported Past Jmxqrar-Elqksh-Txdiyh Hx Patient Social History Alcohol Use: Occasionally Uses Recreational Drug Use: Yes (HX OF METH AND THC USE, DENIES IV USE) Drug of Choice: HX OF THC AND METH USE, DENIES IV USE Smoking Status: Former Smoker (1 PPD, QUIT IN 1998) Type Used: Cigarettes Former Smoker, Quit: Feb 09, 1998 Recent Foreign Travel: No Contact w/Someone Who Travel: No Recent Infectious Disease Expo: No Recent Hopitalizations: No Seasonal Allergies Seasonal Allergies: Yes Past Medical History Surgeries: Yes ( X 1; LEFT HIP REPLACEMENT;; SURGERY FOR "TWISTED BOWELS"; LIPOMA REMOVAL) Abdominal, Bowel Surgery, Section, Joint Replacement, Orthopedic Respiratory: Yes Asthma Currently Using CPAP: No Currently Using BIPAP: No Cardiac: Yes Hypertension Neurological: No Reproductive Disorders: Yes (MENORRHAGIA) Female Reproductive Disorders: Menstrual Problems, Endometriosis Sexually Transmitted Disease: No HIV/AIDS: No Genitourinary: No Gastrointestinal: Yes (FATTY LIVER; HAD "TWISTED BOWEL" AFTER /HAD SURGERY) Liver Disease/Jaundice, Chronic Constipation Musculoskeletal: Yes (LEFT HIP REPLACEMENT) Arthritis, Chronic Back Pain Endocrine: Yes ("BORDERLINE DIABETES" PER PT; MORBID OBESITY) HEENT: No Loss of Vision: Denies Hearing Impairment: Denies Cancer: No Psychosocial: Yes Anxiety, Depression Integumentary: Yes Eczema Blood Disorders: No Adverse Reaction/Blood Tranf: No Family Medical History No Pertinent Family Hx Physical Exam Vital Signs Vital Signs - First Documented 06/10/18 17:53 Temp 98.1 Pulse 68 Resp 18 B/P (MAP) 174/74 (107) Pulse Ox 96 O2 Delivery Room Air Capillary Refill : Less Than 3 Seconds Height/Weight/BMI Height: 5'4.00" Weight: 317lbs. 8.0oz. 143.730111oo; 54.0 BMI Method:Stated General Appearance: no apparent distress, obese (MORBIDLY) Neck: normal inspection Respiratory: normal breath sounds, no respiratory distress, no accessory muscle use Cardiovascular: regular rate, rhythm, no murmur Gastrointestinal: normal bowel sounds, non tender, soft, no organomegaly, no pulsatile mass Extremities: normal inspection Back: no CVA tenderness Neurologic/Psychiatric: ceramic engineer II-XII nml as tested, no motor/sensory deficits, alert, normal mood/affect, oriented x 3 Skin: normal color, warm/dry; No rash Progress/Results/Core Measures Results/Orders Lab Results Laboratory Tests Test 06/10/18 18:42 06/10/18 18:54 Range/Units White Blood Count 7.6 4.3-11.0 10^3/uL Red Blood Count 4.91 4.35-5.85 10^6/uL Hemoglobin 13.0 11.5-16.0 G/DL Hematocrit 41 35-52 % Mean Corpuscular Volume 83 80-99 FL Mean Corpuscular Hemoglobin 27 25-34 PG Mean Corpuscular Hemoglobin Concent 32 32-36 G/DL Red Cell Distribution Width 15.6 H 10.0-14.5 % Platelet Count 263 130-400 10^3/uL Mean Platelet Volume 10.0 7.4-10.4 FL Neutrophils (%) (Auto) 58 42-75 % Lymphocytes (%) (Auto) 31 12-44 % Monocytes (%) (Auto) 10 0-12 % Eosinophils (%) (Auto) 2 0-10 % Basophils (%) (Auto) 1 0-10 % Neutrophils # (Auto) 4.4 1.8-7.8 X 10^3 Lymphocytes # (Auto) 2.3 1.0-4.0 X 10^3 Monocytes # (Auto) 0.7 0.0-1.0 X 10^3 Eosinophils # (Auto) 0.1 0.0-0.3 10^3/uL Basophils # (Auto) 0.0 0.0-0.1 10^3/uL Prothrombin Time 14.8 H 12.2-14.7 SEC INR Comment 1.1 0.8-1.4 Activated Partial Thromboplast Time 33 24-35 SEC Sodium Level 142 135-145 MMOL/L Potassium Level 3.5 L 3.6-5.0 MMOL/L Chloride Level 103 98-107 MMOL/L Carbon Dioxide Level 25 21-32 MMOL/L Anion Gap 14 5-14 MMOL/L Blood Urea Nitrogen 9 7-18 MG/DL Creatinine 0.64 0.60-1.30 MG/DL Estimat Glomerular Filtration Rate > 60 BUN/Creatinine Ratio 14 Glucose Level 97 70-105 MG/DL Calcium Level 9.2 8.5-10.1 MG/DL Corrected Calcium 9.3 8.5-10.1 MG/DL Magnesium Level 2.1 1.8-2.4 MG/DL Total Bilirubin 0.5 0.1-1.0 MG/DL Aspartate Amino Transf (AST/SGOT) 26 5-34 U/L Alanine Aminotransferase (ALT/SGPT) 30 0-55 U/L Alkaline Phosphatase 75 40-136 U/L Total Protein 7.6 6.4-8.2 GM/DL Albumin 3.9 3.2-4.5 GM/DL Amylase Level 30 25-125 U/L Lipase 14 8-78 U/L Urine Color YELLOW Urine Clarity SLIGHTLY CLOUDY Urine pH 6 5-9 Urine Specific [place] 1.015 L 1.016-1.022 Urine Protein 1+ H NEGATIVE Urine Glucose (UA) NEGATIVE NEGATIVE Urine Ketones NEGATIVE NEGATIVE Urine Nitrite NEGATIVE NEGATIVE Urine Bilirubin NEGATIVE NEGATIVE Urine Urobilinogen NORMAL NORMAL MG/DL Urine Leukocyte Esterase NEGATIVE NEGATIVE Urine RBC (Auto) 1+ H NEGATIVE Urine RBC 0-2 /HPF Urine WBC NONE /HPF Urine Crystals NONE /LPF Urine Bacteria NONE /HPF Urine Casts NONE /LPF Urine Mucus MODERATE H /LPF Urine Culture Indicated NO My Orders Orders - VARGAS REYES DO Ed Iv/Invasive Line Start (06/10/18 18:20) Monitor-Rhythm Ecg Trace Only (06/10/18 18:20) Straight Cath For Spec.-Adult (06/10/18 18:20) Amylase (06/10/18 18:20) Cbc With Automated Diff (06/10/18 18:20) Comprehensive Metabolic Panel (06/10/18 18:20) Lipase (06/10/18 18:20) Magnesium (06/10/18 18:20) Protime With Inr (06/10/18 18:20) Partial Thromboplastin Time (06/10/18 18:20) Ua Culture If Indicated (06/10/18 18:20) Ed Iv/Invasive Line Start (06/10/18 18:20) Lactated Ringers (Lr 1000 Ml Iv Solution (06/10/18 18:20) Catheter(Urinary) Insert & Ass 03,15 (06/10/18 18:20) Ondansetron Injection (Zofran Injectio (06/10/18 18:45) Hyoscyamine Sl Tablet (Levsin Sl Tablet) (06/10/18 18:45) Pantoprazole Injection (Protonix Injecti (06/10/18 18:45) Ct Abdomen/Pelvis W (06/10/18 19:25) Acute Abd Series (06/10/18 19:25) Iohexol Injection (Omnipaque 350 Mg/Ml 1 (06/10/18 19:30) Received Contrast (Hold Metformin- Contr (06/10/18 19:30) Sodium Chloride Flush (Catheter Flush Sy (06/10/18 19:30) Medications Given in ED Current Medications Medications Dose Ordered Sig/Jorge Route Start Time Stop Time Status Last Admin Dose Admin Hyoscyamine Sulfate 0.25 mg ONCE ONCE PO 06/10/18 18:45 06/10/18 18:46 DC 06/10/18 18:56 0.25 MG Iohexol 100 ml ONCE ONCE IV 06/10/18 19:30 06/10/18 19:31 DC 06/10/18 19:57 100 ML Lactated Ringer's 1,000 ml @ 0 mls/hr Q0M ONCE IV 06/10/18 18:20 06/10/18 18:26 DC 06/10/18 18:56 0 MLS/HR Ondansetron HCl 4 mg ONCE ONCE IVP 06/10/18 18:45 06/10/18 18:46 DC 06/10/18 18:56 4 MG Pantoprazole 40 mg ONCE ONCE IV 06/10/18 18:45 06/10/18 18:46 DC 06/10/18 18:55 40 MG Sodium Chloride 10 ml NEEDED PRN IV 5/2/19 19:30 06/10/18 19:57 10 ML Vital Signs/I&O 06/10/18 17:53 Temp 98.1 Pulse 68 Resp 18 B/P (MAP) 174/74 (107) Pulse Ox 96 O2 Delivery Room Air Blood Pressure Mean: 107 Progress Progress Note : Progress Note SYMPTOMS RESOLVED WITH ZOFRAN AND LEVSIN NO ABDOMINAL TENDERNESS DURING ER STAY NO DIARRHEA DURING ER STAY Diagnostic Imaging Comments ABDOMEN XRAYS--NO ACUTE PROCESS CT ABDOMEN/PELVIS--FATTY LIVER, NO ACUTE PROCESS PER RADIOLOGIST REPORTS @ 2037 Reviewed: Reviewed by Me Departure Impression Primary Impression: Epigastric abdominal pain Additional Impressions: Diarrhea POSSIBLE GASTROENTERITIS Disposition: HOME, SELF-CARE Condition: Improved Departure-Patient Inst. Referrals: [facility]/LILLY (PCP) Primary Care Physician DIANN OROZCO (Family) Primary Care Physician Patient Instructions: Acute Abdomen (Belly Pain), Adult (DC), Diarrhea in Adolescents and Adults, Viral Gastroenteritis, Adult (DC) Add. Discharge Instructions: CLEAR LIQUIDS--WATER, JELLO, GATORADE TOMORROW IF YOU ARE BETTER, ADD BRATS DIET TO CLEAR LIQUIDS FOLLOW UP WITH YOUR DR IN 2-3 DAYS IF NO BETTER All discharge instructions reviewed with patient and/or family. Voiced understanding. Scripts Lactobacillus Acidophilus (Acidophilus) 1 Each Capsule 2 EACH PO QID, #80 CAP Prov: VARGAS REYES DO 06/10/18 Pantoprazole Sodium (Protonix) 40 Mg Tablet.dr 40 MG PO DAILY, #15 TAB Prov: VARGAS REYES DO 06/10/18 Hyoscyamine Sulfate (Levsin-Sl) 0.125 Mg Tab.subl 1-2 TAB SL Q4H for Abdominal Pain, #10 TAB Prov: VARGAS REYES DO 06/10/18 Ondansetron (Ondansetron Odt) 4 Mg Tab.rapdis 4 MG PO Q4H for Nausea/Vomiting, #10 TAB Prov: VARGAS REYES DO 06/10/18 VARGAS REYES DO June 10, 2018 18:42
[2018-06-10] MEDS ORDERED: PANTOPRAZOLE 40 MG (PROTONIX) VIAL IV ONE (18:45)
[2018-06-10] MEDS ORDERED: ONDANSETRON 4 MG/2 ML (SDV) Z0FRAN IVP ONE (18:45)
[2018-06-10] MEDS ORDERED: HYOSCYAMINE 0.125 MG (LEVSIN) TAB PO ONE (18:45)
[2018-06-10 18:48] LABS: BASOPHILS % (AUTO) 1 % (0-10); EOSINOPHILS # (AUTO) 0.1 10^3/uL (0.0-0.3); EOSINOPHILS % (AUTO) 2 % (0-10); HEMATOCRIT 41 % (35-52); LYMPHOCYTES # (AUTO) 2.3 X 10^3 (1.0-4.0); LYMPHOCYTES % (AUTO) 31 % (12-44); MEAN CORPUSCULAR HEMOGLOBIN 27 PG (25-34); MEAN CORPUSCULAR HGB CONC 32 G/DL (32-36); MEAN CORPUSCULAR VOLUME 83 FL (80-99); MONOCYTES # (AUTO) 0.7 X 10^3 (0.0-1.0); MONOCYTES % (AUTO) 10 % (0-12); NEUTROPHILS # (AUTO) 4.4 X 10^3 (1.8-7.8); NEUTROPHILS % (AUTO) 58 % (42-75); PLATELET COUNT 263 10^3/uL (130-400); RED CELL DISTRIBUTION WIDTH 15.6 % (10.0-14.5); WHITE BLOOD COUNT 7.6 10^3/uL (4.3-11.0)
[2018-06-10 18:58] LABS: INR 1.1 (0.8-1.4); PROTHROMBIN TIME PATIENT 14.8 SEC (12.2-14.7)
[2018-06-10 19:15] LABS: BILIRUBIN,URINE NEGATIVE (NEGATIVE); CLARITY,URINE SLIGHTLY CLOUDY; COLOR,URINE YELLOW; GLUCOSE, URINE (UA) NEGATIVE (NEGATIVE); KETONES,URINE NEGATIVE (NEGATIVE); LEUKOCYTE ESTERASE ,URINE NEGATIVE (NEGATIVE); NITRITE,URINE NEGATIVE (NEGATIVE); PH,URINE 6 (5-9); PROTEIN,URINE 1+ (NEGATIVE); UROBILINOGEN,URINE NORMAL (NORMAL)
[2018-06-10 19:22] LABS: ALANINE AMINOTRANSFERASE 30 U/L (0-55); ALBUMIN 3.9 GM/DL (3.2-4.5); ALKALINE PHOSPHATASE 75 U/L (40-136); AMYLASE 30 U/L (25-125); BILIRUBIN,TOTAL 0.5 MG/DL (0.1-1.0); CALCIUM 9.2 MG/DL (8.5-10.1); CARBON DIOXIDE 25 MMOL/L (21-32); CHLORIDE 103 MMOL/L (98-107); GLUCOSE 97 MG/DL (70-105); LIPASE 14 U/L (8-78); MAGNESIUM 2.1 MG/DL (1.8-2.4); POTASSIUM 3.5 MMOL/L (3.6-5.0); SODIUM 142 MMOL/L (135-145); TOTAL PROTEIN 7.6 GM/DL (6.4-8.2)
[2018-06-10 19:25] LABS: RBC,URINE 0-2 /HPF
[2018-06-10] MEDS ORDERED: CATHETER FLUSH 10 ML SYR IV PRN (19:30)
[2018-06-10] MEDS ORDERED: HOLD METFORMIN - RECEIVED CONTRAST 20 ML VIAL IV SCH (19:30)
[2018-06-10] MEDS ORDERED: IOHEXOL 350 MG/ML 100 ML (OMNIPAQUE 350) VIAL IV ONE (19:30)
[2018-06-10 19:41] LABS: BUN/CREATININE RATIO 14; CREATININE SERUM 0.64 MG/DL (0.60-1.30); GFR ESTIMATED > 60
--- NOTE | 2018-06-10 20:00 | Diagnostic Imaging Report ---
INDICATION: Abdominal pain and diarrhea. Time of exam: 7:38 PM Heart size is normal. Lungs are clear. There is no free air identified. Bowel gas pattern appears nonobstructed. No pathologic calcifications are seen. There are postop changes to the left hip. IMPRESSION: No acute feature is detected. Dictated by: Dictated on workstation # [id number]
--- NOTE | 2018-06-10 20:11 | Diagnostic Imaging Report ---
PROCEDURE: CT abdomen and pelvis with contrast. TECHNIQUE: Multiple contiguous axial images were obtained through the abdomen and pelvis after administration of intravenous contrast. Auto Exposure Controls were utilized during the CT exam to meet ALARA standards for radiation dose reduction. INDICATION: Abdominal pain and diarrhea. Comparison is made with prior CT from 01/18/2015. Lung bases are clear. The liver does show generalized low density consistent with hepatic steatosis. No discrete liver mass is identified. Gallbladder is unremarkable. No biliary duct dilatation is seen. Pancreas and spleen are unremarkable. No adrenal mass is identified. Kidneys are unremarkable. No hydronephrosis is identified. Aorta is not aneurysmal. Bowel loops are normal caliber. No obstruction is identified. Appendix is unremarkable. No inflammatory changes are seen. No free fluid identified. The uterus and bladder are unremarkable. Postop changes to the left hip are noted. There is marked degenerative changes to the left hip. IMPRESSION: 1. Hepatic steatosis. 2. No acute feature in the abdomen or pelvis is identified. Dictated by: Dictated on workstation # [id number]
[2018-06-10] MEDS ORDERED: HYOS0.1283 SL (20:23)
[2018-06-10] MEDS ORDERED: RX-HYOSCYAMINE 0.125 MG SL (LEVSIN) PPK#6 SL STA (20:23)
[2018-06-10] MEDS ORDERED: PANT40TA2 PO (20:23)
[2018-06-10] MEDS ORDERED: ONDA4TAB11 PO (20:23)
[2018-06-10] MEDS ORDERED: LACT1CAP8 PO (20:23)
[2018-06-10] MEDS ORDERED: RX-ONDANSETRON 4 MG ODT (ZOFRAN) PPK #4 PO STA (20:23)
[2018-06-10 21:09] VITALS: BP 175/84
== END 2018-06-10 21:11 | disposition home or self-care (01) ==
LOC: EDUNIT# 17:00 → ER 17:02
DX: R10.13 Epigastric pain (principal); R19.7 Diarrhea, unspecified; J45.909 Unspecified asthma, uncomplicated; I10 Essential (primary) hypertension; E66.01 Morbid (severe) obesity due to excess calories; F41.9 Anxiety disorder, unspecified; F32.9 Major depressive disorder, single episode, unspecified; Z68.43 Body mass index [BMI] 50.0-59.9, adult; Z87.448 Personal history of other diseases of urinary system; Z87.19 Personal history of other diseases of the digestive system; Z88.8 Allergy status to other drugs, medicaments and biological substances; Z79.52 Long term (current) use of systemic steroids; Z87.891 Personal history of nicotine dependence; Z98.890 Other specified postprocedural states; Z96.642 Presence of left artificial hip joint
CPT/HCPCS: 36415; 51701; 74022; 74177; 80053; 81000; 82150; 83690; 83735; 85025; 85610; 85730; 93041

== ENCOUNTER 2018-06-13 12:35 | Emergency (ER) | payer SELFPAY ==
[~2018-06-13] VITALS: Ht 162.6 cm; Wt 142.0 kg
[~2018-06-13 12:35] MED LIST changes: +HYOS0.1283 SL; +LACT1CAP8 PO; +ONDA4TAB11 PO; +PANT40TA2 PO
--- OUTSIDE RECORDS SUMMARY | 2018-06-13 12:47 | XMS REPORT | Continuity of Care Document ---
Author Organization Unknown Address Unknown Allergies Active Description Code Type Severity Reaction Onset Reported/Identified Relationship to Patient Clinical Status Yes No Allergy Information Available [id number] Drug Allergy Unknown N/A 2014 Yes Falxyza-Cgx-Uju Reductase Inhibitor [id number] Drug Allergy Moderate FATIGUE 11/08/2015 Medications There is no data. Problems Date Dx Coded Attending Type Code Diagnosis Diagnosed By 12/05/2014 YUMIKO ZIMMERP Ot 571.8 12/05/2014 YMUIKO ZIMMER LABORATORY ANALYST Ot 789.01 12/08/2014 YUMIKO ZIMMERP Ot 571.8 12/08/2014 YUMIKO ZIMMER LABORATORY ANALYST Ot 789.01 01/22/2015 DIANN OROZCO LABORATORY ANALYST Ot K59.00 01/22/2015 EATREYNA DIANN L LABORATORY ANALYST Ot K76.0 01/22/2015 EATDIANN ORELLANA LABORATORY ANALYST Ot R10.11 03/07/2015 EATREYNA DIANN Libra LABORATORY ANALYST Ot K59.00 03/07/2015 EATREYNA DIANN Libra LABORATORY ANALYST Ot K76.0 03/07/2015 EATONREGINADIANN Libra LABORATORY ANALYST Ot R10.11 03/28/2015 EATON DIANN L LABORATORY ANALYST Ot K59.00 03/28/2015 EATON, DIANN L LABORATORY ANALYST Ot K76.0 03/28/2015 EATON, DIANN L LABORATORY ANALYST Ot R10.11 11/08/2015 MATTHEW RENE DO Ot [...] MAMMOGRAM FOR MALIGNANT NE 11/23/2015 DONNY CLAY BACK TENDER PAPER MACHINE Ot Z12.31 ENCNTR SCREEN MAMMOGRAM FOR MALIGNANT [...] SPINE 04/28/2016 UNA CORDOVA Ot Z79.899 OTHER OYSTER OPENER (CURRENT) DRUG THERAPY 04/30/2016 UNA CORDOVA Ot I10 ESSENTIAL (PRIMARY) HYPERTENSION 04/30/2016 UNA CORDOVA Ot M47.814 SPONDYLOSIS W/O MYELOPATHY OR RADICULOPA 04/30/2016 UNA CORDOVA Ot M54.6 PAIN IN THORACIC SPINE 04/30/2016 UNA CORDOVA Ot Z79.899 OTHER JAIL (CURRENT) DRUG THERAPY 11/06/2016 DONNY CLAY APRN Ot Z12.31 ENCNTR SCREEN MAMMOGRAM FOR MALIGNANT NE 07/27/2017 DIANN OROZCO Ot M16.0 BILATERAL PRIMARY OSTEOARTHRITIS OF HIP 07/28/2017 DIANN OROZCOP Ot M16.0 BILATERAL PRIMARY OSTEOARTHRITIS OF HIP 08/01/2017 DIANN OROZCO LABORATORY ANALYST Ot M16.0 BILATERAL PRIMARY OSTEOARTHRITIS OF HIP [...] Status Pt. Type Provider Facility Loc./Unit Complaint [id number] 07/25/2017 08:41:00 07/25/2017 23:59:59 CLS Outpatient DIANN OROZCO [facility] RAD LEFT HIP PAIN [id number] 04/28/2016 17:00:00 04/28/2016 19:32:00 DIS Emergency UNA CORDOVA [facility] ER BACK PAIN [id number] 01/14/2016 10:55:00 01/14/2016 16:55:00 DIS Outpatient MANGOLIA ADAM MD [facility] SDC MENORRHAGIA, OBESITY WITH BMI 51 [id number] 01/10/2016 14:14:00 01/10/2016 14:53:00 DIS Outpatient MAGNOLIA ADAM MD [facility] PREOP MENORRHAGIA, OBESITY WITH BMI 51 [id number] 11/21/2015 15:18:00 11/21/2015 23:59:59 CLS Outpatient DONNY CLAY APRN [facility] RAD BREAST CANCER SCREENING [id number] 11/13/2015 09:16:00 11/13/2015 12:30:00 DIS Outpatient MATTHEW RENE DO [facility] CHANGE IN BOWEL HABITS [id number] 11/08/2015 12:41:00 11/08/2015 13:45:00 DIS Outpatient MATTHEW RENE DO [facility] PREOP CHANGE IN BOWEL HABITS [id number] 01/18/2015 13:39:00 01/18/2015 23:59:59 CLS Outpatient DIANN OROZCO [facility] RAD [id number] 10/12/2014 08:43:00 10/12/2014 23:59:59 CLS Outpatient YUMIKO ZIMMER [facility] RAD [id number] 03/10/2018 08:00:00 03/10/2018 23:59:59 CLS Out[facility]
[2018-06-13] MEDS ORDERED: NS IV 1000 ML 1,000 ML IV SCH (13:45)
--- NOTE | 2018-06-13 13:51 | ED GI ---
General Chief Complaint: Abdominal/GI Problems Stated Complaint: DIARRHEA / ABD PAIN Nursing Triage Note: PATIENT AMBULATORY TO ER WITH SPOUSE TO ER ROOM 10. PATIENT COMPLAINS OF UPPER ABDOMINAL PAIN WITH CRAMPING AND DIARRHEA. PATIENT STATES SHE WAS SEEN HERE IN THE ER ON 06/10/18 AND HAD A COMPLETE WORKUP. SHE STATES SHE WAS GIVEN PANTOPRAZOLE, ACIDOPHILIS, AND LEVSIN WITH NO RELIEF. SHE IS UNABLE TO EAT DUE TO IMMEDIATE DIRRHEA WITH EATING. PATIENT STATES SHE IS ABLE TO TO DRINK GATORADE, WATER AND JELLO WITHOUT DIFFICULTY. Sepsis Screen: No Definite Risk Source of Information: Patient Exam Limitations: No Limitations History of Present Illness Date Seen by Provider: June 13, 2018 Time Seen by Provider: 13:46 Initial Comments To ER per private vehicle with reports of epigastric abdominal cramping that is immediately followed by loose stools. This began on Thursday, 6 days ago. She was seen here in the emergency room 3 days [address] for this. CT scan labs were unremarkable, was advised to start probiotic, given pantoprazole and Levsin. She states that the Levsin is helping. However she states that anytime she eats even saltine crackers this is followed almost immediately by loose stools. She had 6 episodes of watery diarrhea yesterday. Today the stools are no longer watery but they are looser than usual, she's had 2 episodes of loose stools today. No nausea no fever no chills. No blood or mucus in the stools. She is otherwise healthy except for hypertension. She states that she felt poorly upon awakening last Thursday and did not eat anything unusual on Thursday, no one else that she's been around has these symptoms. Timing/Duration: 1 Week Severity/Quality: Moderate Location: Epigastric Activities at Onset: None Associated Symptoms: No Nausea/Vomiting Allergies and Home Medications Allergies Coded Allergies: Cjuhngb-Zqd-Dwg Reductase Inhibitor (Verified Allergy, Intermediate, FATIGUE, 11/08/15) Home Medications Calcium Carb/Mag Ox/Zinc Sulf 1 Each Tablet, 1 EACH PO DAILY, (Reported) Cetirizine HCl 10 Mg Tablet, 10 MG PO DAILY, (Reported) Citalopram Hydrobromide 20 Mg Tablet, 20 MG PO DAILY, (Reported) Cyanocobalamin (Vitamin B-12) 2,500 Mcg Tablet, 2,500 MCG PO DAILY, (Reported) Fish Oil/Dha/Epa 1 Each Capsule, 1 EACH PO DAILY, (Reported) Hydrochlorothiazide 12.5 Mg Tablet, 12.5 MG PO DAILY, (Reported) Hydrocodone/Acetaminophen 1 Each Tablet, 1-2 EACH PO Q4H PRN for PAIN Prescribed by: MAGNOLIA ADAM on 01/14/16 1232 Hyoscyamine Sulfate 0.125 Mg Tab.subl, 1-2 TAB SL Q4H Prescribed by: VARGAS REYES on 06/10/182022 Ibuprofen 600 Mg Tablet, 600 MG PO Q6H Prescribed by: MAGNOLIA ADAM on 01/14/16 1232 Lactobacillus Acidophilus 1 Each Capsule, 2 EACH PO QID Prescribed by: VARGAS REYES on 06/10/182022 Lisinopril 10 Mg Tablet, 10 MG PO DAILY, (Reported) Ondansetron 4 Mg Tab.rapdis, 4 MG PO Q4H Prescribed by: VARGAS REYES on 06/10/182022 Orlistat 120 Mg Capsule, 120 MG PO TID, (Reported) Pantoprazole Sodium 40 Mg Tablet.dr, 40 MG PO DAILY Prescribed by: VARGAS REYES on 06/10/182022 Potassium Chloride 20 Meq Tablet.er, 40 MEQ PO DAILY Prescribed by: JASMEET BATEMAN on 06/13/181456 Prednisone 20 Mg Tab, 40 MG PO DAILY Prescribed by: UNA BURKETT on 04/28/161913 Tramadol HCl 50 Mg Tablet, 50 MG PO Q4H PRN for PAIN Prescribed by: UNA BURKETT on 04/28/161913 Patient Home Medication List Home Medication List Reviewed: Yes Review of Systems Review of Systems Constitutional: see HPI; No chills, No fever EENTM: No Symptoms Reported Respiratory: No Symptoms Reported Cardiovascular: No Symptoms Reported Gastrointestinal: See HPI, Abdominal Pain; Denies Constipated; Diarrhea; Denies Nausea Genitourinary: No Symptoms Reported Musculoskeletal: no symptoms reported Skin: no symptoms reported Psychiatric/Neurological: No Symptoms Reported Endocrine: No Symptoms Reported Past Uafmqya-Iaaive-Gynwfg Hx Patient Social History Alcohol Use: Rarely Uses Alcohol Beverage of Choice: Beer, Wine Recreational Drug Use: No Drug of Choice: HX OF THC AND METH USE 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, DENIES IV USE Smoking Status: Former Smoker Type Used: Cigarettes Former Smoker, Quit: Feb 09, 1998 2nd Hand Smoke Exposure: No Recent Foreign Travel: No Contact w/Someone Who Travel: No Recent Infectious Disease Expo: No Recent Hopitalizations: No Seasonal Allergies Seasonal Allergies: Yes Past Medical History Surgeries: Yes Abdominal, Bowel Surgery, Section, Joint Replacement, Orthopedic Respiratory: Yes Asthma Currently Using CPAP: No Currently Using BIPAP: No Cardiac: Yes Hypertension Neurological: No Reproductive Disorders: Yes (MENORRHAGIA) Female Reproductive Disorders: Menstrual Problems, Endometriosis Sexually Transmitted Disease: No HIV/AIDS: No Genitourinary: No Gastrointestinal: Yes (FATTY LIVER; HAD "TWISTED BOWEL" AFTER /HAD SURGERY) Liver Disease/Jaundice, Chronic Constipation Musculoskeletal: Yes (LEFT HIP REPLACEMENT) Arthritis, Chronic Back Pain Endocrine: Yes ("BORDERLINE DIABETES" PER PT; MORBID OBESITY) HEENT: No Loss of Vision: Denies Hearing Impairment: Denies Cancer: No Psychosocial: Yes Anxiety, Depression Integumentary: Yes Eczema Blood Disorders: No Adverse Reaction/Blood Tranf: No Family Medical History No Pertinent Family Hx Physical Exam Vital Signs Vital Signs - First Documented 06/13/18 12:38 Temp 97.9 Pulse 70 Resp 20 B/P (MAP) 144/85 (104) Pulse Ox 97 O2 Delivery Room Air Capillary Refill : Less Than 3 Seconds Height/Weight/BMI Height: 5'4.00" Weight: 313lbs. 8.0oz. 141.254173lp; 54.0 BMI Method:Actual General Appearance: WD/WN, no apparent distress, obese HEENT: PERRL/EOMI, normal ENT inspection Neck: non-tender, full range of motion Respiratory: no respiratory distress, no accessory muscle use Gastrointestinal: normal bowel sounds, soft; No tenderness; other (the right upper quadrant and epigastric region, the area of pain, is nontender to deep palpation.) Extremities: normal range of motion, non-tender Neurologic/Psychiatric: alert, normal mood/affect, oriented x 3 Skin: normal color, warm/dry Progress/Results/Core Measures Results/Orders Lab Results Laboratory Tests Test 06/13/18 14:12 Range/Units White Blood Count 7.7 4.3-11.0 10^3/uL Red Blood Count 5.02 4.35-5.85 10^6/uL Hemoglobin 13.1 11.5-16.0 G/DL Hematocrit 41 35-52 % Mean Corpuscular Volume 82 80-99 FL Mean Corpuscular Hemoglobin 26 25-34 PG Mean Corpuscular Hemoglobin Concent 32 32-36 G/DL Red Cell Distribution Width 15.7 H 10.0-14.5 % Platelet Count 267 130-400 10^3/uL Mean Platelet Volume 10.2 7.4-10.4 FL Neutrophils (%) (Auto) 64 42-75 % Lymphocytes (%) (Auto) 26 12-44 % Monocytes (%) (Auto) 9 0-12 % Eosinophils (%) (Auto) 1 0-10 % Basophils (%) (Auto) 0 0-10 % Neutrophils # (Auto) 4.9 1.8-7.8 X 10^3 Lymphocytes # (Auto) 2.0 1.0-4.0 X 10^3 Monocytes # (Auto) 0.7 0.0-1.0 X 10^3 Eosinophils # (Auto) 0.1 0.0-0.3 10^3/uL Basophils # (Auto) 0.0 0.0-0.1 10^3/uL Sodium Level 139 135-145 MMOL/L Potassium Level 3.2 L 3.6-5.0 MMOL/L Chloride Level 99 98-107 MMOL/L Carbon Dioxide Level 29 21-32 MMOL/L Anion Gap 11 5-14 MMOL/L Blood Urea Nitrogen 6 L 7-18 MG/DL Creatinine 0.66 0.60-1.30 MG/DL Estimat Glomerular Filtration Rate > 60 BUN/Creatinine Ratio 9 Glucose Level 93 70-105 MG/DL Calcium Level 9.3 8.5-10.1 MG/DL Corrected Calcium 9.4 8.5-10.1 MG/DL Total Bilirubin 0.5 0.1-1.0 MG/DL Aspartate Amino Transf (AST/SGOT) 28 5-34 U/L Alanine Aminotransferase (ALT/SGPT) 32 0-55 U/L Alkaline Phosphatase 75 40-136 U/L Total Protein 7.5 6.4-8.2 GM/DL Albumin 3.9 3.2-4.5 GM/DL Lipase 15 8-78 U/L My Panchito Flanagan - JASMEET BATEMAN GYROSCOPIC INSTRUMENT MECHANIC Cbc With Automated Diff (06/13/18 13:39) Comprehensive Metabolic Panel (06/13/18 13:39) Lipase (06/13/18 13:39) Ed Iv/Invasive Line Start (06/13/18 13:39) Ns Iv 1000 Ml (Sodium Chloride 0.9%) (06/13/18 13:45) Stool Culture (06/13/18 13:39) C Difficile Ag + Toxin A/B. (06/13/18 13:39) Parasite Scrn Stool Giard Cryp (06/13/18 13:39) Potassium Chloride (Tablet) (K Dur Table (06/13/18 15:00) Vital Signs/I&O 06/13/18 12:38 Temp 97.9 Pulse 70 Resp 20 B/P (MAP) 144/85 (104) Pulse Ox 97 O2 Delivery Room Air Blood Pressure Mean: 104 Departure Communication (Admissions) Patient was unable to provide a stool sample despite 2 attempts here in the emergency room. She stated after the first attempt that maybe if she got some saltine crackers would be able to provide a stool sample as intake of any solid foods results and almost immediate stool. We gave her 6 packets of saltine crackers and 30 minutes later she is still unable to provide stool sample. We will discharge to home. Impression Primary Impression: Gastroenteritis Disposition: 01 HOME, SELF-CARE Condition: Stable Departure-Patient Inst. Decision time for Depature: 13:51 [facility] Primary Care Physician DIANN OROZCO (Family) Primary Care Physician Patient Instructions: [id number] Add. Discharge Instructions: 1. Follow-up with your family doctor tomorrow. Return to ER for any concerns. All discharge instructions reviewed with patient and/or family. Voiced understanding. Scripts Potassium Chloride (Potassium Chloride) 20 Meq Tablet.er 40 MEQ PO DAILY, #4 TAB Prov: JASMEET BATEMAN GYROSCOPIC INSTRUMENT MECHANIC 06/13/18 JASMEET BATEMAN GYROSCOPIC INSTRUMENT MECHANIC June 13, 2018 13:51
[2018-06-13 14:15] LABS: BASOPHILS % (AUTO) 0 % (0-10); EOSINOPHILS # (AUTO) 0.1 10^3/uL (0.0-0.3); EOSINOPHILS % (AUTO) 1 % (0-10); HEMATOCRIT 41 % (35-52); HEMOGLOBIN 13.1 G/DL (11.5-16.0); LYMPHOCYTES % (AUTO) 26 % (12-44); MEAN CORPUSCULAR HEMOGLOBIN 26 PG (25-34); MEAN CORPUSCULAR HGB CONC 32 G/DL (32-36); MEAN CORPUSCULAR VOLUME 82 FL (80-99); MEAN PLATELET VOLUME 10.2 FL (7.4-10.4); MONOCYTES # (AUTO) 0.7 X 10^3 (0.0-1.0); MONOCYTES % (AUTO) 9 % (0-12); NEUTROPHILS # (AUTO) 4.9 X 10^3 (1.8-7.8); NEUTROPHILS % (AUTO) 64 % (42-75); PLATELET COUNT 267 10^3/uL (130-400); RED CELL DISTRIBUTION WIDTH 15.7 % (10.0-14.5); WHITE BLOOD COUNT 7.7 10^3/uL (4.3-11.0)
[2018-06-13 14:41] LABS: ALANINE AMINOTRANSFERASE 32 U/L (0-55); ALBUMIN 3.9 GM/DL (3.2-4.5); ALKALINE PHOSPHATASE 75 U/L (40-136); BILIRUBIN,TOTAL 0.5 MG/DL (0.1-1.0); BUN/CREATININE RATIO 9; CALCIUM 9.3 MG/DL (8.5-10.1); CARBON DIOXIDE 29 MMOL/L (21-32); CHLORIDE 99 MMOL/L (98-107); CREATININE SERUM 0.66 MG/DL (0.60-1.30); GFR ESTIMATED > 60; GLUCOSE 93 MG/DL (70-105); LIPASE 15 U/L (8-78); POTASSIUM 3.2 MMOL/L (3.6-5.0); SODIUM 139 MMOL/L (135-145); TOTAL PROTEIN 7.5 GM/DL (6.4-8.2)
[2018-06-13] MEDS ORDERED: POTA-51 PO (14:57)
[2018-06-13] MEDS ORDERED: KCL 20 MEQ TAB (K-DUR) PO ONE (15:00)
--- NOTE | 2018-06-13 15:01 | NUR ---
PATIENT ATTEMPTS TO GIVE STOOL SAMPLE BUT IS ABLE TO HAVE A BM AT THIS TIME.
[2018-06-13 15:04] VITALS: BP 143/85
== END 2018-06-13 15:05 | disposition home or self-care (01) ==
LOC: EDUNIT# 12:35 → ER 12:37
DX: K52.9 Noninfective gastroenteritis and colitis, unspecified (principal); I10 Essential (primary) hypertension; J45.909 Unspecified asthma, uncomplicated; E66.01 Morbid (severe) obesity due to excess calories; F41.9 Anxiety disorder, unspecified; F32.9 Major depressive disorder, single episode, unspecified; Z96.642 Presence of left artificial hip joint; Z68.43 Body mass index [BMI] 50.0-59.9, adult; Z87.19 Personal history of other diseases of the digestive system; Z87.448 Personal history of other diseases of urinary system; Z88.8 Allergy status to other drugs, medicaments and biological substances; Z79.52 Long term (current) use of systemic steroids; Z87.891 Personal history of nicotine dependence; Z98.890 Other specified postprocedural states
CPT/HCPCS: 36415; 80053; 83690; 85025; 99283

== ENCOUNTER 2018-10-16 19:13 | Emergency (ER) | payer SELFPAY ==
[~2018-10-16] VITALS: Ht 162.6 cm; Wt 142.9 kg
[~2018-10-16 19:13] MED LIST changes: +POTA-51 PO
[2018-10-16] MEDS ORDERED: CITA20TA9 (19:29)
[2018-10-16] MEDS ORDERED: TR1C15 (19:29)
[2018-10-16] MEDS ORDERED: HYDR12.5 (19:29)
[2018-10-16] MEDS ORDERED: BACL10TA (19:29)
[2018-10-16] MEDS ORDERED: LISI2.5T (19:29)
[2018-10-16] MEDS ORDERED: HYDR-700 (19:29)
[2018-10-16] MEDS ORDERED: SPIR25TA5 (19:29)
[2018-10-16] MEDS ORDERED: PRED10TA22 PO (19:36)
--- NOTE | 2018-10-16 19:36 | ED Integumentary General ---
General Chief Complaint: Skin/Wound Problems Stated Complaint: RASH Source: patient Exam Limitations: no limitations History of Present Illness Date Seen by Provider: Oct 16, 2018 Time Seen by Provider: 19:32 Initial Comments To ER with diffuse rash. Present for about 6 weeks. She was initially told by her doctor he was pityriasis rosea, she was given hydroxyzine and topical triamcinolone 0.1% cream. She denies any improvement in fact notices worsening. No fevers chills or systemic symptoms. This encompasses the back the chest torso and extremities. Very pruritic. Timing/Duration: constant, getting worse Severity: moderate Location: torso Associated Symptoms: denies symptoms Allergies and Home Medications Allergies Coded Allergies: Qxplpif-Wod-Ssq Reductase Inhibitor (Verified Allergy, Intermediate, FATIGUE, 11/08/15) Home Medications Cetirizine HCl 10 Mg Tablet, 10 MG PO DAILY, (Reported) Cyanocobalamin (Vitamin B-12) 2,500 Mcg Tablet, 2,500 MCG PO DAILY, (Reported) Hydrochlorothiazide 12.5 Mg Tablet, 12.5 MG PO DAILY, (Reported) Ibuprofen 600 Mg Tablet, 600 MG PO Q6H Prescribed by: MAGNOLIA ADAM on 01/14/16 1232 Lisinopril 10 Mg Tablet, 10 MG PO DAILY, (Reported) Patient Home Medication List Home Medication List Reviewed: Yes Review of Systems Review of Systems Constitutional: see HPI EENTM: see HPI Respiratory: no symptoms reported Cardiovascular: no symptoms reported Genitourinary: no symptoms reported Musculoskeletal: see HPI Skin: see HPI Psychiatric/Neurological: No Symptoms Reported Endocrine: No Symptoms Reported Past Hcjqpmi-Ppqdrn-Fccjvo Hx Patient Social History Alcohol Use: Rarely Uses Number of Drinks Today: Alcohol Beverage of Choice: Beer, Wine Recreational Drug Use: No Drug of Choice: denies Smoking Status: Former Smoker Type Used: Cigarettes Former Smoker, Quit: Feb 09, 1998 2nd Hand Smoke Exposure: No Recent Hopitalizations: No Physical Abuse: No Sexual Abuse: No Mistreated: No Fear: No Immunizations Up To Date Tetanus Booster (TDap): Unknown Seasonal Allergies Seasonal Allergies: Yes Past Medical History Surgeries: Yes Abdominal, Bowel Surgery, Section, Joint Replacement, Orthopedic Respiratory: Yes Asthma Currently Using CPAP: No Currently Using BIPAP: No Cardiac: Yes Hypertension Neurological: No Reproductive Disorders: Yes (MENORRHAGIA) Female Reproductive Disorders: Menstrual Problems, Endometriosis Sexually Transmitted Disease: No HIV/AIDS: No Genitourinary: No Gastrointestinal: Yes Gastroesophageal Reflux, Liver Disease/Jaundice, Chronic Constipation Musculoskeletal: Yes Arthritis, Chronic Back Pain Endocrine: Yes HEENT: No Loss of Vision: Denies Hearing Impairment: Denies Cancer: No Psychosocial: Yes Anxiety, Depression Integumentary: Yes Eczema Blood Disorders: No Adverse Reaction/Blood Tranf: No Family Medical History No Pertinent Family Hx Physical Exam Vital Signs Capillary Refill : General Appearance: WD/WN, no apparent distress HEENT: PERRL/EOMI, normal ENT inspection Neck: non-tender, full range of motion Respiratory: no respiratory distress, no accessory muscle use Gastrointestinal: normal bowel sounds, non tender, soft Neurologic/Psychiatric: alert, normal mood/affect, oriented x 3 Skin: normal color, warm/dry Skin Problem Character: other (diffuse erythematous scaly patch without central clearing or signs of secondary infection. The rash is flat,Entire upper back, the lower abdomen, a few quarter-sized lesions to the lower extremities.) Departure Impression Primary Impression: Rash and nonspecific skin eruption Disposition: 01 HOME, SELF-CARE Condition: Stable Departure-Patient Inst. Decision time for Depature: 19:34 [facility] Primary Care Physician DIANN OROZCO (Family) Primary Care Physician Patient Instructions: Skin Rash (DC) Add. Discharge Instructions: 1. Return to ER for any concerns 2. Follow-up with your doctor next week 3. Take 1-2 tablets (to 50 mg) of the hydroxyzine every 6-8 hours as needed for itching. Take steroids as directed. All discharge instructions reviewed with patient and/or family. Voiced understanding. Scripts Prednisone (Prednisone) 10 Mg Tab.ds.pk 10 MG PO DAILY, #21 EA Take 6 tabs(60mg)daily,decrease by 1 tab(10MG)daily. Prov: JASMEET BATEMAN APRN 10/16/18 JASMEET BATEMAN APRN Oct 16, 2018 19:36
[2018-10-16 19:43] VITALS: BP 159/80
[2018-10-16] MEDS ORDERED: predniSONE 20 MG TAB PO ONE (19:45)
== END 2018-10-16 19:43 | disposition home or self-care (01) ==
LOC: EDUNIT# 19:13 → ER 19:15
DX: R21 Rash and other nonspecific skin eruption (principal); J45.909 Unspecified asthma, uncomplicated; I10 Essential (primary) hypertension; K21.9 Gastro-esophageal reflux disease without esophagitis; F41.9 Anxiety disorder, unspecified; F32.9 Major depressive disorder, single episode, unspecified; Z87.19 Personal history of other diseases of the digestive system; Z88.8 Allergy status to other drugs, medicaments and biological substances; Z87.891 Personal history of nicotine dependence
CPT/HCPCS: 99283

== ENCOUNTER → 2020-05-15 | Outpatient (CLI) | payer OTHER ==
[~2020-05-15] MED LIST changes: +BACL10TA; -CETI10TA20 PO; +CETI10TA49 PO; +CITA20TA9; +HYDR-700; +HYDR12.5; -LISI10TA2 PO; +LISI10TA25 PO; +LISI2.5T; -ORLI120C22 PO; +ORLI120C23 PO; +PRED10TA22 PO; +SPIR25TA5; +TR1C15; -TRAM50TA2 PO; +TRM50T PO
--- NOTE | 2020-05-15 11:54 | Diagnostic Imaging Report ---
Indication: Routine screening. Comparison is made with prior mammogram 11/21/2015. 2-D and 3-D bilateral screening mammography was performed with CAD. Scattered fibroglandular densities are identified bilaterally. No mass or malignant appearing microcalcifications are seen. Axillae are unremarkable. IMPRESSION: BI-RADS Category 1 No mammographic features suspicious for malignancy are identified. ACR BI-RADS Category 1: Negative. Result letter will be mailed to the patient. Note: At least 10% of breast cancer is not imaged by mammography. Dictated by: Dictated on workstation # [id number]
== END ==
LOC: RAD 08:17
PROVIDERS: ATTEND Nurse Practitioner Family
DX: Z12.31 Encounter for screening mammogram for malignant neoplasm of breast (principal)
CPT/HCPCS: 77063; 77067